=== PATIENT | female | born 1955 | race Caucasian/White ===

== ENCOUNTER 2016-11-28 16:37 | Inpatient (IN) | payer OTHER ==
--- NOTE | 2016-11-28 16:53 | ED Physician Chart ---
ED Chief Complaint/HPI - Patient Information Date Seen:: 11/28/16 Time Seen:: 16:48 Chief Complaint:: generalized weakness History of Present Illness:: 61-year-old female history of alcohol abuse, brought in by asthma with acute, constant, severe, generalized weakness since yesterday. Has associated yellowing of the eyes and distended abdomen. Says that she was seen and [facility] yesterday and had 9 L of fluid drained from her abdominal cavity. Says her last drink was 5 days ago. Historian:: Patient Review:: Nurse's Note Reviewed ED Review of Systems - Review of Systems Other: Complete system review otherwise unremarkable except as noted in history of present illness. ED Past Medical History - Past Medical History Past Medical History: Other (cirrhosis) Family History: None Social History: Non Smoker, No Alcohol (recently quit alcohol), No Drug Use Surgical History: other Psychiatricy History: None Medication: None Family Medical History - Family Member Mother History Unknown: Yes ED Physical Exam - Physical Examination Other:: INITIAL VITAL SIGNS: Reviewed by me GENERAL: Alert and interactive. No acute distress. Smells of urine. HEAD: Head is normocephalic and atraumatic EYES: EOMI. PERRL. Scleral icterus. No conjunctival injection ENT: Moist mucous membranes. NECK: Supple. No masses. Full range of motion RESPIRATORY: No tachypnea. Clear breath sounds bilaterally. No wheezing, rales, or rhonchi CV: Regular rate and rhythm. No murmurs, rubs, or gallops ABDOMEN: Soft, distended, positive fluid wave. Nontender. No guarding. No rebound. No masses. EXTREMITIES: No deformity. No cyanosis. No edema. SKIN: Warm and dry. Minor abrasions to the right upper extremity and bilateral lower extremities. NEUROLOGIC: Alert and oriented. Face is symmetric. Speech is normal. Moves all extremities equally. Motor and sensory distally intact. ED Labs/Radiology/EKG Results - Lab Results Results: Lab Results 11/28/16 11/28/16 11/28/16 Range/Units 17:06 17:06 17:06 WBC 14.5 H (4.8-10.8) Th/cmm RBC 2.69 L (3.80-5.10) Mil/cmm Hgb 10.5 L (11.7-15.5) gm/dL Hct 29.9 L (35.0-45.0) % MCV 111.2 H (81-100) fl MCH 39.0 H (27.0-31.0) pg MCHC Differential 35.0 (28.0-36.0) pg RDW 14.8 (11.5-20.0) % Plt Count 136 L (150-400) Th/cmm MPV 7.2 fl Band Neutrophils % 5 (0-10) % Neutrophils (Manual) 84 H (40-80) % Lymphocytes 8 L (20-50) % Monocytes 2 (2-10) % Nucleated RBCs 1.0 H (0-0) % Platelet Estimate ADEQUATE (NORMAL) Anisocytosis 2+ Macrocytosis 2+ Schistocytes 1+ PT 49.6 H (9.5-11.5) SECONDS INR 4.41 H* (0.5-1.4) PTT (Actin FS) 34.0 (26.0-38.0) SECONDS Sodium 131 L (136-145) mEq/L Potassium 3.5 (3.5-5.1) mEq/L Chloride 91 L (98-107) mEq/L Carbon Dioxide 25.0 (21.0-31.0) mEq/L Anion Gap 18.5 H (7.0-16.0) BUN 38 H (7-25) mg/dL Creatinine 1.9 H (0.6-1.2) mg/dL Est GFR ( Amer) 34.6 (>90) ml/min Est GFR (Non-Af Amer) 28.6 ml/min BUN/Creatinine Ratio 20.0 Glucose 112 H (70-105) mg/dL Whole Bld Lactic Acid (0.60-1.99) mmol/L Calcium 9.3 (8.6-10.3) mg/dL Total Bilirubin 8.3 H (0.3-1.0) mg/dL AST 364 H (13-39) U/L ALT 120 H (7-52) U/L Alkaline Phosphatase 162 H (34-104) U/L Creatine Kinase 697 H (30-223) U/L Total Protein 5.9 L (6.0-8.3) gm/dL Albumin 3.4 L (3.7-5.3) gm/dL Globulin 2.5 gm/dL Albumin/Globulin Ratio 1.4 (1.0-1.8) 11/28/16 Range/Units 17:06 WBC (4.8-10.8) Th/cmm RBC (3.80-5.10) Mil/cmm Hgb (11.7-15.5) gm/dL Hct (35.0-45.0) % MCV (81-100) fl MCH (27.0-31.0) pg MCHC Differential (28.0-36.0) pg RDW (11.5-20.0) % Plt Count (150-400) Th/cmm MPV fl Band Neutrophils % (0-10) % Neutrophils (Manual) (40-80) % Lymphocytes (20-50) % Monocytes (2-10) % Nucleated RBCs (0-0) % Platelet Estimate (NORMAL) Anisocytosis Macrocytosis Schistocytes PT (9.5-11.5) SECONDS INR (0.5-1.4) PTT (Actin FS) (26.0-38.0) SECONDS Sodium (136-145) mEq/L Potassium (3.5-5.1) mEq/L Chloride (98-107) mEq/L Carbon Dioxide (21.0-31.0) mEq/L Anion Gap (7.0-16.0) BUN (7-25) mg/dL Creatinine (0.6-1.2) mg/dL Est GFR ( Amer) (>90) ml/min Est GFR (Non-Af Amer) ml/min BUN/Creatinine Ratio Glucose (70-105) mg/dL Whole Bld Lactic Acid 2.75 H* (0.60-1.99) mmol/L Calcium (8.6-10.3) mg/dL Total Bilirubin (0.3-1.0) mg/dL AST (13-39) U/L ALT (7-52) U/L Alkaline Phosphatase (34-104) U/L Creatine Kinase (30-223) U/L Total Protein (6.0-8.3) gm/dL Albumin (3.7-5.3) gm/dL Globulin gm/dL Albumin/Globulin Ratio (1.0-1.8) - Radiology Results Results: Single AP VIEW Portable Chest X-ray was interpreted independently and contemporaneously by Allen Hoyos MD: No cardiomegaly Normal mediastinum No lung infiltrates No pneumothorax Pulmonary congestion No soft tissue or bony abnormalities - EKG Interpretations Comments:: 12-lead EKG Interpretation by Allen Hoyos MD: Normal Sinus Rhythm with ventricular rate of 98 beats per minute Normal axis Normal intervals No acute ST or T wave changes. No obvious STEMI ED Assessment - Assessment Critical Care Time: 35 Excludes all billable procedures: Yes This condition life threatening/high prob of deterioration: Yes Assessment/Comments:: Critical Care Time: 35 minutes Treatments/Evaluations: Close monitoring and treatment of unstable vital signs, cardiorespiratory, and neurologic status, while maintaining tight balance of fluid, respiratory, and cardiac interventions. This time includes discussing the case with the patient and the patient's family. This time does not include all procedures stated elsewhere in this record. This time also includes reviewing old records, labs and radiological studies. This time includes examining and re-examining the patient. Additionally, this time also includes arranging care with admitting and consulting physicians. ED Septic Shock - . Is Septic Shock (SBP<90, OR Lactate>4 mmol\L) present?: Yes - <6hrs of presentation: Vital Signs: Vital Signs Temp 97.9 F 11/28/16 17:02 HR 104 11/28/16 17:02 RR 18 11/28/16 17:02 BP 81/45 11/28/16 17:02 O2 Sat % 94 11/28/16 17:02 Temp 97.9 F 11/28/16 17:02 HR 101 11/28/16 18:14 RR 16 11/28/16 18:14 BP 94/58 11/28/16 18:14 O2 Sat % 94 11/28/16 18:14 Assessment of Lungs: Lung CTA bilateral, No Rales, No Wheezing Assessment of Heart: RRR, No thrill, No Gallops, No Murmur EKG Interpretation: NSR, No ST elevation, Documented in Result Capillary refill evaluation: Capillary refill < 2 secs Skin Exam: Warm, Dry, No Edema - Peripheral pulse evaluation Brachial Peripheral pulse evaluation-quality: +2 (normal) - Time of Reassessment Time of Reassessment: 17:56 ED Reassessment (Disposition) - Reassessment Reassessment:: Patient arrived extremely hypotensive and tachycardic. Blood pressure was noted to be 81 systolic. She smells of urine. She has a history of heavy alcohol use. Last drink 5 days ago. She is alert and oriented. Main complaint is weakness. She has a distended abdomen with fluid wave. Says not liters were taken off of the abdomen yesterday. As of the severe hypotension we gave IV fluids. Patient has a lactic acid level greater than 2. With the severe hypotension and elevated lactic acid and elevated white blood cell count of 14 and tachycardia patient has septic shock. Appears to have UTI. Multiple lab abnormalities including INR greater than 4 Bilirubin greater than 8 Severe macrocytic anemia This patient was critically ill on arrival. She required critical care time of 35 minutes. We did stabilize this patient in the ER. I discussed the case in detail with the admitting physician. Patient admitted for further workup and treatment. Admit MDM: Patient's infectious symptoms have not stabilized and the patient is at risk of rapid decompensation. The patient will be admitted for careful hydration, antibiotic therapy, and infectious source control. Severe Sepsis criteria: Infectious source: Urine End organ damage indicated by: Lactate > 2.0 mmol/L Hypotension (SBP < 90 or >40 mmHG drop or MAP < 65) INR > 1.5 Bili > 2 Sepsis Management: Time of recognition of severe sepsis/septic shock: Within 3 hours of recognition: Blood cultures x 2 before broad-spectrum antibiotics: Yes 30 ml/kg NS bolus Completed Initial lactate 2.75 Repeat lactate pending Septic Shock Assessment: Persistent hypotension (SBP < 90 or 40 mmHg drop, MAP < 65) despite 30 mL/kg IV fluid bolus, No Accepting Care Team Current data and ongoing care discussed. Time: 1819 Admitting Physician: Evie Young Disposal Worker(s): Outstanding Data: Repeat lactic acid Reassessment Condition:: Improved - Diagnosis Diagnosis:: Severe sepsis acute UTI Hyperbilirubinemia Elevated INR Macrocytic anemia Transaminitis History of alcohol abuse - Patient Disposition Discharge/Transfer:: Acute Care w/in this hosp Admitted to:: Telemetry Admitting Medical Physician:: Donnell Ignacio Time:: 18:03 Condition at Disposition:: Stable ED Discharge Plan - Patient Disposition Admit/Discharge/Transfer: Acute Care w/in this hosp
[2016-11-28] MEDS ORDERED: Lactated Ringer 1,000 ML IV ONE ×3 (16:58→18:05)
[2016-11-28] MEDS ORDERED: cefTRIAXone 1 GM in Sodium Chloride 0.9% 50 ML IV ONE (16:59)
[2016-11-28 17:15] LABS: HEMATOCRIT 29.9 % (35.0-45.0); HEMOGLOBIN 10.5 gm/dL (11.7-15.5); MEAN PLATELET VOLUME 7.2 fl; PLATELET COUNT 136 Th/cmm (150-400); RED BLOOD COUNT 2.69 Mil/cmm (3.80-5.10); RED CELL DISTRIBUTION WIDTH 14.8 % (11.5-20.0)
[2016-11-28 17:18] LABS: MEAN CELL VOLUME 111.2 fl (81-100); WHITE BLOOD COUNT 14.5 Th/cmm (4.8-10.8)
[2016-11-28 17:26] LABS: PROTHROMBIN TIME (TEST) 49.6 SECONDS (9.5-11.5)
[2016-11-28 17:29] LABS: ALB/GLOB RATIO 1.4 (1.0-1.8); ANION GAP 18.5 (7.0-16.0); BILIRUBIN,TOTAL 8.3 mg/dL (0.3-1.0); CALCIUM SERUM 9.3 mg/dL (8.6-10.3); CREATININE - SERUM 1.9 mg/dL (0.6-1.2); POTASSIUM SERUM 3.5 mEq/L (3.5-5.1)
[2016-11-28 17:41] LABS: ANISOCYTOSIS 2+; BAND NEUTROPHILE 5 % (0-10); NEUTROPHILS 84 % (40-80); PLATELET ESTIMATE ADEQUATE (NORMAL); TOTAL CELLS COUNTED 100
[2016-11-28 17:42] LABS: SCHISTOCYTES 1+
[2016-11-28 17:49] LABS: INR 4.41 (0.5-1.4)
[2016-11-28 18:01] LABS: URINE BILIRUBIN MODERATE (NEGATIVE); URINE BLOOD LARGE (NEGATIVE); URINE GLUCOSE (UA) NEGATIVE (NEGATIVE); URINE KETONE 15 mg/dL (NEGATIVE); URINE PH 5.5 (4.6 - 8.0); URINE PROTEIN 30 mg/dL (NEGATIVE)
[2016-11-28 18:02] LABS: URINE COLOR YELLOW
[2016-11-28 18:06] LABS: URINE BACTERIA MODERATE /hpf (NONE SEEN); URINE EPITHELIAL CELLS MODERATE /lpf (FEW); URINE WBC 50-100 /hpf (0-5)
[2016-11-28 18:13] LABS: CREATINE KINASE MB 9.7 ng/mL (0.6-6.3)
[2016-11-28] MEDS ORDERED: cefTRIAXone 1 GM in Sodium Chloride 0.9% 50 ML IV SCH (21:50)
[2016-11-28] MEDS ORDERED: Sodium Chloride 0.9% 1,000 ML IV SCH (21:50)
[2016-11-29 06:31] LABS: INR 3.55 (0.5-1.4); PROTHROMBIN TIME (TEST) 39.4 SECONDS (9.5-11.5)
[2016-11-29 06:39] LABS: ALB/GLOB RATIO 1.1 (1.0-1.8); ANION GAP 15.1 (7.0-16.0); BILIRUBIN,TOTAL 7.4 mg/dL (0.3-1.0); BUN/CREATININE RATIO 24.4; CALCIUM SERUM 8.5 mg/dL (8.6-10.3); CARBON DIOXIDE 25.2 mEq/L (21.0-31.0); CREATININE - SERUM 1.6 mg/dL (0.6-1.2); POTASSIUM SERUM 3.3 mEq/L (3.5-5.1)
[2016-11-29 07:14] LABS: HEMATOCRIT 28.7 % (35.0-45.0); MEAN CORPUSCULAR HEMOGLOBIN 38.4 pg (27.0-31.0); MEAN CORPUSCULAR HGB CONC 34.7 pg (28.0-36.0); MEAN PLATELET VOLUME 7.5 fl; RED CELL DISTRIBUTION WIDTH 14.9 % (11.5-20.0)
[2016-11-29 07:16] LABS: MEAN CELL VOLUME 110.4 fl (81-100); PLATELET COUNT 101 Th/cmm (150-400); WHITE BLOOD COUNT 10.6 Th/cmm (4.8-10.8)
--- NOTE | 2016-11-29 08:00 | History and Physical ---
History of Present Illness - HPI Chief Complaint: Generalized Weakness HPI: 61 year old female with history of alcohol abuse presents to [facility] ER via ambulance with generalized weakness and fatigue. Patient was noted to be hypotensive while in the ER and given IV hydration. Patient states that her last drink was 5 days ago. Patient presents with yellowing of her eyes and distended abdomen. States that she was seen at [facility] a few days ago and underwent paracentesis of her abdominal cavity. her initial labwork shows WBC's 14K Platelets 136K PT/INR 49.6/4.41. BUN 38 cr 1.9 AST 364 ALT 120 CK 697 Vital Signs: Last Vital Signs Temp 97.9 F 11/29/16 04:00 Pulse 72 11/29/16 04:00 Resp 18 11/29/16 04:00 BP 97/57 11/29/16 04:00 Pulse Ox 97 11/29/16 04:00 Past Medical History Cardiovascular: Report: No Pertinent Hx Pulmonary: Report: No Pertinent Hx BOLOGNA [employer]ER: Report: No Pertinent Hx GI: Report: Other (Alcoholic Liver Cirrhosis,) Psych: Report: No Pertinent Hx Musculoskeletal: Report: No Pertinent Hx Rheumatologic: Report: No pertinent Hx Infectious Disease: Report: No Pertinent Hx Renal/: Report: No Pertinent Hx Endocrine: Report: No Pertinent Hx Dermatology: Report: No Pertinent Hx - Past Surgical History Past Surgical History: No pertinent Hx Family Medical History - Family Member Mother History Unknown: Yes Social History Smoke: No Alcohol: None Drugs: None Lives: Alone - Medications Home Medications: Home Medication Medication Instructions Recorded Type NK [No Home Meds] 11/28/16 History - Allergies Allergies/Adverse Reactions: Allergies Allergy/AdvReac Type Severity Reaction Status Date / Time Penicillins [PCN] Allergy Verified 11/28/16 17:09 Review of Systems - Review of Systems Constitutional: Report: Weakness, Malaise Eyes: Report: Other (jaundice) ENT: Report: No Significant Respiratory: Report: No Significant Cardiovascular: Report: No Significant Gastrointestinal: Report: Other (abdominal distension) Genitourinary: Report: No Significant Musculoskeletal: Report: No Significant Skin: Report: No Significant Neurological: Report: Weakness Physical Exam - Physical Exam HEENT: Report: Ears Nose Throat within normal limits, Pharnyx within normal limits Neck: Report: Within normal limits Cardiovascular Systems: Report: +s1/s2 noted, Regular, Rate and Rhythm Respiratory: Report: Breath Sounds are within normal limits, Clear to Auscultation of lung gill Abdomen: Report: Hepatomegaly Noted Extremities: Report: Non-tender to palpation. Skin: Report: Color of skin is within normal limits Neuro/Psych: Report: Mood affect is within normal limits, A+Ox3 - Lab Results All Lab Results last 24 hours: Laboratory Last Values WBC 10.6 Th/cmm (4.8-10.8) D 11/29/16 05:52 RBC 2.60 Mil/cmm (3.80-5.10) L 11/29/16 05:52 Hgb 10.0 gm/dL (11.7-15.5) L 11/29/16 05:52 Hct 28.7 % (35.0-45.0) L 11/29/16 05:52 MCV 110.4 fl (81-100) H 11/29/16 05:52 MCH 38.4 pg (27.0-31.0) H 11/29/16 05:52 MCHC Differential 34.7 pg (28.0-36.0) 11/29/16 05:52 RDW 14.9 % (11.5-20.0) 11/29/16 05:52 Plt Count 101 Th/cmm (150-400) L D 11/29/16 05:52 MPV 7.5 fl 11/29/16 05:52 Band Neutrophils % 5 % (0-10) 11/28/16 17:06 Neutrophils (Manual) 84 % (40-80) H 11/28/16 17:06 Lymphocytes 8 % (20-50) L 11/28/16 17:06 Monocytes 2 % (2-10) 11/28/16 17:06 Nucleated RBCs 1.0 % (0-0) H 11/28/16 17:06 Platelet Estimate ADEQUATE (NORMAL) 11/28/16 17:06 Anisocytosis 2+ 11/28/16 17:06 Macrocytosis 2+ 11/28/16 17:06 Schistocytes 1+ 11/28/16 17:06 PT 39.4 SECONDS (9.5-11.5) H 11/29/16 05:52 INR 3.55 (0.5-1.4) H 11/29/16 05:52 PTT (Actin FS) 34.0 SECONDS (26.0-38.0) 11/28/16 17:06 Sodium 130 mEq/L (136-145) L 11/29/16 05:52 Potassium 3.3 mEq/L (3.5-5.1) L 11/29/16 05:52 Chloride 93 mEq/L (98-107) L 11/29/16 05:52 Carbon Dioxide 25.2 mEq/L (21.0-31.0) 11/29/16 05:52 Anion Gap 15.1 (7.0-16.0) 11/29/16 05:52 BUN 39 mg/dL (7-25) H 11/29/16 05:52 Creatinine 1.6 mg/dL (0.6-1.2) H 11/29/16 05:52 Est GFR ( Amer) 42.1 ml/min (>90) 11/29/16 05:52 Est GFR (Non-Af Amer) 34.8 ml/min 11/29/16 05:52 BUN/Creatinine Ratio 24.4 11/29/16 05:52 Glucose 113 mg/dL (70-105) H 11/29/16 05:52 Whole Bld Lactic Acid 2.52 mmol/L (0.60-1.99) H* 11/28/16 19:12 Calcium 8.5 mg/dL (8.6-10.3) L 11/29/16 05:52 Total Bilirubin 7.4 mg/dL (0.3-1.0) H 11/29/16 05:52 AST 353 U/L (13-39) H 11/29/16 05:52 ALT 119 U/L (7-52) H 11/29/16 05:52 Alkaline Phosphatase 153 U/L (34-104) H 11/29/16 05:52 Creatine Kinase 697 U/L (30-223) H 11/28/16 17:06 CK-MB (CK-2) 9.7 ng/mL (0.6-6.3) H 11/28/16 17:06 Total Protein 5.0 gm/dL (6.0-8.3) L 11/29/16 05:52 Albumin 2.6 gm/dL (3.7-5.3) L 11/29/16 05:52 Globulin 2.4 gm/dL 11/29/16 05:52 Albumin/Globulin Ratio 1.1 (1.0-1.8) 11/29/16 05:52 Urine Source CLEAN C 11/28/16 17:52 Urine Color YELLOW 11/28/16 17:52 Urine Clarity CLOUDY (CLEAR) H 11/28/16 17:52 Urine pH 5.5 (4.6 - 8.0) 11/28/16 17:52 Ur Specific [place] 1.025 (1.005-1.030) 11/28/16 17:52 Urine Protein 30 mg/dL (NEGATIVE) H 11/28/16 17:52 Urine Glucose (UA) NEGATIVE mg/dL (NEGATIVE) 11/28/16 17:52 Urine Ketones 15 mg/dL (NEGATIVE) H 11/28/16 17:52 Urine Blood LARGE (NEGATIVE) H 11/28/16 17:52 Urine Nitrate NEGATIVE (NEGATIVE) 11/28/16 17:52 Urine Bilirubin MODERATE (NEGATIVE) H 11/28/16 17:52 Urine Urobilinogen 1.0 E.U./dL (0.2 - 1.0) 11/28/16 17:52 Ur Leukocyte Esterase MODERATE (NEGATIVE) H 11/28/16 17:52 Urine RBC 2-5 /hpf (0-5) 11/28/16 17:52 Urine WBC 50-100 /hpf (0-5) H 11/28/16 17:52 Ur Epithelial Cells MODERATE /lpf (FEW) 11/28/16 17:52 Urine Bacteria MODERATE /hpf (NONE SEEN) 11/28/16 17:52 Laboratory Results - last 24 hr 11/29/16 11/29/16 11/29/16 05:52 05:52 05:52 WBC 10.6 D RBC 2.60 L Hgb 10.0 L Hct 28.7 L MCV 110.4 H MCH 38.4 H MCHC Differential 34.7 RDW 14.9 Plt Count 101 L D MPV 7.5 PT 39.4 H INR 3.55 H Sodium 130 L Potassium 3.3 L Chloride 93 L Carbon Dioxide 25.2 Anion Gap 15.1 BUN 39 H Creatinine 1.6 H Est GFR ( Amer) 42.1 Est GFR (Non-Af Amer) 34.8 BUN/Creatinine Ratio 24.4 Glucose 113 H Calcium 8.5 L Total Bilirubin 7.4 H AST 353 H ALT 119 H Alkaline Phosphatase 153 H Total Protein 5.0 L Albumin 2.6 L Globulin 2.4 Albumin/Globulin Ratio 1.1 - Assessment Assessment: Acute Alcoholic liver Cirrhosis ... GI consult. U/S Abd. hepatitis panel coagulopathy ... repeat PT/INR anemia ... repeat CBC sepsis ... ID consult hypokalemia ... add KCL to IVF, repeat CMP tomorrow anemia ... repeat CBC CKD ... repeat CMP. Nephrology consult with Dr. Jtainder GOTTLIEB ... IV Levofloxacin - Plan Plan: Acute Alcoholic liver Cirrhosis ... GI consult. U/S Abd. hepatitis panel coagulopathy ... repeat PT/INR anemia ... repeat CBC sepsis ... ID consult hypokalemia ... add KCL to IVF, repeat CMP tomorrow anemia ... repeat CBC CKD ... repeat CMP. Nephrology consult with Dr. Jatinder GOTTLIEB ... IV Levofloxacin
[2016-11-29] MEDS ORDERED: 0.9% NS w/40 mEq KCL 1,000 ML IV SCH (08:13)
--- NOTE | 2016-11-29 08:15 | Diagnostic Imaging Report ---
Exam: Chest portable HISTORY: Pain Findings: Portable upright examination of chest at 1732 hours reviewed no prior studies available comparison. The study demonstrates atelectatic changes in left base with superimposed left pleural effusion. The right lung parenchyma is well aerated. Bony structures intact. Mediastinal structures midline the aortic arch calcified. IMPRESSION: Left basilar atelectasis with effusion, early pneumonic infiltrate cannot be excluded, follow-up examination recommended.
[2016-11-29] MEDS ORDERED: Levofloxacin 500mg/100mL 500 MG/100 ML BAG IV SCH (09:00)
[2016-11-29 10:04] LABS: ANISOCYTOSIS 1+; BAND NEUTROPHILE 7 % (0-10); NEUTROPHILS 79 % (40-80); PLATELET ESTIMATE DECREASED PLATELETS (NORMAL); PLATELET MORPHOLOGY NORMAL (NORMAL); TOTAL CELLS COUNTED 100
[2016-11-29] MEDS ORDERED: Morphine Sulfate 2 mg/mL 1mL Syr IVP PRN (11:06)
--- NOTE | 2016-11-29 12:56 | Consultation ---
DATE OF CONSULTATION: 11/29/2016 REASON FOR CONSULT: Decompensated cirrhosis, ascites. HISTORY OF PRESENT ILLNESS: This is a 61-year-old female with past medical history significant for alcohol abuse, who presents with abdominal distention and weakness. The patient states that just prior to admission, she went to [facility] and had 9 liters of ascites, which was removed. She states that this is the first time she has had any paracentesis. She states that this is the first time she has had any hospitalizations related to liver disease. She ____ drinking earlier this week. The patient denies any episodes of hematemesis. The patient currently denies any significant abdominal pain. PAST MEDICAL HISTORY: As per HPI. SOCIAL HISTORY: Positive for alcohol abuse. FAMILY HISTORY: No family history of GI malignancies. PAST SURGICAL HISTORY: No past surgeries. MEDICATIONS: Please see medication reconciliation form. FAMILY HISTORY: No family history of GI malignancies. ALLERGIES: No known drug allergies. REVIEW OF SYSTEMS: As per HPI. PHYSICAL EXAMINATION: VITAL SIGNS: Temperature 97.9, pulse 72, respirations 18, blood pressure 97/57. GENERAL: The patient is in no acute distress. HEENT: Positive scleral icterus and jaundice. CARDIOVASCULAR: Regular rhythm. ABDOMEN: Distended with fluid wave. EXTREMITIES: No lower extremity edema. LABORATORY DATA: White count 14.5, hemoglobin 10.5, platelets are 136. INR is 3.55, total bilirubin is 7.4, AST is 353, ALT is 119. Urinalysis shows 50-100 urine white blood cells with moderate leukocyte esterase. ASSESSMENT AND PLAN: A 61-year-old female likely with newly diagnosed decompensated alcoholic cirrhosis with ascites, jaundice, is also complicated by urinary tract infection. The patient is now status post paracentesis. We will try to obtain these fluid studies from [place]. Once the kidney function has improved, may consider a standard diuretic regimen consisting on Lasix 40 mg and Aldactone 100 mg. The patient will need to be on a 2 gram sodium diet. We will continue antibiotics for urinary tract infection. The patient strongly counseled regarding cessation of alcohol use. Thank you for this consult and allowing me to participate in the care of this patient. JOB# [id number]
[2016-11-29] MEDS ORDERED: Albumin 25% 25gm/100mL 25 GM/100 ML BTL IV ONE (15:09)
[2016-11-29] MEDS ORDERED: Albumin 25% 25gm/100mL 50 GM/200 ML BTL IV SCH (15:15)
--- NOTE | 2016-11-29 17:07 | Consultation ---
Consult Note - Consult Note Service Date: 11/29/16 Referring Physician: Donnell Ignacio Consult Note: PHYSICIAN Consultation Note: Date of Admission: 11/28/16 Purpose of Consultation: UTi, Leukocytosis. Chief Complaint: Patient KWESI COX was admitted to [facility] with ACUTE LIVER CIRRHOSIS,SEPSIS,LEUKOCYTOSIS. History of Present Illness: 61-year-old female history of alcohol abuse, asthma with acute, constant, severe , generalized weakness since yesterday. She also complained of yellowing of the eyes and distended abdomen. She denies any fever, or chills. On intial evaluation, her temperature was 97.5F and WBC count was 14,500. Sepsis workup was performed and the urinalysis showed pyuria and bacteriuria. The lactic acid was 2.75. Antibiotic-luna, patient was started on Levaquin. ID consult was called for further antibiotic management. Patient's lab also showed higher INR. Patient had noted swelling of the legs and abdomen for last 2 months or so. Once she tripped and fell. She noticed ballooning of the abdomen, with yellowing of her eyes for last two weeks so, she went to [place] last week, and 9 liter of ascitic fluid was drained. She tripped and fell last again. She had also developed generalized weakness. She had been admitted to the hospital for further care. Past Medical History: End-stage liver disease, asthma, alcohol abuse. Allergies Allergy/AdvReac Type Severity Reaction Status Date / Time Penicillins [PCN] Allergy Verified 11/28/16 17:09 Vital Signs Temp 97.9 F 11/29/16 12:00 Pulse 91 11/29/16 12:00 Resp 18 11/29/16 12:00 BP 82/52 11/29/16 12:00 Pulse Ox 98 11/29/16 12:00 Intake & Output 11/28/16 11/29/16 11/29/16 18:59 06:59 18:59 Intake Total 100 Output Total 150 Balance -50 Weight (lbs) 74.893 kg Intake: Oral 100 Output: Urine 150 Other: # Bowel Movements 0 Laboratory Results - last 24 hr 11/29/16 11/29/16 11/29/16 05:52 05:52 05:52 WBC 10.6 D RBC 2.60 L Hgb 10.0 L Hct 28.7 L MCV 110.4 H MCH 38.4 H MCHC Differential 34.7 RDW 14.9 Plt Count 101 L D MPV 7.5 Band Neutrophils % 7 Neutrophils (Manual) 79 Lymphocytes 11 L Monocytes 3 Platelet Estimate DECREASED PLATELETS Platelet Morphology NORMAL Anisocytosis 1+ Macrocytosis 2+ RBC Morph Micro Appear ABNORMAL PT 39.4 H INR 3.55 H Sodium 130 L Potassium 3.3 L Chloride 93 L Carbon Dioxide 25.2 Anion Gap 15.1 BUN 39 H Creatinine 1.6 H Est GFR ( Amer) 42.1 Est GFR (Non-Af Amer) 34.8 BUN/Creatinine Ratio 24.4 Glucose 113 H Calcium 8.5 L Total Bilirubin 7.4 H AST 353 H ALT 119 H Alkaline Phosphatase 153 H Total Protein 5.0 L Albumin 2.6 L Globulin 2.4 Albumin/Globulin Ratio 1.1 Home Medication Medication Instructions Recorded Type NK [No Home Meds] 11/28/16 History Current Medications Generic Name Dose Route Start Last Admin Trade Name Freq PRN Reason Stop Dose Admin Potassium Chloride/Sodium Chloride 1,000 mls @ 50 mls/hr 11/29/16 08:13 11/29 09:09 0.9% Ns W/40 Meq Kcl IV 01/28/17 08:12 50 mls/hr .Q20H SHREYAS Administration Levofloxacin 250 mg in 50 mls @ 50 mls/hr 11/30/16 09:00 Levaquin Pb IV 01/29/17 08:59 Q24HR SHREYAS Albumin Human 50 gm in 200 mls @ 50 mls/hr 11/29/16 15:15 11/29/16 15:43 Albuminar 25% IV 11/29/16 21:00 50 mls/hr 1515 SHREYAS Administration Morphine Sulfate 1 mg 11/29/16 11:06 Morphine IVP 01/28/17 11:14 Q6H PRN Pain (Moderate) Review of Systems: A 12 point ROS was reviewed with the pertinent positive and negatives noted in the HPI. Social History Smoking Status Former smoker. Alcohol status she had a history of drinking alcohol in the past, she stopped drinking alcohol 4 years ago. However she has started drinking alcohol again for last 4 years. Family Medical History Unknown Physical Exam: General: cachectic, not indistress, non toxic. HEENT: Head atraumatic, bitemporal wasting. Oral cavity moist, pink tongue, eyes [pallor +, icterus +, PERRLA, EOMI. Neck: Supple, no JVD, no use of acc neck muscles. Cardio: S1 abd S2 WNL, no acute distress. Respiratory: Vesicular breath sound, no crackles no wheezing. Decreased at the bases. Abdominal: Soft, nontender, distended. Ascites present. No hepatosplenomegaly presented. Genital/Urinary: Deferred. Extremities: No cyanosis, no clubbing. Edema present 4+. Pulses are palpable. Neurological: Alert, awake, oriented 3. Assessment: 1. UTI. 2. End-stage liver disease. 3. Alcohol abuse. 4. Anemia, likely GI bleed. 5. Jaundice. 6. Alcohol abuse. Plan: Continue Levaquin. After discharge, Patient is to follow-up with [facility], liver transplant center. Abdominal ultrasound. HIV screen, hepatitis panel. Thank you, Dr. Ignacio, for involving me taking care of this patient.. Signed, Stevie Duran M.D. 11/29/004263
[2016-11-30 06:07] LABS: HEMOGLOBIN 10.1 gm/dL (11.7-15.5); MEAN CORPUSCULAR HEMOGLOBIN 38.9 pg (27.0-31.0); MEAN CORPUSCULAR HGB CONC 34.8 pg (28.0-36.0); MEAN PLATELET VOLUME 7.5 fl; PLATELET COUNT 84 Th/cmm (150-400); RED BLOOD COUNT 2.59 Mil/cmm (3.80-5.10); RED CELL DISTRIBUTION WIDTH 14.9 % (11.5-20.0); WHITE BLOOD COUNT 10.6 Th/cmm (4.8-10.8)
[2016-11-30 06:33] LABS: INR 2.36 (0.5-1.4); PROTHROMBIN TIME (TEST) 25.7 SECONDS (9.5-11.5)
[2016-11-30 06:39] LABS: ALB/GLOB RATIO 1.6 (1.0-1.8); ANION GAP 11.3 (7.0-16.0); BUN/CREATININE RATIO 27.3; CALCIUM SERUM 9.1 mg/dL (8.6-10.3); CREATININE - SERUM 1.5 mg/dL (0.6-1.2); MAGNESIUM 1.7 mg/dL (1.9-2.7); POTASSIUM SERUM 3.3 mEq/L (3.5-5.1); URIC ACID 12.1 mg/dL (2.3-6.6)
[2016-11-30 06:50] LABS: BAND NEUTROPHILE 4 % (0-10); NEUTROPHILS 74 % (40-80); TOTAL CELLS COUNTED 100
[2016-11-30 06:51] LABS: PLATELET ESTIMATE SLIGHT DECREASED (NORMAL); TOXIC GRANULATION 1+
[2016-11-30 06:52] LABS: MEAN CELL VOLUME 111.7 fl (81-100)
[2016-11-30 07:11] LABS: PHOSPHOROUS 0.4 mg/dL (2.5-5.0)
[2016-11-30] MEDS: Levofloxacin 250 mg/50 mL Premix Bag IV SCH (08:13)
--- NOTE | 2016-11-30 08:18 | Diagnostic Imaging Report ---
Ultrasound abdomen HISTORY: Abdominal pain, cirrhosis COMPARISON: None Technique: Sonography of the abdomen was performed in multiple planes. FINDINGS: Exam is limited due to bowel gas and body habitus. The liver demonstrates increased echogenicity and measures 19.3 cm. No focal lesions identified. Diffuse gallbladder sludge is noted. No discrete gallstones identified. The gallbladder wall measures 3 mm. The CBD measures 5 mm. Evaluation of pancreas is limited due to bowel gas. The right kidney measures 11.4 x 5.1 cm. No evidence of focal lesions or hydronephrosis. There is poor is delineation of the left renal parenchyma. The spleen measures 10.7 cm. Evaluation of focal splenic abnormality is limited on this exam. The Abdominal aorta was not well-visualized. Mild to moderate ascites is noted. IMPRESSION: Limited exam due to body habitus and bowel gas Mild to moderate ascites. Hepatomegaly with increased echogenicity which may be due to underlying fatty infiltration. Diffuse gallbladder sludge. Borderline prominent gallbladder wall is noted. No discrete gallstones identified, however, small gallstones cannot be completely excluded. Suboptimal evaluation of the left kidney and spleen.
[2016-11-30] MEDS ORDERED: Potassium Phosphate 30 MMOLE in Sodium Chloride 0.9% 250 ML IV ONE (08:30)
--- NOTE | 2016-11-30 08:50 | General Progress Note ---
Subjective - Review of Systems Service Date: 11/30/16 Subjective: 61 year old female who presents with chronic liver cirrhosis. Patient is feeling much better. less generalized weakness and fatigue. blood pressure better today. no nausea or vomiting. Objective - Results Result Diagrams: 11/30/16 05:10 11/30/16 05:10 Recent Labs: Laboratory Last Values WBC 10.6 Th/cmm (4.8-10.8) 11/30/16 05:10 RBC 2.59 Mil/cmm (3.80-5.10) L 11/30/16 05:10 Hgb 10.1 gm/dL (11.7-15.5) L 11/30/16 05:10 Hct 29.0 % (35.0-45.0) L 11/30/16 05:10 MCV 111.7 fl (81-100) H 11/30/16 05:10 MCH 38.9 pg (27.0-31.0) H 11/30/16 05:10 MCHC Differential 34.8 pg (28.0-36.0) 11/30/16 05:10 RDW 14.9 % (11.5-20.0) 11/30/16 05:10 Plt Count 84 Th/cmm (150-400) L 11/30/16 05:10 MPV 7.5 fl 11/30/16 05:10 Band Neutrophils % 4 % (0-10) 11/30/16 05:10 Neutrophils (Manual) 74 % (40-80) 11/30/16 05:10 Lymphocytes 14 % (20-50) L 11/30/16 05:10 Monocytes 8 % (2-10) 11/30/16 05:10 Nucleated RBCs 2.0 % (0-0) H 11/30/16 05:10 Toxic Granulation 1+ 11/30/16 05:10 Platelet Estimate SLIGHT DECREASED (NORMAL) 11/30/16 05:10 Platelet Morphology NORMAL (NORMAL) 11/29/16 05:52 Anisocytosis 1+ 11/29/16 05:52 Macrocytosis 1+ 11/30/16 05:10 Schistocytes 1+ 11/28/16 17:06 RBC Morph Micro Appear ABNORMAL (NORMAL) 11/30/16 05:10 Eos Smear Source URINE 11/29/16 17:10 Eos Smear Total Cells NONE SEEN (NONE SEEN) 11/29/16 17:10 PT 25.7 SECONDS (9.5-11.5) H 11/30/16 05:10 INR 2.36 (0.5-1.4) H 11/30/16 05:10 PTT (Actin FS) 34.0 SECONDS (26.0-38.0) 11/28/16 17:06 Sodium 134 mEq/L (136-145) L 11/30/16 05:10 Potassium 3.3 mEq/L (3.5-5.1) L 11/30/16 05:10 Chloride 96 mEq/L (98-107) L 11/30/16 05:10 Carbon Dioxide 30.0 mEq/L (21.0-31.0) 11/30/16 05:10 Anion Gap 11.3 (7.0-16.0) 11/30/16 05:10 BUN 41 mg/dL (7-25) H 11/30/16 05:10 Creatinine 1.5 mg/dL (0.6-1.2) H 11/30/16 05:10 Est GFR ( Amer) 45.4 ml/min (>90) 11/30/16 05:10 Est GFR (Non-Af Amer) 37.5 ml/min 11/30/16 05:10 BUN/Creatinine Ratio 27.3 11/30/16 05:10 Glucose 132 mg/dL (70-105) H 11/30/16 05:10 Whole Bld Lactic Acid 2.52 mmol/L (0.60-1.99) H* 11/28/16 19:12 Uric Acid 12.1 mg/dL (2.3-6.6) H 11/30/16 05:10 Calcium 9.1 mg/dL (8.6-10.3) 11/30/16 05:10 Phosphorus 0.4 mg/dL (2.5-5.0) L* 11/30/16 05:10 Magnesium 1.7 mg/dL (1.9-2.7) L 11/30/16 05:10 Total Bilirubin 10.0 mg/dL (0.3-1.0) H 11/30/16 05:10 AST 289 U/L (13-39) H 11/30/16 05:10 ALT 125 U/L (7-52) H 11/30/16 05:10 Alkaline Phosphatase 181 U/L (34-104) H 11/30/16 05:10 Creatine Kinase 697 U/L (30-223) H 11/28/16 17:06 CK-MB (CK-2) 9.7 ng/mL (0.6-6.3) H 11/28/16 17:06 Total Protein 5.6 gm/dL (6.0-8.3) L 11/30/16 05:10 Albumin 3.4 gm/dL (3.7-5.3) L 11/30/16 05:10 Globulin 2.2 gm/dL 11/30/16 05:10 Albumin/Globulin Ratio 1.6 (1.0-1.8) 11/30/16 05:10 Urine Source CLEAN C 11/28/16 17:52 Urine Color YELLOW 11/28/16 17:52 Urine Clarity CLOUDY (CLEAR) H 11/28/16 17:52 Urine pH 5.5 (4.6 - 8.0) 11/28/16 17:52 Ur Specific [place] 1.025 (1.005-1.030) 11/28/16 17:52 Urine Protein 30 mg/dL (NEGATIVE) H 11/28/16 17:52 Urine Glucose (UA) NEGATIVE mg/dL (NEGATIVE) 11/28/16 17:52 Urine Ketones 15 mg/dL (NEGATIVE) H 11/28/16 17:52 Urine Blood LARGE (NEGATIVE) H 11/28/16 17:52 Urine Nitrate NEGATIVE (NEGATIVE) 11/28/16 17:52 Urine Bilirubin MODERATE (NEGATIVE) H 11/28/16 17:52 Urine Urobilinogen 1.0 E.U./dL (0.2 - 1.0) 11/28/16 17:52 Ur Leukocyte Esterase MODERATE (NEGATIVE) H 11/28/16 17:52 Urine RBC 2-5 /hpf (0-5) 11/28/16 17:52 Urine WBC 50-100 /hpf (0-5) H 11/28/16 17:52 Ur Epithelial Cells MODERATE /lpf (FEW) 11/28/16 17:52 Urine Bacteria MODERATE /hpf (NONE SEEN) 11/28/16 17:52 Ur Random Sodium 8 mmol/L 11/29/16 17:10 Urine Creatinine 119.0 mg/dl (28.0-217.0) 11/29/16 17:10 - Physical Exam Vitals and I&O: Vital Signs Temp 98.0 F 11/30/16 04:00 Pulse 86 11/30/16 04:00 Resp 17 11/30/16 04:00 BP 96/63 11/30/16 04:00 Pulse Ox 97 11/30/16 04:00 Intake & Output 11/29/16 11/30/16 11/30/16 18:59 06:59 18:59 Intake Total 500 300 Output Total 100 350 Balance 400 -50 Weight (lbs) 74.843 kg 76.793 kg Intake: Oral 300 300 Albumin 200 Output: Urine 100 350 Other: # Bowel Movements 0 Active Medications: Current Medications Potassium Chloride/Sodium Chloride (0.9% Ns W/40 Meq Kcl) 1,000 mls @ 50 mls/ hr IV .Q20H SHREYAS Stop: 01/28/17 08:12 Last Admin: 11/29/16 09:09 Dose: 50 mls/hr Levofloxacin (Levaquin Pb) 250 mg in 50 mls @ 50 mls/hr IV Q24HR [facility] Stop: 01/29/17 08:59 Last Admin: 11/30/16 08:13 Dose: 50 mls/hr Potassium Phosphate 30 mmole/ (Sodium Chloride) 260 mls @ 42.5 mls/hr IV X1 ONE Stop: 11/30/16 14:37 Morphine Sulfate (Morphine) 1 mg IVP Q6H PRN PRN Reason: Pain (Moderate) Stop: 01/28/17 11:14 General: Alert, Oriented x3, No acute distress HEENT: Atraumatic, PERRLA, EOMI Neck: Supple Cardiovascular: Regular rate, Normal S1, Normal S2 Lungs: Clear to auscultation Abdomen: Bowel sounds, Soft Extremities: no Clubbing, no Cyanosis, no Edema Assessment/Plan - Assessment Assessment: Acute Alcoholic liver Cirrhosis ... GI consult. U/S Abd. hepatitis panel coagulopathy ... repeat PT/INR anemia ... repeat CBC sepsis ... ID consult hypokalemia ... add KCL to IVF, repeat CMP tomorrow anemia ... repeat CBC CKD ... repeat CMP. Nephrology consult with Dr. Tobias UTI ... IV Levofloxacin - Plan Plan: Acute Alcoholic liver Cirrhosis ... GI consult. U/S Abd. hepatitis panel coagulopathy ... repeat PT/INR anemia ... repeat CBC sepsis ... ID consult hypokalemia ... add KCL to IVF, repeat CMP tomorrow anemia ... repeat CBC CKD ... repeat CMP. Nephrology consult with Dr. Tobias UTI ... IV Levofloxacin
[2016-11-30 12:09] LABS: HEP B CORE IGM Negative (Negative); HEP C ANTIBODY <0.1 s/co ratio (0.0-0.9)
[2016-11-30] MEDS ORDERED: Mag Sulfate 2gm/50mL Premix 2 GM/50 ML BAG IV ONE (14:15)
--- NOTE | 2016-11-30 15:35 | Infectious Disease Prog Note ---
Infectious Disease Subjective - Review of Systems Service Date: 11/30/16 Events since last encounter: None. Subjective: No fever no chills. Still complains of generalized weakness. Infectious Disease Objective - Results Result Diagrams: 11/30/16 05:10 11/30/16 05:10 Recent Labs: Laboratory Last Values WBC 10.6 Th/cmm (4.8-10.8) 11/30/16 05:10 RBC 2.59 Mil/cmm (3.80-5.10) L 11/30/16 05:10 Hgb 10.1 gm/dL (11.7-15.5) L 11/30/16 05:10 Hct 29.0 % (35.0-45.0) L 11/30/16 05:10 MCV 111.7 fl (81-100) H 11/30/16 05:10 MCH 38.9 pg (27.0-31.0) H 11/30/16 05:10 MCHC Differential 34.8 pg (28.0-36.0) 11/30/16 05:10 RDW 14.9 % (11.5-20.0) 11/30/16 05:10 Plt Count 84 Th/cmm (150-400) L 11/30/16 05:10 MPV 7.5 fl 11/30/16 05:10 Band Neutrophils % 4 % (0-10) 11/30/16 05:10 Neutrophils (Manual) 74 % (40-80) 11/30/16 05:10 Lymphocytes 14 % (20-50) L 11/30/16 05:10 Monocytes 8 % (2-10) 11/30/16 05:10 Nucleated RBCs 2.0 % (0-0) H 11/30/16 05:10 Toxic Granulation 1+ 11/30/16 05:10 Platelet Estimate SLIGHT DECREASED (NORMAL) 11/30/16 05:10 Platelet Morphology NORMAL (NORMAL) 11/29/16 05:52 Anisocytosis 1+ 11/29/16 05:52 Macrocytosis 1+ 11/30/16 05:10 Schistocytes 1+ 11/28/16 17:06 RBC Morph Micro Appear ABNORMAL (NORMAL) 11/30/16 05:10 Eos Smear Source URINE 11/29/16 17:10 Eos Smear Total Cells NONE SEEN (NONE SEEN) 11/29/16 17:10 PT 25.7 SECONDS (9.5-11.5) H 11/30/16 05:10 INR 2.36 (0.5-1.4) H 11/30/16 05:10 PTT (Actin FS) 34.0 SECONDS (26.0-38.0) 11/28/16 17:06 Sodium 134 mEq/L (136-145) L 11/30/16 05:10 Potassium 3.3 mEq/L (3.5-5.1) L 11/30/16 05:10 Chloride 96 mEq/L (98-107) L 11/30/16 05:10 Carbon Dioxide 30.0 mEq/L (21.0-31.0) 11/30/16 05:10 Anion Gap 11.3 (7.0-16.0) 11/30/16 05:10 BUN 41 mg/dL (7-25) H 11/30/16 05:10 Creatinine 1.5 mg/dL (0.6-1.2) H 11/30/16 05:10 Est GFR ( Amer) 45.4 ml/min (>90) 11/30/16 05:10 Est GFR (Non-Af Amer) 37.5 ml/min 11/30/16 05:10 BUN/Creatinine Ratio 27.3 11/30/16 05:10 Glucose 132 mg/dL (70-105) H 11/30/16 05:10 Whole Bld Lactic Acid 2.52 mmol/L (0.60-1.99) H* 11/28/16 19:12 Uric Acid 12.1 mg/dL (2.3-6.6) H 11/30/16 05:10 Calcium 9.1 mg/dL (8.6-10.3) 11/30/16 05:10 Phosphorus 0.4 mg/dL (2.5-5.0) L* 11/30/16 05:10 Magnesium 1.7 mg/dL (1.9-2.7) L 11/30/16 05:10 Total Bilirubin 10.0 mg/dL (0.3-1.0) H 11/30/16 05:10 AST 289 U/L (13-39) H 11/30/16 05:10 ALT 125 U/L (7-52) H 11/30/16 05:10 Alkaline Phosphatase 181 U/L (34-104) H 11/30/16 05:10 Creatine Kinase 697 U/L (30-223) H 11/28/16 17:06 CK-MB (CK-2) 9.7 ng/mL (0.6-6.3) H 11/28/16 17:06 Total Protein 5.6 gm/dL (6.0-8.3) L 11/30/16 05:10 Albumin 3.4 gm/dL (3.7-5.3) L 11/30/16 05:10 Globulin 2.2 gm/dL 11/30/16 05:10 Albumin/Globulin Ratio 1.6 (1.0-1.8) 11/30/16 05:10 Urine Source CLEAN C 11/28/16 17:52 Urine Color YELLOW 11/28/16 17:52 Urine Clarity CLOUDY (CLEAR) H 11/28/16 17:52 Urine pH 5.5 (4.6 - 8.0) 11/28/16 17:52 Ur Specific [place] 1.025 (1.005-1.030) 11/28/16 17:52 Urine Protein 30 mg/dL (NEGATIVE) H 11/28/16 17:52 Urine Glucose (UA) NEGATIVE mg/dL (NEGATIVE) 11/28/16 17:52 Urine Ketones 15 mg/dL (NEGATIVE) H 11/28/16 17:52 Urine Blood LARGE (NEGATIVE) H 11/28/16 17:52 Urine Nitrate NEGATIVE (NEGATIVE) 11/28/16 17:52 Urine Bilirubin MODERATE (NEGATIVE) H 11/28/16 17:52 Urine Urobilinogen 1.0 E.U./dL (0.2 - 1.0) 11/28/16 17:52 Ur Leukocyte Esterase MODERATE (NEGATIVE) H 11/28/16 17:52 Urine RBC 2-5 /hpf (0-5) 11/28/16 17:52 Urine WBC 50-100 /hpf (0-5) H 11/28/16 17:52 Ur Epithelial Cells MODERATE /lpf (FEW) 11/28/16 17:52 Urine Bacteria MODERATE /hpf (NONE SEEN) 11/28/16 17:52 Ur Random Sodium 8 mmol/L 11/29/16 17:10 Urine Creatinine 119.0 mg/dl (28.0-217.0) 11/29/16 17:10 Hepatitis A IgM Ab Negative (Negative) 11/29/16 05:52 Hep Bs Antigen Negative (Negative) 11/29/16 05:52 Hep B Core IgM Ab Negative (Negative) 11/29/16 05:52 Hepatitis C Antibody <0.1 s/co ratio (0.0-0.9) 11/29/16 05:52 - Physical Exam Vitals and I&O: Vital Signs Temp 98.9 F 11/30/16 12:00 Pulse 90 11/30/16 12:00 Resp 18 11/30/16 12:00 BP 99/58 11/30/16 12:00 Pulse Ox 96 11/30/16 12:00 Intake & Output 11/29/16 11/30/16 11/30/16 18:59 06:59 18:59 Intake Total 500 300 50 Output Total 100 350 Balance 400 -50 50 Weight (lbs) 74.843 kg 76.793 kg Intake: Intake, IV Amount 50 Levofloxacin 250mg/50mL 50 250 mg In 50 ml @ 50 mls/ hr IV Q24HR [facility] Rx#: [id number] Oral 300 300 Albumin 200 Output: Urine 100 350 Other: # Bowel Movements 0 Active Medications: Current Medications Furosemide (Lasix) 40 mg PO DAILY [facility] Stop: 01/29/17 13:59 Levofloxacin (Levaquin Pb) 250 mg in 50 mls @ 50 mls/hr IV Q24HR [facility] Stop: 01/29/17 08:59 Last Infusion: 11/30/16 09:15 Dose: Infused Magnesium Sulfate (Magnesium Sulfate Premix) 2 gm in 50 mls @ 25 mls/hr IV X1 ONE Stop: 11/30/16 16:14 Morphine Sulfate (Morphine) 1 mg IVP Q6H PRN PRN Reason: Pain (Moderate) Stop: 01/28/17 11:14 Spironolactone (Aldactone) 25 mg PO BID [facility] Stop: 01/29/17 16:59 General: no acute distress, cachectic HEENT: atraumatic, normocephalic, PERRLA, EOMI Neck: supple, no thyromegaly, no rigid Cardiovascular: S1S2, regular Lungs: clear to auscultation bilaterally, clear to percussion Abdomen: soft, distended, bowel sounds, no tender Extremities: edema, no cyanosis, no clubbing Neurological: awake, alert, oriented, CN 2-12 intact Skin: intact Infectious Disease Assmt/Plan - Assessment Assessment: 1. UTI. Escherichia coli. 2. Thrombocytopenia. 3. Coagulopathy secondary to liver disease. 4. History is liver disease. 5. Jaundice. 6. Anemia, rule out GI bleed. 7. Alcohol abuse. 8. Escherichia coli infection. - Plan Plan: Continue Levaquin.
--- NOTE | 2016-11-30 17:09 | Consultation ---
DATE OF CONSULTATION: 11/30/2016 CURTAIN STRETCHER: Rocky Tobias M.D. REASON FOR CONSULTATION: Worsening kidney function, electrolyte imbalance and fluid management. HISTORY OF PRESENT ILLNESS: This is a 61-year-old female with past medical history of chronic kidney disease, who came in because of generalized weakness. A few days prior to admission, the patient noted progressive increase in her abdominal girth. This was associated with discomfort, dyspnea on exertion, jaundice as well as icteric sclerae. One day prior to admission, she developed nausea and vomiting as well as persistent abdominal pain. Her abdomen had increased in size. Paramedics were notified and she was brought to [facility]. She underwent paracentesis and approximately 9 L was obtained. She suddenly felt weak, however, she was discharged home. A few hours prior to admission, she remains quite weak and cannot even get out of bed. Her ____ her out of the house and brought to the Emergency Room. Her systolic blood pressures were in the high 80s and low 90s. White count was 14.5. Total bili was 8.3 with elevated LFTs. Abdominal ultrasound revealed mild to moderate ascites, hepatomegaly with fatty infiltration, diffuse gallbladder sludge, possible small gallbladder stone. She has a history of chronic kidney disease. She came in now with a BUN/creatinine of 38/1.9. She did have some nausea and vomiting, but she had no diarrhea. PAST MEDICAL HISTORY: 1. Chronic kidney disease. 2. Chronic liver disease secondary to alcohol cirrhosis and possible fatty liver. 3. Chronic ascites with last paracentesis 5 days ago. 4. Alcohol abuse wherein she quit 12 years ago. She resumed heavy drinking 4 years ago, which she blames on the presence of numerous cats at home. MEDICATIONS: She is currently on levofloxacin and morphine. ALLERGIES: PENICILLIN. SOCIAL HISTORY: Denied any history of smoking. As mentioned, she developed alcohol abuse 4 years ago after quitting 12 years before. She retired as an employee at the [employer]. FAMILY HISTORY: Noncontributory to present illness. REVIEW OF SYSTEMS: CONSTITUTIONAL: She did complain of weakness. Appetite had deteriorated. No fever, no chills. HEENT: She has some lightheadedness. No headaches. Vision is poor. Hearing acuity is within normal limits. CARDIORESPIRATORY: No chest pain, palpitations, diaphoresis or cough. GASTROINTESTINAL: No nausea and vomiting, abdominal pain or cramping, hematemesis, melena, hematochezia, no diarrhea. ENDOCRINE: She does not have a history of diabetes, no thyroid abnormalities. MUSCULOSKELETAL: Multiple joint arthralgias. GENITOURINARY: History of chronic kidney disease. At the present time, no dysuria nor hematuria. HEMATOLOGIC: History of chronic anemia. She also has a coagulopathy. NEUROPSYCH: No syncopal episode. No seizure activity. She has some form of neuropathy. PHYSICAL EXAMINATION: GENERAL: The patient is awake, mild distress. VITAL SIGNS: Her blood pressure is 95/55, pulse is ____, temperature 98 degrees. SKIN: Poor turgor, warm. No rash. She has jaundice. HEENT: Head: Normocephalic, atraumatic. Eyes: Extraocular muscles intact. Pupils equal, round, reactive to light and accommodates. Icteric sclerae. Pale conjunctivae. Nose: Midline nasal septum. Mouth: Dry mucosa with poor dentition. NECK: Supple, no adenopathy, no thyromegaly, no bruits. Trachea palpated in the midline. CHEST AND CARDIOVASCULAR: S1, S2, distant heart sounds. No rub, no murmur appreciated. LUNGS: Equal expansion. No use of accessory muscles. No supraclavicular retractions. Decreased breath sounds, few rhonchi, but no rales nor wheezes appreciated. BREASTS: Symmetrical, without any discharge. ABDOMEN: Presence of shifting dullness suggestive of ascites, soft on palpation, no rebound or muscle guarding. She has tympanitic sounds on percussion. No bruits either diastolic or systolic. RECTAL: The patient refused. GENITOURINARY: Normal appearing female genitalia. MUSCULOSKELETAL: No effusions present in her joints with adequate range of motion. EXTREMITIES: She does have +2 bipedal edema, she has some papular rashes distal to both knees. NEUROLOGIC: The patient is alert, verbal. Motor is 5/5. Cranial nerves 2-12 intact. Sensory intact. LABORATORY DATA: Revealed white count 14.5, hemoglobin 10.5, hematocrit 29.9, platelets 136. PT 49.6, INR 4.41, PTT 34. Sodium 131, potassium 3.5, chloride 91, bicarbonate 25, BUN 38, creatinine 1.9, glucose 112. Lactic acid 2.52, calcium 9.5. Total bili 8.3, AST 364, ALT 120, alk phos 152. Creatine kinase is 697, albumin is 3.4. IMPRESSION: 1. Chronic kidney disease secondary to chronic tubular injury, the possibility of hepatorenal syndrome is always a concern. 2. Hyponatremia secondary to fluid overload from her ascites brought about by liver cirrhosis. 3. Hypotension secondary to decrease in effective circulating volume secondary to large volume paracentesis. 4. Chronic liver disease secondary to alcohol cirrhosis, possibly also contribution from fatty liver. 5. Anemia of chronic disease. 6. 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 7. Severe malnutrition. 8. Complicated urinary tract infection. PLAN: 1. Gentle diaphoresis for now. 2. Urine spot sodium. 3. Urine microalbumin to creatinine ratio. 4. Renal ultrasound. 5. Administer albumin to support extravascular volume. 6. Consider diuretics once BP is more stable. JOB# [id number]
[2016-12-01 06:14] LABS: % EOSINOPHILS 1.5 % (0.0-5.0); % LYMPHOCYTES 14.4 % (20.0-50.0); % MONOCYTES 10.3 % (2.0-10.0); % NEUTROPHILS 73.8 % (40.0-80.0); HEMATOCRIT 28.7 % (35.0-45.0); HEMOGLOBIN 10.2 gm/dL (11.7-15.5); MEAN CORPUSCULAR HEMOGLOBIN 39.5 pg (27.0-31.0); MEAN CORPUSCULAR HGB CONC 35.6 pg (28.0-36.0); MEAN PLATELET VOLUME 7.6 fl; NEUTROPHILE ABSOLUTE 8.9 Th/cmm (1.8-8.0); PLATELET COUNT 97 Th/cmm (150-400); RED BLOOD COUNT 2.59 Mil/cmm (3.80-5.10); RED CELL DISTRIBUTION WIDTH 15.5 % (11.5-20.0)
[2016-12-01 06:22] LABS: INR 1.89 (0.5-1.4); PROTHROMBIN TIME (TEST) 20.3 SECONDS (9.5-11.5)
[2016-12-01 06:24] LABS: ALB/GLOB RATIO 1.3 (1.0-1.8); ALKALINE PHOSPHATASE 189 U/L (34-104); ANION GAP 8.9 (7.0-16.0); BILIRUBIN,TOTAL 10.6 mg/dL (0.3-1.0); BUN - UREA NITROGEN 34 mg/dL (7-25); BUN/CREATININE RATIO 30.9; CALCIUM SERUM 8.6 mg/dL (8.6-10.3); CARBON DIOXIDE 29.7 mEq/L (21.0-31.0); CHLORIDE 97 mEq/L (98-107); CREATININE - SERUM 1.1 mg/dL (0.6-1.2); GLUCOSE 134 mg/dL (70-105); PHOSPHOROUS 1.1 mg/dL (2.5-5.0); POTASSIUM SERUM 3.6 mEq/L (3.5-5.1); SGOT 194 U/L (13-39); SGPT/ALT 113 U/L (7-52); SODIUM SERUM 132 mEq/L (136-145)
[2016-12-01 06:37] LABS: WHITE BLOOD COUNT 12.3 Th/cmm (4.8-10.8)
[2016-12-01] MEDS: Levofloxacin 250 mg/50 mL Premix Bag IV SCH (08:26)
--- NOTE | 2016-12-01 08:32 | Diagnostic Imaging Report ---
Renal ultrasound HISTORY: Renal failure. COMPARISON: Ultrasound abdomen performed 11/29/2016 Technique: Sonography of the kidneys and urinary bladder was performed in multiple planes. FINDINGS: Exam is limited due to patient's medical condition. The right kidney measures 11.3 x 4.5 cm. The left kidney was not well-visualized due to bowel gas. Ascites is noted. There is suboptimal evaluation of the urinary bladder with soft tissue density seen along the urinary bladder margins. The patient's Merchant catheter appears to be just proximal to the urethra. Ascites is noted. IMPRESSION: Nonvisualization of the left kidney. No evidence of hydronephrosis of the right kidney. Suboptimal evaluation of the urinary bladder. Patient's Merchant catheter appears to be just proximal to the urethra however this is difficult to assess on this exam. Soft tissue density is also seen along the urinary bladder wall region which may represent the uterus, or bowel loops, or possibly a mass lesion. An intrinsic bladder mass lesion cannot be excluded. Clinical correlation and follow-up is recommended. Ascites If indicated short-term follow-up CT exam may also be obtained.
--- NOTE | 2016-12-01 08:49 | General Progress Note ---
Subjective - Review of Systems Service Date: 12/01/16 Subjective: 61 year old female who presents with chronic liver cirrhosis. Patient is feeling much better. less generalized weakness and fatigue. blood pressure better today. no nausea or vomiting. Objective - Results Result Diagrams: 12/01/16 05:25 12/01/16 05:25 Recent Labs: Laboratory Last Values WBC 12.3 Th/cmm (4.8-10.8) H 12/01/16 05:25 RBC 2.59 Mil/cmm (3.80-5.10) L 12/01/16 05:25 Hgb 10.2 gm/dL (11.7-15.5) L 12/01/16 05:25 Hct 28.7 % (35.0-45.0) L 12/01/16 05:25 MCV 111.0 fl (81-100) H 12/01/16 05:25 MCH 39.5 pg (27.0-31.0) H 12/01/16 05:25 MCHC Differential 35.6 pg (28.0-36.0) 12/01/16 05:25 RDW 15.5 % (11.5-20.0) 12/01/16 05:25 Plt Count 97 Th/cmm (150-400) L 12/01/16 05:25 MPV 7.6 fl 12/01/16 05:25 Neutrophils % 73.8 % (40.0-80.0) 12/01/16 05:25 Band Neutrophils % 4 % (0-10) 11/30/16 05:10 Lymphocytes % 14.4 % (20.0-50.0) L 12/01/16 05:25 Monocytes % 10.3 % (2.0-10.0) H 12/01/16 05:25 Eosinophils % 1.5 % (0.0-5.0) 12/01/16 05:25 Basophils % 0.0 % (0.0-2.0) 12/01/16 05:25 Neutrophils (Manual) 74 % (40-80) 11/30/16 05:10 Lymphocytes 14 % (20-50) L 11/30/16 05:10 Monocytes 8 % (2-10) 11/30/16 05:10 Nucleated RBCs 2.0 % (0-0) H 11/30/16 05:10 Toxic Granulation 1+ 11/30/16 05:10 Platelet Estimate SLIGHT DECREASED (NORMAL) 11/30/16 05:10 Platelet Morphology NORMAL (NORMAL) 11/29/16 05:52 Anisocytosis 1+ 11/29/16 05:52 Macrocytosis 1+ 11/30/16 05:10 Schistocytes 1+ 11/28/16 17:06 RBC Morph Micro Appear ABNORMAL (NORMAL) 11/30/16 05:10 Eos Smear Source URINE 11/29/16 17:10 Eos Smear Total Cells NONE SEEN (NONE SEEN) 11/29/16 17:10 Plt Count 97 Th/cmm (150-750) L 12/01/16 05:25 PT 20.3 SECONDS (9.5-11.5) H 12/01/16 05:25 INR 1.89 (0.5-1.4) H 12/01/16 05:25 PTT (Actin FS) 33.2 SECONDS (26.0-38.0) 12/01/16 05:25 Fibrinogen 195.0 mg/dL (200.0-400.0) L 12/01/16 05:25 D-Dimer 2230 ng/mL (100-400) H 12/01/16 05:25 Sodium 132 mEq/L (136-145) L 12/01/16 05:25 Potassium 3.6 mEq/L (3.5-5.1) 12/01/16 05:25 Chloride 97 mEq/L (98-107) L 12/01/16 05:25 Carbon Dioxide 29.7 mEq/L (21.0-31.0) 12/01/16 05:25 Anion Gap 8.9 (7.0-16.0) 12/01/16 05:25 BUN 34 mg/dL (7-25) H 12/01/16 05:25 Creatinine 1.1 mg/dL (0.6-1.2) 12/01/16 05:25 Est GFR ( Amer) > 60.0 ml/min (>90) 12/01/16 05:25 Est GFR (Non-Af Amer) 53.7 ml/min 12/01/16 05:25 BUN/Creatinine Ratio 30.9 12/01/16 05:25 Glucose 134 mg/dL (70-105) H 12/01/16 05:25 Whole Bld Lactic Acid 2.52 mmol/L (0.60-1.99) H* 11/28/16 19:12 Uric Acid 12.1 mg/dL (2.3-6.6) H 11/30/16 05:10 Calcium 8.6 mg/dL (8.6-10.3) 12/01/16 05:25 Phosphorus 1.1 mg/dL (2.5-5.0) L 12/01/16 05:25 Magnesium 2.0 mg/dL (1.9-2.7) 12/01/16 05:25 Total Bilirubin 10.6 mg/dL (0.3-1.0) H 12/01/16 05:25 AST 194 U/L (13-39) H 12/01/16 05:25 ALT 113 U/L (7-52) H 12/01/16 05:25 Alkaline Phosphatase 189 U/L (34-104) H 12/01/16 05:25 Ammonia 66 umol/L (16-53) H 11/30/16 16:03 Creatine Kinase 697 U/L (30-223) H 11/28/16 17:06 CK-MB (CK-2) 9.7 ng/mL (0.6-6.3) H 11/28/16 17:06 Total Protein 5.1 gm/dL (6.0-8.3) L 12/01/16 05:25 Albumin 2.9 gm/dL (3.7-5.3) L 12/01/16 05:25 Globulin 2.2 gm/dL 12/01/16 05:25 Albumin/Globulin Ratio 1.3 (1.0-1.8) 12/01/16 05:25 Urine Source CLEAN C 11/28/16 17:52 Urine Color YELLOW 11/28/16 17:52 Urine Clarity CLOUDY (CLEAR) H 11/28/16 17:52 Urine pH 5.5 (4.6 - 8.0) 11/28/16 17:52 Ur Specific [place] 1.025 (1.005-1.030) 11/28/16 17:52 Urine Protein 30 mg/dL (NEGATIVE) H 11/28/16 17:52 Urine Glucose (UA) NEGATIVE mg/dL (NEGATIVE) 09/09/17 17:52 Urine Ketones 15 mg/dL (NEGATIVE) H 11/28/16 17:52 Urine Blood LARGE (NEGATIVE) H 11/28/16 17:52 Urine Nitrate NEGATIVE (NEGATIVE) 11/28/16 17:52 Urine Bilirubin MODERATE (NEGATIVE) H 11/28/16 17:52 Urine Urobilinogen 1.0 E.U./dL (0.2 - 1.0) 11/28/16 17:52 Ur Leukocyte Esterase MODERATE (NEGATIVE) H 11/28/16 17:52 Urine RBC 2-5 /hpf (0-5) 11/28/16 17:52 Urine WBC 50-100 /hpf (0-5) H 11/28/16 17:52 Ur Epithelial Cells MODERATE /lpf (FEW) 11/28/16 17:52 Urine Bacteria MODERATE /hpf (NONE SEEN) 11/28/16 17:52 Ur Random Sodium 8 mmol/L 11/29/16 17:10 Urine Creatinine 119.0 mg/dl (28.0-217.0) 11/29/16 17:10 Hepatitis A IgM Ab Negative (Negative) 11/29/16 05:52 Hep Bs Antigen Negative (Negative) 11/29/16 05:52 Hep B Core IgM Ab Negative (Negative) 11/29/16 05:52 Hepatitis C Antibody <0.1 s/co ratio (0.0-0.9) 11/29/16 05:52 - Physical Exam Vitals and I&O: Vital Signs Temp 98.1 F 12/01/16 08:00 Pulse 100 12/01/16 08:31 Resp 18 12/01/16 08:00 BP 111/56 12/01/16 08:31 Pulse Ox 98 12/01/16 08:00 Intake & Output 11/30/16 12/01/16 12/01/16 18:59 06:59 18:59 Intake Total 50 120 Output Total 100 Balance 50 20 Weight (lbs) 77.247 kg Intake: Intake, IV Amount 50 Levofloxacin 250mg/50mL 50 250 mg In 50 ml @ 50 mls/ hr IV Q24HR [facility] Rx#: [id number] Oral 120 Output: Urine 100 Active Medications: Current Medications Furosemide (Lasix) 40 mg PO DAILY [facility] Stop: 01/29/17 13:59 Last Admin: 12/01/16 08:31 Dose: 40 mg Levofloxacin (Levaquin Pb) 250 mg in 50 mls @ 50 mls/hr IV Q24HR [facility] Stop: 01/29/17 08:59 Last Admin: 12/01/16 08:26 Dose: 50 mls/hr Morphine Sulfate (Morphine) 1 mg IVP Q6H PRN PRN Reason: Pain (Moderate) Stop: 01/28/17 11:14 Spironolactone (Aldactone) 25 mg PO BID [facility] Stop: 01/29/17 16:59 Last Admin: 12/01/16 08:31 Dose: 25 mg General: Alert, Oriented x3, No acute distress HEENT: Atraumatic, PERRLA, EOMI Neck: Supple Cardiovascular: Regular rate, Normal S1, Normal S2 Lungs: Clear to auscultation Abdomen: Bowel sounds, Soft Extremities: no Clubbing, no Cyanosis, no Edema Assessment/Plan - Problem List Patient Problems: All Active Problems Acute on chronic alcoholic liver disease (Acute) K70.9 Anemia (Acute) D64.9 Chronic kidney disease (Acute) N18.9 Coagulopathy (Acute) Hypokalemia (Acute) E87.6 Sepsis (Acute) UTI (urinary tract infection) (Acute) - Assessment Assessment: Acute Alcoholic liver Cirrhosis ... GI consult. U/S Abd. hepatitis panel coagulopathy ... repeat PT/INR anemia ... repeat CBC sepsis ... ID consult hypokalemia ... add KCL to IVF, repeat CMP tomorrow anemia ... repeat CBC CKD ... repeat CMP. Nephrology consult with Dr. Jatinder GOTTLIEB ... IV Levofloxacin - Plan Plan: Acute Alcoholic liver Cirrhosis ... GI consult. U/S Abd. hepatitis panel coagulopathy ... repeat PT/INR anemia ... repeat CBC sepsis ... ID consult hypokalemia ... add KCL to IVF, repeat CMP tomorrow anemia ... repeat CBC CKD ... repeat CMP. Nephrology consult with Dr. Jatinder GOTTLIEB ... IV Levofloxacin Nutritional Asmnt/Malnutr-PDOC - Dietary Evaluation Malnutrition Findings (Please click <Entered> for more info): Nutritional Asmnt/Malnutrition Start: 11/30/16 15: 59 Text: Status: Complete Freq: Document 11/30/16 15:59 GSUN (Rec: 11/30/16 16:23 ELIZBAETH [email or web address]) Nutritional Asmnt/Malnutrition Patient General Information Nutritional Screening High Risk Screening Diagnosis Acute alcoholic liver cirrhosis, anemia, sepsis, CKD , UTI Pertinent Medical Hx/Surgical Hx Alcoholic liver cirrhosis Subjective Information 61 year old female. Pt was sitting upright, pleasant. Pt noted with 2+ pitting to lower extremities and abdomen ascities large. Provided nutrition education, pt was receptive. Mild fat muscle wasting to chest and shoudlers . Spoke to RN JUN Licea stated pt apparently had fluids pulled out from ascities prior to adm, currently appear to be accumulating. Discussed low sodium diet with JUN BARAHONA expressed to keep pt on regular diet for now due to low BP. Avg PO intake 0-25% of meals yesterday, pt did not eleborate, stated usualyl fair appetite. Current Diet Order/ Nutrition Support Regular Pertinent Medications Lasix, Levaquin, Magnesium Sulfate, Morphine Pertinent Labs 11/30: potassium 3.3L, BUN 41H, creaitnine 1.5H, glucose 132H , phosphorus 0.4L, AST 289H, ALT 125H, alkaline phosphatase 181H Nutritional Hx/Data Height 1.6 m Height (Calculated Centimeters) 160.0 Current Weight (lbs) 76.793 kg Weight (Calculated Kilograms) 76.8 Weight (Calculated Grams) 74880.2 [place] Body Weight 115 GI Symptoms Cultural/Ethnic/Sabianist Belief Pt eats out a lot due to kitchen currently preoccupied by mother's passing. Pt is aware and mindful that outside foods may be high in sodium. Skin Integrity/Comment: Nura 16. Abrasions to knees, rash to legs, skin tear right elbow. Current %PO Negligible < 25% Estimated Nutritional Goals Calories/Kcals/Kg IBW 115lb/52.3kg Kcals Calculated 1569-1831kcal (30-35kcal/kg) Protein Calculated 52-73g (1-1.4g/kg) Fluid: ml per MD Nutritional Problem 3. Problem Problem Impaired nutrient utilization related to Etiology CKD aeb Signs/Symptoms: 11/30: BUN 41H, creatinine 1.5H 2. Problem Problem Inadequate PO intake related to Etiology unknown aeb Signs/Symptoms: 0-25% of meals on 11/29 1. Problem Problem Altered GI function related to Etiology liver cirrhosis aeb Signs/Symptoms: ascities, edema fluid retention Malnutrition Alert Body Fat Depletion (Non-Severe) Mild Depletion Muscle Mass (Non-Severe) Mild Depletion Intervention/Recommendation Comments 1. Recommend low sodium diet, when BP stabilizes, to aid in liver cirrhosis, fluid retention, CKD. Discussed with RN Anuja RN expressed to keep regular diet for now due to low BP. 2. Provided nutrition education on alcohol vs malnutrition, low sodium vs fluid retention. Pt understood and was receptive. 3. PO intake inadequate yesterday. Write explained importance of nutrition especially likeliness of chronic malnutrition. Pt agreed and motivated. Expected Outcomes/Goals Expected Outcomes/Goals 1. PO intake to meet at least 75% of esitmated nutritional needs.
--- NOTE | 2016-12-01 12:41 | Infectious Disease Prog Note ---
Infectious Disease Subjective - Review of Systems Service Date: 12/01/16 Subjective: No fever no chills. Still complains of generalized weakness. Infectious Disease Objective - Results Result Diagrams: 12/01/16 05:25 12/01/16 05:25 Recent Labs: Laboratory Last Values WBC 12.3 Th/cmm (4.8-10.8) H 12/01/16 05:25 RBC 2.59 Mil/cmm (3.80-5.10) L 12/01/16 05:25 Hgb 10.2 gm/dL (11.7-15.5) L 12/01/16 05:25 Hct 28.7 % (35.0-45.0) L 12/01/16 05:25 MCV 111.0 fl (81-100) H 12/01/16 05:25 MCH 39.5 pg (27.0-31.0) H 12/01/16 05:25 MCHC Differential 35.6 pg (28.0-36.0) 12/01/16 05:25 RDW 15.5 % (11.5-20.0) 12/01/16 05:25 Plt Count 97 Th/cmm (150-400) L 12/01/16 05:25 MPV 7.6 fl 12/01/16 05:25 Neutrophils % 73.8 % (40.0-80.0) 12/01/16 05:25 Band Neutrophils % 4 % (0-10) 11/30/16 05:10 Lymphocytes % 14.4 % (20.0-50.0) L 12/01/16 05:25 Monocytes % 10.3 % (2.0-10.0) H 12/01/16 05:25 Eosinophils % 1.5 % (0.0-5.0) 12/01/16 05:25 Basophils % 0.0 % (0.0-2.0) 12/01/16 05:25 Neutrophils (Manual) 74 % (40-80) 11/30/16 05:10 Lymphocytes 14 % (20-50) L 11/30/16 05:10 Monocytes 8 % (2-10) 11/30/16 05:10 Nucleated RBCs 2.0 % (0-0) H 11/30/16 05:10 Toxic Granulation 1+ 11/30/16 05:10 Platelet Estimate SLIGHT DECREASED (NORMAL) 11/30/16 05:10 Platelet Morphology NORMAL (NORMAL) 11/29/16 05:52 Anisocytosis 1+ 11/29/16 05:52 Macrocytosis 1+ 11/30/16 05:10 Schistocytes 1+ 11/28/16 17:06 RBC Morph Micro Appear ABNORMAL (NORMAL) 11/30/16 05:10 Eos Smear Source URINE 11/29/16 17:10 Eos Smear Total Cells NONE SEEN (NONE SEEN) 11/29/16 17:10 Plt Count 97 Th/cmm (150-750) L 12/01/16 05:25 PT 20.3 SECONDS (9.5-11.5) H 12/01/16 05:25 INR 1.89 (0.5-1.4) H 12/01/16 05:25 PTT (Actin FS) 33.2 SECONDS (26.0-38.0) 12/01/16 05:25 Fibrinogen 195.0 mg/dL (200.0-400.0) L 12/01/16 05:25 D-Dimer 2230 ng/mL (100-400) H 12/01/16 05:25 Sodium 132 mEq/L (136-145) L 12/01/16 05:25 Potassium 3.6 mEq/L (3.5-5.1) 12/01/16 05:25 Chloride 97 mEq/L (98-107) L 12/01/16 05:25 Carbon Dioxide 29.7 mEq/L (21.0-31.0) 12/01/16 05:25 Anion Gap 8.9 (7.0-16.0) 12/01/16 05:25 BUN 34 mg/dL (7-25) H 12/01/16 05:25 Creatinine 1.1 mg/dL (0.6-1.2) 12/01/16 05:25 Est GFR ( Amer) > 60.0 ml/min (>90) 12/01/16 05:25 Est GFR (Non-Af Amer) 53.7 ml/min 12/01/16 05:25 BUN/Creatinine Ratio 30.9 12/01/16 05:25 Glucose 134 mg/dL (70-105) H 12/01/16 05:25 Whole Bld Lactic Acid 2.52 mmol/L (0.60-1.99) H* 11/28/16 19:12 Uric Acid 12.1 mg/dL (2.3-6.6) H 11/30/16 05:10 Calcium 8.6 mg/dL (8.6-10.3) 12/01/16 05:25 Phosphorus 1.1 mg/dL (2.5-5.0) L 12/01/16 05:25 Magnesium 2.0 mg/dL (1.9-2.7) 12/01/16 05:25 Total Bilirubin 10.6 mg/dL (0.3-1.0) H 12/01/16 05:25 AST 194 U/L (13-39) H 12/01/16 05:25 ALT 113 U/L (7-52) H 12/01/16 05:25 Alkaline Phosphatase 189 U/L (34-104) H 12/01/16 05:25 Ammonia 66 umol/L (16-53) H 11/30/16 16:03 Creatine Kinase 697 U/L (30-223) H 11/28/16 17:06 CK-MB (CK-2) 9.7 ng/mL (0.6-6.3) H 11/28/16 17:06 Total Protein 5.1 gm/dL (6.0-8.3) L 12/01/16 05:25 Albumin 2.9 gm/dL (3.7-5.3) L 12/01/16 05:25 Globulin 2.2 gm/dL 12/01/16 05:25 Albumin/Globulin Ratio 1.3 (1.0-1.8) 12/01/16 05:25 Tumor Marker AFP 5.6 ng/mL (0.0-8.3) 11/30/16 16:03 Urine Source CLEAN C 11/28/16 17:52 Urine Color YELLOW 11/28/16 17:52 Urine Clarity CLOUDY (CLEAR) H 11/28/16 17:52 Urine pH 5.5 (4.6 - 8.0) 11/28/16 17:52 Ur Specific [place] 1.025 (1.005-1.030) 11/28/16 17:52 Urine Protein 30 mg/dL (NEGATIVE) H 11/28/16 17:52 Urine Glucose (UA) NEGATIVE mg/dL (NEGATIVE) 11/28/16 17:52 Urine Ketones 15 mg/dL (NEGATIVE) H 11/28/16 17:52 Urine Blood LARGE (NEGATIVE) H 11/28/16 17:52 Urine Nitrate NEGATIVE (NEGATIVE) 11/28/16 17:52 Urine Bilirubin MODERATE (NEGATIVE) H 11/28/16 17:52 Urine Urobilinogen 1.0 E.U./dL (0.2 - 1.0) 11/28/16 17:52 Ur Leukocyte Esterase MODERATE (NEGATIVE) H 11/28/16 17:52 Urine RBC 2-5 /hpf (0-5) 11/28/16 17:52 Urine WBC 50-100 /hpf (0-5) H 11/28/16 17:52 Ur Epithelial Cells MODERATE /lpf (FEW) 11/28/16 17:52 Urine Bacteria MODERATE /hpf (NONE SEEN) 11/28/16 17:52 Ur Random Sodium 8 mmol/L 11/29/16 17:10 Urine Creatinine 119.0 mg/dl (28.0-217.0) 11/29/16 17:10 Hepatitis A IgM Ab Negative (Negative) 11/29/16 05:52 Hep Bs Antigen Negative (Negative) 11/29/16 05:52 Hep B Core IgM Ab Negative (Negative) 11/29/16 05:52 Hepatitis C Antibody <0.1 s/co ratio (0.0-0.9) 11/29/16 05:52 - Physical Exam Vitals and I&O: Vital Signs Temp 98.1 F 12/01/16 08:00 Pulse 100 12/01/16 08:31 Resp 19 12/01/16 08:00 BP 111/56 12/01/16 08:31 Pulse Ox 98 12/01/16 08:00 Intake & Output 11/30/16 12/01/16 12/01/16 18:59 06:59 18:59 Intake Total 50 120 50 Output Total 100 Balance 50 20 50 Weight (lbs) 77.247 kg Intake: Intake, IV Amount 50 50 Levofloxacin 250mg/50mL 50 50 250 mg In 50 ml @ 50 mls/ hr IV Q24HR [facility] Rx#: [id number] Oral 120 Output: Urine 100 Active Medications: Current Medications Furosemide (Lasix) 40 mg PO DAILY [facility] Stop: 01/29/17 13:59 Last Admin: 12/01/16 08:31 Dose: 40 mg Levofloxacin (Levaquin Pb) 250 mg in 50 mls @ 50 mls/hr IV Q24HR [facility] Stop: 01/29/17 08:59 Last Infusion: 12/01/16 09:26 Dose: Infused Morphine Sulfate (Morphine) 1 mg IVP Q6H PRN PRN Reason: Pain (Moderate) Stop: 01/28/17 11:14 Spironolactone (Aldactone) 25 mg PO BID [facility] Stop: 01/29/17 16:59 Last Admin: 12/01/16 08:31 Dose: 25 mg General: no acute distress, cachectic HEENT: atraumatic, normocephalic, PERRLA, EOMI Neck: supple, no thyromegaly, no lymphadenopathy Cardiovascular: S1S2, regular Lungs: clear to auscultation bilaterally, clear to percussion Abdomen: soft, distended, bowel sounds, no tender Extremities: edema, no cyanosis, no clubbing Neurological: awake, alert, oriented Skin: intact Infectious Disease Assmt/Plan - Problem List Patient Problems: All Active Problems Acute on chronic alcoholic liver disease (Acute) K70.9 Anemia (Acute) D64.9 Chronic kidney disease (Acute) N18.9 Coagulopathy (Acute) Hypokalemia (Acute) E87.6 Sepsis (Acute) UTI (urinary tract infection) (Acute) - Assessment Assessment: 1. UTI. Escherichia coli. 2. Thrombocytopenia. 3. Coagulopathy secondary to liver disease. 4. History is liver disease. 5. Jaundice. 6. Anemia, rule out GI bleed. 7. Alcohol abuse. 8. Escherichia coli infection. - Plan Plan: Continue Levaquin for 10 days. Nutritional Asmnt/Malnutr-PDOC - Dietary Evaluation Malnutrition Findings (Please click <Entered> for more info): Nutritional Asmnt/Malnutrition Start: 11/30/16 15: 59 Text: Status: Complete Freq: Document 11/30/16 15:59 GSUN (Rec: 11/30/16 16:23 GSUN [email or web address]) Nutritional Asmnt/Malnutrition Patient General Information Nutritional Screening High Risk Screening Diagnosis Acute alcoholic liver cirrhosis, anemia, sepsis, CKD , UTI Pertinent Medical Hx/Surgical Hx Alcoholic liver cirrhosis Subjective Information 61 year old female. Pt was sitting upright, pleasant. Pt noted with 2+ pitting to lower extremities and abdomen ascities large. Provided nutrition education, pt was receptive. Mild fat muscle wasting to chest and shoudlers . Spoke to JUN Licea RN stated pt apparently had fluids pulled out from ascities prior to adm, currently appear to be accumulating. Discussed low sodium diet with JUN BARAHONA expressed to keep pt on regular diet for now due to low BP. Avg PO intake 0-25% of meals yesterday, pt did not eleborate, stated usualyl fair appetite. Current Diet Order/ Nutrition Support Regular Pertinent Medications Lasix, Levaquin, Magnesium Sulfate, Morphine Pertinent Labs 11/30: potassium 3.3L, BUN 41H, creaitnine 1.5H, glucose 132H , phosphorus 0.4L, AST 289H, ALT 125H, alkaline phosphatase 181H Nutritional Hx/Data Height 1.6 m Height (Calculated Centimeters) 160.0 Current Weight (lbs) 76.793 kg Weight (Calculated Kilograms) 76.8 Weight (Calculated Grams) 99992.2 [place] Body Weight 115 GI Symptoms Cultural/Ethnic/Yazidi Belief Pt eats out a lot due to kitchen currently preoccupied by mother's passing. Pt is aware and mindful that outside foods may be high in sodium. Skin Integrity/Comment: Nura 16. Abrasions to knees, rash to legs, skin tear right elbow. Current %PO Negligible < 25% Estimated Nutritional Goals Calories/Kcals/Kg IBW 115lb/52.3kg Kcals Calculated 1569-1831kcal (30-35kcal/kg) Protein Calculated 52-73g (1-1.4g/kg) Fluid: ml per MD Nutritional Problem 3. Problem Problem Impaired nutrient utilization related to Etiology CKD aeb Signs/Symptoms: 11/30: BUN 41H, creatinine 1.5H 2. Problem Problem Inadequate PO intake related to Etiology unknown aeb Signs/Symptoms: 0-25% of meals on 11/29 1. Problem Problem Altered GI function related to Etiology liver cirrhosis aeb Signs/Symptoms: ascities, edema fluid retention Malnutrition Alert Body Fat Depletion (Non-Severe) Mild Depletion Muscle Mass (Non-Severe) Mild Depletion Intervention/Recommendation Comments 1. Recommend low sodium diet, when BP stabilizes, to aid in liver cirrhosis, fluid retention, CKD. Discussed with JUN Licea RN expressed to keep regular diet for now due to low BP. 2. Provided nutrition education on alcohol vs malnutrition, low sodium vs fluid retention. Pt understood and was receptive. 3. PO intake inadequate yesterday. Write explained importance of nutrition especially likeliness of chronic malnutrition. Pt agreed and motivated. Expected Outcomes/Goals Expected Outcomes/Goals 1. PO intake to meet at least 75% of esitmated nutritional needs.
--- NOTE | 2016-12-01 14:05 | GI Progress Note ---
Subjective - Review of Systems Service Date: 12/01/16 Subjective: Pt reports feeling fatigued, no abd pain. She is urinating frequently Objective - Results Result Diagrams: 12/01/16 05:25 12/01/16 05:25 Recent Labs: Laboratory Last Values WBC 12.3 Th/cmm (4.8-10.8) H 12/01/16 05:25 RBC 2.59 Mil/cmm (3.80-5.10) L 12/01/16 05:25 Hgb 10.2 gm/dL (11.7-15.5) L 12/01/16 05:25 Hct 28.7 % (35.0-45.0) L 12/01/16 05:25 MCV 111.0 fl (81-100) H 12/01/16 05:25 MCH 39.5 pg (27.0-31.0) H 12/01/16 05:25 MCHC Differential 35.6 pg (28.0-36.0) 12/01/16 05:25 RDW 15.5 % (11.5-20.0) 12/01/16 05:25 Plt Count 97 Th/cmm (150-400) L 12/01/16 05:25 MPV 7.6 fl 12/01/16 05:25 Neutrophils % 73.8 % (40.0-80.0) 12/01/16 05:25 Band Neutrophils % 4 % (0-10) 11/30/16 05:10 Lymphocytes % 14.4 % (20.0-50.0) L 12/01/16 05:25 Monocytes % 10.3 % (2.0-10.0) H 12/01/16 05:25 Eosinophils % 1.5 % (0.0-5.0) 12/01/16 05:25 Basophils % 0.0 % (0.0-2.0) 12/01/16 05:25 Neutrophils (Manual) 74 % (40-80) 11/30/16 05:10 Lymphocytes 14 % (20-50) L 11/30/16 05:10 Monocytes 8 % (2-10) 11/30/16 05:10 Nucleated RBCs 2.0 % (0-0) H 11/30/16 05:10 Toxic Granulation 1+ 11/30/16 05:10 Platelet Estimate SLIGHT DECREASED (NORMAL) 11/30/16 05:10 Platelet Morphology NORMAL (NORMAL) 11/29/16 05:52 Anisocytosis 1+ 11/29/16 05:52 Macrocytosis 1+ 11/30/16 05:10 Schistocytes 1+ 11/28/16 17:06 RBC Morph Micro Appear ABNORMAL (NORMAL) 11/30/16 05:10 Eos Smear Source URINE 11/29/16 17:10 Eos Smear Total Cells NONE SEEN (NONE SEEN) 11/29/16 17:10 Plt Count 97 Th/cmm (150-750) L 12/01/16 05:25 PT 20.3 SECONDS (9.5-11.5) H 12/01/16 05:25 INR 1.89 (0.5-1.4) H 12/01/16 05:25 PTT (Actin FS) 33.2 SECONDS (26.0-38.0) 12/01/16 05:25 Fibrinogen 195.0 mg/dL (200.0-400.0) L 12/01/16 05:25 D-Dimer 2230 ng/mL (100-400) H 12/01/16 05:25 Sodium 132 mEq/L (136-145) L 12/01/16 05:25 Potassium 3.6 mEq/L (3.5-5.1) 12/01/16 05:25 Chloride 97 mEq/L (98-107) L 12/01/16 05:25 Carbon Dioxide 29.7 mEq/L (21.0-31.0) 12/01/16 05:25 Anion Gap 8.9 (7.0-16.0) 12/01/16 05:25 BUN 34 mg/dL (7-25) H 12/01/16 05:25 Creatinine 1.1 mg/dL (0.6-1.2) 12/01/16 05:25 Est GFR ( Amer) > 60.0 ml/min (>90) 12/01/16 05:25 Est GFR (Non-Af Amer) 53.7 ml/min 12/01/16 05:25 BUN/Creatinine Ratio 30.9 12/01/16 05:25 Glucose 134 mg/dL (70-105) H 12/01/16 05:25 Whole Bld Lactic Acid 2.52 mmol/L (0.60-1.99) H* 11/28/16 19:12 Uric Acid 12.1 mg/dL (2.3-6.6) H 11/30/16 05:10 Calcium 8.6 mg/dL (8.6-10.3) 12/01/16 05:25 Phosphorus 1.1 mg/dL (2.5-5.0) L 12/01/16 05:25 Magnesium 2.0 mg/dL (1.9-2.7) 12/01/16 05:25 Total Bilirubin 10.6 mg/dL (0.3-1.0) H 12/01/16 05:25 AST 194 U/L (13-39) H 12/01/16 05:25 ALT 113 U/L (7-52) H 12/01/16 05:25 Alkaline Phosphatase 189 U/L (34-104) H 12/01/16 05:25 Ammonia 66 umol/L (16-53) H 11/30/16 16:03 Creatine Kinase 697 U/L (30-223) H 11/28/16 17:06 CK-MB (CK-2) 9.7 ng/mL (0.6-6.3) H 11/28/16 17:06 Total Protein 5.1 gm/dL (6.0-8.3) L 12/01/16 05:25 Albumin 2.9 gm/dL (3.7-5.3) L 12/01/16 05:25 Globulin 2.2 gm/dL 12/01/16 05:25 Albumin/Globulin Ratio 1.3 (1.0-1.8) 12/01/16 05:25 Tumor Marker AFP 5.6 ng/mL (0.0-8.3) 11/30/16 16:03 Urine Source CLEAN C 11/28/16 17:52 Urine Color YELLOW 11/28/16 17:52 Urine Clarity CLOUDY (CLEAR) H 11/28/16 17:52 Urine pH 5.5 (4.6 - 8.0) 11/28/16 17:52 Ur Specific [place] 1.025 (1.005-1.030) 11/28/16 17:52 Urine Protein 30 mg/dL (NEGATIVE) H 11/28/16 17:52 Urine Glucose (UA) NEGATIVE mg/dL (NEGATIVE) 11/28/16 17:52 Urine Ketones 15 mg/dL (NEGATIVE) H 11/28/16 17:52 Urine Blood LARGE (NEGATIVE) H 11/28/16 17:52 Urine Nitrate NEGATIVE (NEGATIVE) 11/28/16 17:52 Urine Bilirubin MODERATE (NEGATIVE) H 11/28/16 17:52 Urine Urobilinogen 1.0 E.U./dL (0.2 - 1.0) 11/28/16 17:52 Ur Leukocyte Esterase MODERATE (NEGATIVE) H 11/28/16 17:52 Urine RBC 2-5 /hpf (0-5) 11/28/16 17:52 Urine WBC 50-100 /hpf (0-5) H 11/28/16 17:52 Ur Epithelial Cells MODERATE /lpf (FEW) 11/28/16 17:52 Urine Bacteria MODERATE /hpf (NONE SEEN) 11/28/16 17:52 Ur Random Sodium 8 mmol/L 11/29/16 17:10 Urine Creatinine 119.0 mg/dl (28.0-217.0) 11/29/16 17:10 Hepatitis A IgM Ab Negative (Negative) 11/29/16 05:52 Hep Bs Antigen Negative (Negative) 11/29/16 05:52 Hep B Core IgM Ab Negative (Negative) 11/29/16 05:52 Hepatitis C Antibody <0.1 s/co ratio (0.0-0.9) 11/29/16 05:52 - Physical Exam Vitals and I&O: Vital Signs Temp 98.1 F 12/01/16 08:00 Pulse 100 12/01/16 08:31 Resp 19 12/01/16 08:00 BP 111/56 12/01/16 08:31 Pulse Ox 98 12/01/16 08:00 Intake & Output 11/30/16 12/01/16 12/01/16 18:59 06:59 18:59 Intake Total 50 120 50 Output Total 100 Balance 50 20 50 Weight (lbs) 77.247 kg Intake: Intake, IV Amount 50 50 Levofloxacin 250mg/50mL 50 50 250 mg In 50 ml @ 50 mls/ hr IV Q24HR [facility] Rx#: [id number] Oral 120 Output: Urine 100 Active Medications: Current Medications Furosemide (Lasix) 40 mg PO DAILY [facility] Stop: 01/29/17 13:59 Last Admin: 12/01/16 08:31 Dose: 40 mg Levofloxacin (Levaquin Pb) 250 mg in 50 mls @ 50 mls/hr IV Q24HR [facility] Stop: 01/29/17 08:59 Last Infusion: 12/01/16 09:26 Dose: Infused Morphine Sulfate (Morphine) 1 mg IVP Q6H PRN PRN Reason: Pain (Moderate) Stop: 01/28/17 11:14 Spironolactone (Aldactone) 50 mg PO BID [facility] Stop: 01/29/17 16:59 General: Alert, Oriented x3, No acute distress HEENT: Atraumatic, PERRLA, EOMI, Other (scleral icterus) Neck: Supple Cardiovascular: Regular rate, Normal S1, Normal S2 Lungs: Clear to auscultation Abdomen: Bowel sounds, Soft, Hepatomegaly, Distended Extremities: no Clubbing, no Cyanosis, no Edema Assessment/Plan - Problem List Patient Problems: All Active Problems Acute on chronic alcoholic liver disease (Acute) K70.9 Anemia (Acute) D64.9 Chronic kidney disease (Acute) N18.9 Coagulopathy (Acute) Hypokalemia (Acute) E87.6 Sepsis (Acute) UTI (urinary tract infection) (Acute) - Assessment Assessment: # Alcoholic hepatitis # Likely underlying cirrhosis decompnesated by ascites # UTI on abx Alc hep with discriminant function at 51. However, pt has concurrent UTI on abx therapy, and her LFTs are improving. Thus, will not use prednisilone now. Instead, will start trental 400mg tid for 28 days. Pt has ascites, and had 9L removed at [facility] last week. Will order another US and paracentesis here given reaccumulation. Will also increase aldactone to 100mg and keep lasix at 40mg daily for optimal diuretic ratio. Pt will need albumin given if more than 5L removed at time of paracentesis Pt will need underlying cirrhosis evaluation and EGD, although this can be done after she abstains from EtOH for extended period of time, likely outpt Plan: - US and paracentesis. Albumin if >5L is taken off - aldactone 100mg and lasix 40mg po, increase as electrolytes and Cr allow - trental 400mg tid for 28 days - abstain from all EtOH
[2016-12-01] MEDS ORDERED: Probiotic Screen MC PRN (16:45)
--- NOTE | 2016-12-01 17:51 | General Progress Note ---
Subjective - Review of Systems Service Date: 12/01/16 Subjective: still w/ abd discomfort Objective - Results Result Diagrams: 12/01/16 05:25 12/01/16 05:25 Recent Labs: Laboratory Last Values WBC 12.3 Th/cmm (4.8-10.8) H 12/01/16 05:25 RBC 2.59 Mil/cmm (3.80-5.10) L 12/01/16 05:25 Hgb 10.2 gm/dL (11.7-15.5) L 12/01/16 05:25 Hct 28.7 % (35.0-45.0) L 12/01/16 05:25 MCV 111.0 fl (81-100) H 12/01/16 05:25 MCH 39.5 pg (27.0-31.0) H 12/01/16 05:25 MCHC Differential 35.6 pg (28.0-36.0) 12/01/16 05:25 RDW 15.5 % (11.5-20.0) 12/01/16 05:25 Plt Count 97 Th/cmm (150-400) L 12/01/16 05:25 MPV 7.6 fl 12/01/16 05:25 Neutrophils % 73.8 % (40.0-80.0) 12/01/16 05:25 Band Neutrophils % 4 % (0-10) 11/30/16 05:10 Lymphocytes % 14.4 % (20.0-50.0) L 12/01/16 05:25 Monocytes % 10.3 % (2.0-10.0) H 12/01/16 05:25 Eosinophils % 1.5 % (0.0-5.0) 12/01/16 05:25 Basophils % 0.0 % (0.0-2.0) 12/01/16 05:25 Neutrophils (Manual) 74 % (40-80) 11/30/16 05:10 Lymphocytes 14 % (20-50) L 11/30/16 05:10 Monocytes 8 % (2-10) 11/30/16 05:10 Nucleated RBCs 2.0 % (0-0) H 11/30/16 05:10 Toxic Granulation 1+ 11/30/16 05:10 Platelet Estimate SLIGHT DECREASED (NORMAL) 11/30/16 05:10 Platelet Morphology NORMAL (NORMAL) 11/29/16 05:52 Anisocytosis 1+ 11/29/16 05:52 Macrocytosis 1+ 11/30/16 05:10 Schistocytes 1+ 11/28/16 17:06 RBC Morph Micro Appear ABNORMAL (NORMAL) 11/30/16 05:10 Eos Smear Source URINE 11/29/16 17:10 Eos Smear Total Cells NONE SEEN (NONE SEEN) 11/29/16 17:10 Plt Count 97 Th/cmm (150-750) L 12/01/16 05:25 PT 20.3 SECONDS (9.5-11.5) H 12/01/16 05:25 INR 1.89 (0.5-1.4) H 12/01/16 05:25 PTT (Actin FS) 33.2 SECONDS (26.0-38.0) 12/01/16 05:25 Fibrinogen 195.0 mg/dL (200.0-400.0) L 12/01/16 05:25 D-Dimer 2230 ng/mL (100-400) H 12/01/16 05:25 Sodium 132 mEq/L (136-145) L 12/01/16 05:25 Potassium 3.6 mEq/L (3.5-5.1) 12/01/16 05:25 Chloride 97 mEq/L (98-107) L 12/01/16 05:25 Carbon Dioxide 29.7 mEq/L (21.0-31.0) 12/01/16 05:25 Anion Gap 8.9 (7.0-16.0) 12/01/16 05:25 BUN 34 mg/dL (7-25) H 12/01/16 05:25 Creatinine 1.1 mg/dL (0.6-1.2) 12/01/16 05:25 Est GFR ( Amer) > 60.0 ml/min (>90) 12/01/16 05:25 Est GFR (Non-Af Amer) 53.7 ml/min 12/01/16 05:25 BUN/Creatinine Ratio 30.9 12/01/16 05:25 Glucose 134 mg/dL (70-105) H 12/01/16 05:25 Whole Bld Lactic Acid 2.52 mmol/L (0.60-1.99) H* 11/28/16 19:12 Uric Acid 12.1 mg/dL (2.3-6.6) H 11/30/16 05:10 Calcium 8.6 mg/dL (8.6-10.3) 12/01/16 05:25 Phosphorus 1.1 mg/dL (2.5-5.0) L 12/01/16 05:25 Magnesium 2.0 mg/dL (1.9-2.7) 12/01/16 05:25 Total Bilirubin 10.6 mg/dL (0.3-1.0) H 12/01/16 05:25 AST 194 U/L (13-39) H 12/01/16 05:25 ALT 113 U/L (7-52) H 12/01/16 05:25 Alkaline Phosphatase 189 U/L (34-104) H 12/01/16 05:25 Ammonia 66 umol/L (16-53) H 11/30/16 16:03 Creatine Kinase 697 U/L (30-223) H 11/28/16 17:06 CK-MB (CK-2) 9.7 ng/mL (0.6-6.3) H 11/28/16 17:06 Total Protein 5.1 gm/dL (6.0-8.3) L 12/01/16 05:25 Albumin 2.9 gm/dL (3.7-5.3) L 12/01/16 05:25 Globulin 2.2 gm/dL 12/01/16 05:25 Albumin/Globulin Ratio 1.3 (1.0-1.8) 12/01/16 05:25 Tumor Marker AFP 5.6 ng/mL (0.0-8.3) 11/30/16 16:03 Urine Source CLEAN C 11/28/16 17:52 Urine Color YELLOW 11/28/16 17:52 Urine Clarity CLOUDY (CLEAR) H 11/28/16 17:52 Urine pH 5.5 (4.6 - 8.0) 11/28/16 17:52 Ur Specific [place] 1.025 (1.005-1.030) 11/28/16 17:52 Urine Protein 30 mg/dL (NEGATIVE) H 11/28/16 17:52 Urine Glucose (UA) NEGATIVE mg/dL (NEGATIVE) 11/28/16 17:52 Urine Ketones 15 mg/dL (NEGATIVE) H 11/28/16 17:52 Urine Blood LARGE (NEGATIVE) H 11/28/16 17:52 Urine Nitrate NEGATIVE (NEGATIVE) 11/28/16 17:52 Urine Bilirubin MODERATE (NEGATIVE) H 11/28/16 17:52 Urine Urobilinogen 1.0 E.U./dL (0.2 - 1.0) 11/28/16 17:52 Ur Leukocyte Esterase MODERATE (NEGATIVE) H 11/28/16 17:52 Urine RBC 2-5 /hpf (0-5) 11/28/16 17:52 Urine WBC 50-100 /hpf (0-5) H 11/28/16 17:52 Ur Epithelial Cells MODERATE /lpf (FEW) 11/28/16 17:52 Urine Bacteria MODERATE /hpf (NONE SEEN) 11/28/16 17:52 Ur Random Sodium 8 mmol/L 11/29/16 17:10 Urine Creatinine 119.0 mg/dl (28.0-217.0) 11/29/16 17:10 Hepatitis A IgM Ab Negative (Negative) 11/29/16 05:52 Hep Bs Antigen Negative (Negative) 11/29/16 05:52 Hep B Core IgM Ab Negative (Negative) 11/29/16 05:52 Hepatitis C Antibody <0.1 s/co ratio (0.0-0.9) 11/29/16 05:52 - Physical Exam Vitals and I&O: Vital Signs Temp 97.8 F 12/01/16 16:00 Pulse 96 12/01/16 16:42 Resp 19 12/01/16 16:00 BP 104/70 12/01/16 16:42 Pulse Ox 96 12/01/16 16:00 Intake & Output 11/30/16 12/01/16 12/01/16 18:59 06:59 18:59 Intake Total 50 120 50 Output Total 100 Balance 50 20 50 Weight (lbs) 77.247 kg Intake: Intake, IV Amount 50 50 Levofloxacin 250mg/50mL 50 50 250 mg In 50 ml @ 50 mls/ hr IV Q24HR [facility] Rx#: [id number] Oral 120 Output: Urine 100 Active Medications: Current Medications Furosemide (Lasix) 40 mg PO DAILY [facility] Stop: 01/29/17 13:59 Last Admin: 12/01/16 08:31 Dose: 40 mg Levofloxacin (Levaquin Pb) 250 mg in 50 mls @ 50 mls/hr IV Q24HR [facility] Stop: 01/29/17 08:59 Last Infusion: 12/01/16 09:26 Dose: Infused Lactobacillus Rhamnosus (Culturelle) 1 each PO DAILY [facility] Stop: 01/31/17 08:59 Miscellaneous (Probiotic Screen) 1 ea MC PRN PRN PRN Reason: PROTOCOL Stop: 01/30/17 16:44 Morphine Sulfate (Morphine) 1 mg IVP Q6H PRN PRN Reason: Pain (Moderate) Stop: 01/28/17 11:14 Pentoxifylline (Trental) 400 mg PO TIDWM [facility] Stop: 01/30/17 16:59 Last Admin: 12/01/16 16:48 Dose: 400 mg Spironolactone (Aldactone) 50 mg PO BID [facility] Stop: 01/29/17 16:59 Last Admin: 12/01/16 16:42 Dose: 50 mg General: Alert, Oriented x3, No acute distress HEENT: Atraumatic, PERRLA, EOMI, Other (scleral icterus) Neck: Supple Cardiovascular: Regular rate, Normal S1, Normal S2 Lungs: Clear to auscultation Abdomen: Bowel sounds, Soft, Hepatomegaly, Distended Extremities: no Clubbing, no Cyanosis, no Edema Neurological: Sensation intact Skin: no Rash Psych/Mental Status: Mood NL Assessment/Plan - Problem List Patient Problems: All Active Problems Acute on chronic alcoholic liver disease (Acute) K70.9 Anemia (Acute) D64.9 Chronic kidney disease (Acute) N18.9 Coagulopathy (Acute) Hypokalemia (Acute) E87.6 Sepsis (Acute) UTI (urinary tract infection) (Acute) - Assessment Assessment: KATLIN on CKD r/o HRS Hypotension 2nd to decrease ECV Coagulopathy 2nd Liver ds., DIC CLD Alcohol Cirrhosis/ Fatty Liver Cx UTI Ascites Severe Malnutrition - Plan Plan: Lab - Result Diagrams 12/01/16 05:25 12/01/16 05:25 Current Medications Furosemide (Lasix) 40 mg PO DAILY [facility] Stop: 01/29/17 13:59 Last Admin: 12/01/16 08:31 Dose: 40 mg Levofloxacin (Levaquin Pb) 250 mg in 50 mls @ 50 mls/hr IV Q24HR [facility] Stop: 01/29/17 08:59 Last Infusion: 12/01/16 09:26 Dose: Infused Lactobacillus Rhamnosus (Culturelle) 1 each PO DAILY [facility] Stop: 01/31/17 08:59 Miscellaneous (Probiotic Screen) 1 ea MC PRN PRN PRN Reason: PROTOCOL Stop: 01/30/17 16:44 Morphine Sulfate (Morphine) 1 mg IVP Q6H PRN PRN Reason: Pain (Moderate) Stop: 01/28/17 11:14 Pentoxifylline (Trental) 400 mg PO TIDWM [facility] Stop: 01/30/17 16:59 Last Admin: 12/01/16 16:48 Dose: 400 mg Spironolactone (Aldactone) 50 mg PO BID [facility] Stop: 01/29/17 16:59 Last Admin: 12/01/16 16:42 Dose: 50 mg Continue diuretics for now due to ascites f/u electrolytes Kidney fnc improving Nutritional Asmnt/Malnutr-PDOC - Dietary Evaluation Malnutrition Findings (Please click <Entered> for more info): Nutritional Asmnt/Malnutrition Start: 11/30/16 15: 59 Text: Status: Complete Freq: Document 11/30/16 15:59 GSUN (Rec: 11/30/16 16:23 [id number] [id number]) Nutritional Asmnt/Malnutrition Patient General Information Nutritional Screening High Risk Screening Diagnosis Acute alcoholic liver cirrhosis, anemia, sepsis, CKD , UTI Pertinent Medical Hx/Surgical Hx Alcoholic liver cirrhosis Subjective Information 61 year old female. Pt was sitting upright, pleasant. Pt noted with 2+ pitting to lower extremities and abdomen ascities large. Provided nutrition education, pt was receptive. Mild fat muscle wasting to chest and shoudlers . Spoke to RN JUN Licea stated pt apparently had fluids pulled out from ascities prior to adm, currently appear to be accumulating. Discussed low sodium diet with RN RN expressed to keep pt on regular diet for now due to low BP. Avg PO intake 0-25% of meals yesterday, pt did not eleborate, stated usualyl fair appetite. Current Diet Order/ Nutrition Support Regular Pertinent Medications Lasix, Levaquin, Magnesium Sulfate, Morphine Pertinent Labs 11/30: potassium 3.3L, BUN 41H, creaitnine 1.5H, glucose 132H , phosphorus 0.4L, AST 289H, ALT 125H, alkaline phosphatase 181H Nutritional Hx/Data Height 1.6 m Height (Calculated Centimeters) 160.0 Current Weight (lbs) 76.793 kg Weight (Calculated Kilograms) 76.8 Weight (Calculated Grams) 71218.2 [place] Body Weight 115 GI Symptoms Cultural/Ethnic/Cheondoism Belief Pt eats out a lot due to kitchen currently preoccupied by mother's passing. Pt is aware and mindful that outside foods may be high in sodium. Skin Integrity/Comment: Nura 16. Abrasions to knees, rash to legs, skin tear right elbow. Current %PO Negligible < 25% Estimated Nutritional Goals Calories/Kcals/Kg IBW 115lb/52.3kg Kcals Calculated 1569-1831kcal (30-35kcal/kg) Protein Calculated 52-73g (1-1.4g/kg) Fluid: ml per MD Nutritional Problem 3. Problem Problem Impaired nutrient utilization related to Etiology CKD aeb Signs/Symptoms: 11/30: BUN 41H, creatinine 1.5H 2. Problem Problem Inadequate PO intake related to Etiology unknown aeb Signs/Symptoms: 0-25% of meals on 11/29 1. Problem Problem Altered GI function related to Etiology liver cirrhosis aeb Signs/Symptoms: ascities, edema fluid retention Malnutrition Alert Body Fat Depletion (Non-Severe) Mild Depletion Muscle Mass (Non-Severe) Mild Depletion Intervention/Recommendation Comments 1. Recommend low sodium diet, when BP stabilizes, to aid in liver cirrhosis, fluid retention, CKD. Discussed with RN Anuja RN expressed to keep regular diet for now due to low BP. 2. Provided nutrition education on alcohol vs malnutrition, low sodium vs fluid retention. Pt understood and was receptive. 3. PO intake inadequate yesterday. Write explained importance of nutrition especially likeliness of chronic malnutrition. Pt agreed and motivated. Expected Outcomes/Goals Expected Outcomes/Goals 1. PO intake to meet at least 75% of esitmated nutritional needs.
[2016-12-02 06:10] LABS: % BASOPHILS 0.1 % (0.0-2.0); % EOSINOPHILS 1.1 % (0.0-5.0); % LYMPHOCYTES 17.4 % (20.0-50.0); % MONOCYTES 11.7 % (2.0-10.0); % NEUTROPHILS 69.7 % (40.0-80.0); HEMATOCRIT 31.8 % (35.0-45.0); HEMOGLOBIN 11.2 gm/dL (11.7-15.5); MEAN CORPUSCULAR HEMOGLOBIN 39.4 pg (27.0-31.0); MEAN CORPUSCULAR HGB CONC 35.2 pg (28.0-36.0); NEUTROPHILE ABSOLUTE 10.6 Th/cmm (1.8-8.0); PLATELET COUNT 147 Th/cmm (150-400); RED BLOOD COUNT 2.84 Mil/cmm (3.80-5.10); RED CELL DISTRIBUTION WIDTH 15.7 % (11.5-20.0)
[2016-12-02 06:21] LABS: INR 1.87 (0.5-1.4); PROTHROMBIN TIME (TEST) 20.1 SECONDS (9.5-11.5)
[2016-12-02 06:27] LABS: WHITE BLOOD COUNT 15.3 Th/cmm (4.8-10.8)
[2016-12-02 06:40] LABS: ALB/GLOB RATIO 1.2 (1.0-1.8); ALKALINE PHOSPHATASE 212 U/L (34-104); ANION GAP 9.8 (7.0-16.0); BILIRUBIN,TOTAL 11.4 mg/dL (0.3-1.0); BUN - UREA NITROGEN 30 mg/dL (7-25); BUN/CREATININE RATIO 27.3; CALCIUM SERUM 8.7 mg/dL (8.6-10.3); CHLORIDE 95 mEq/L (98-107); CREATININE - SERUM 1.1 mg/dL (0.6-1.2); GLUCOSE 128 mg/dL (70-105); POTASSIUM SERUM 3.8 mEq/L (3.5-5.1); SGOT 159 U/L (13-39); SGPT/ALT 109 U/L (7-52); SODIUM SERUM 132 mEq/L (136-145)
--- NOTE | 2016-12-02 08:58 | General Progress Note ---
Subjective - Review of Systems Service Date: 12/02/16 Subjective: 61 year old female who presents with chronic liver cirrhosis. Patient is feeling much better. but complains of no bowel movement for the past few days. less generalized weakness and fatigue. blood pressure improved. no nausea or vomiting. Objective - Results Result Diagrams: 12/02/16 05:30 12/02/16 05:30 Recent Labs: Laboratory Last Values WBC 15.3 Th/cmm (4.8-10.8) H D 12/02/16 05:30 RBC 2.84 Mil/cmm (3.80-5.10) L 12/02/16 05:30 Hgb 11.2 gm/dL (11.7-15.5) L 12/02/16 05:30 Hct 31.8 % (35.0-45.0) L D 12/02/16 05:30 MCV 111.0 fl (81-100) H 12/01/16 05:25 MCH 39.4 pg (27.0-31.0) H 12/02/16 05:30 MCHC Differential 35.2 pg (28.0-36.0) 12/02/16 05:30 RDW 15.7 % (11.5-20.0) 12/02/16 05:30 Plt Count 147 Th/cmm (150-400) L D 12/02/16 05:30 MPV 8.0 fl 12/02/16 05:30 Neutrophils % 69.7 % (40.0-80.0) 12/02/16 05:30 Band Neutrophils % 4 % (0-10) 11/30/16 05:10 Lymphocytes % 17.4 % (20.0-50.0) L 12/02/16 05:30 Monocytes % 11.7 % (2.0-10.0) H 12/02/16 05:30 Eosinophils % 1.1 % (0.0-5.0) 12/02/16 05:30 Basophils % 0.1 % (0.0-2.0) 12/02/16 05:30 Neutrophils (Manual) 74 % (40-80) 11/30/16 05:10 Lymphocytes 14 % (20-50) L 11/30/16 05:10 Monocytes 8 % (2-10) 11/30/16 05:10 Nucleated RBCs 2.0 % (0-0) H 11/30/16 05:10 Toxic Granulation 1+ 11/30/16 05:10 Platelet Estimate SLIGHT DECREASED (NORMAL) 11/30/16 05:10 Platelet Morphology NORMAL (NORMAL) 11/29/16 05:52 Anisocytosis 1+ 11/29/16 05:52 Macrocytosis 1+ 11/30/16 05:10 Schistocytes 1+ 11/28/16 17:06 RBC Morph Micro Appear ABNORMAL (NORMAL) 11/30/16 05:10 Eos Smear Source URINE 11/29/16 17:10 Eos Smear Total Cells NONE SEEN (NONE SEEN) 11/29/16 17:10 Plt Count 97 Th/cmm (150-750) L 12/01/16 05:25 PT 20.1 SECONDS (9.5-11.5) H 12/02/16 05:30 INR 1.87 (0.5-1.4) H 12/02/16 05:30 PTT (Actin FS) 33.2 SECONDS (26.0-38.0) 12/01/16 05:25 Fibrinogen 195.0 mg/dL (200.0-400.0) L 12/01/16 05:25 D-Dimer 2230 ng/mL (100-400) H 12/01/16 05:25 Sodium 132 mEq/L (136-145) L 12/02/16 05:30 Potassium 3.8 mEq/L (3.5-5.1) 12/02/16 05:30 Chloride 95 mEq/L (98-107) L 12/02/16 05:30 Carbon Dioxide 31.0 mEq/L (21.0-31.0) 12/02/16 05:30 Anion Gap 9.8 (7.0-16.0) 12/02/16 05:30 BUN 30 mg/dL (7-25) H 12/02/16 05:30 Creatinine 1.1 mg/dL (0.6-1.2) 12/02/16 05:30 Est GFR ( Amer) > 60.0 ml/min (>90) 12/02/16 05:30 Est GFR (Non-Af Amer) 53.7 ml/min 12/02/16 05:30 BUN/Creatinine Ratio 27.3 12/02/16 05:30 Glucose 128 mg/dL (70-105) H 12/02/16 05:30 Whole Bld Lactic Acid 2.52 mmol/L (0.60-1.99) H* 11/28/16 19:12 Uric Acid 12.1 mg/dL (2.3-6.6) H 11/30/16 05:10 Calcium 8.7 mg/dL (8.6-10.3) 12/02/16 05:30 Phosphorus 1.1 mg/dL (2.5-5.0) L 12/01/16 05:25 Magnesium 2.0 mg/dL (1.9-2.7) 12/01/16 05:25 Total Bilirubin 11.4 mg/dL (0.3-1.0) H 12/02/16 05:30 AST 159 U/L (13-39) H 12/02/16 05:30 ALT 109 U/L (7-52) H 12/02/16 05:30 Alkaline Phosphatase 212 U/L (34-104) H 12/02/16 05:30 Ammonia 66 umol/L (16-53) H 11/30/16 16:03 Creatine Kinase 697 U/L (30-223) H 11/28/16 17:06 CK-MB (CK-2) 9.7 ng/mL (0.6-6.3) H 11/28/16 17:06 Total Protein 5.3 gm/dL (6.0-8.3) L 12/02/16 05:30 Albumin 2.9 gm/dL (3.7-5.3) L 12/02/16 05:30 Globulin 2.4 gm/dL 12/02/16 05:30 Albumin/Globulin Ratio 1.2 (1.0-1.8) 12/02/16 05:30 Tumor Marker AFP 5.6 ng/mL (0.0-8.3) 11/30/16 16:03 Urine Source CLEAN C 11/28/16 17:52 Urine Color YELLOW 11/28/16 17:52 Urine Clarity CLOUDY (CLEAR) H 11/28/16 17:52 Urine pH 5.5 (4.6 - 8.0) 11/28/16 17:52 Ur Specific [place] 1.025 (1.005-1.030) 11/28/16 17:52 Urine Protein 30 mg/dL (NEGATIVE) H 11/28/16 17:52 Urine Glucose (UA) NEGATIVE mg/dL (NEGATIVE) 11/28/16 17:52 Urine Ketones 15 mg/dL (NEGATIVE) H 11/28/16 17:52 Urine Blood LARGE (NEGATIVE) H 11/28/16 17:52 Urine Nitrate NEGATIVE (NEGATIVE) 11/28/16 17:52 Urine Bilirubin MODERATE (NEGATIVE) H 11/28/16 17:52 Urine Urobilinogen 1.0 E.U./dL (0.2 - 1.0) 11/28/16 17:52 Ur Leukocyte Esterase MODERATE (NEGATIVE) H 11/28/16 17:52 Urine RBC 2-5 /hpf (0-5) 11/28/16 17:52 Urine WBC 50-100 /hpf (0-5) H 11/28/16 17:52 Ur Epithelial Cells MODERATE /lpf (FEW) 11/28/16 17:52 Urine Bacteria MODERATE /hpf (NONE SEEN) 11/28/16 17:52 Ur Random Sodium 8 mmol/L 11/29/16 17:10 Urine Creatinine 119.0 mg/dl (28.0-217.0) 11/29/16 17:10 Hepatitis A IgM Ab Negative (Negative) 11/29/16 05:52 Hep Bs Antigen Negative (Negative) 11/29/16 05:52 Hep B Core IgM Ab Negative (Negative) 11/29/16 05:52 Hepatitis C Antibody <0.1 s/co ratio (0.0-0.9) 11/29/16 05:52 - Physical Exam Vitals and I&O: Vital Signs Temp 97.3 F 12/02/16 04:00 Pulse 83 12/02/16 04:00 Resp 20 12/02/16 04:00 BP 110/68 12/02/16 04:00 Pulse Ox 97 12/02/16 04:00 Intake & Output 12/01/16 12/02/16 12/02/16 18:59 06:59 18:59 Intake Total 50 Output Total 300 Balance 50 -300 Weight (lbs) 77.7 kg Intake: Intake, IV Amount 50 Levofloxacin 250mg/50mL 50 250 mg In 50 ml @ 50 mls/ hr IV Q24HR [facility] Rx#: [id number] Output: Urine 300 Active Medications: Current Medications Furosemide (Lasix) 40 mg PO DAILY [facility] Stop: 01/29/17 13:59 Last Admin: 12/01/16 08:31 Dose: 40 mg Levofloxacin (Levaquin Pb) 250 mg in 50 mls @ 50 mls/hr IV Q24HR [facility] Stop: 01/29/17 08:59 Last Infusion: 12/01/16 09:26 Dose: Infused Lactobacillus Rhamnosus (Culturelle) 1 each PO DAILY [facility] Stop: 01/31/17 08:59 Lactulose (Cephulac) 30 gm PO TID [facility] Stop: 01/31/17 08:59 Miscellaneous (Probiotic Screen) 1 ea MC PRN PRN PRN Reason: PROTOCOL Stop: 01/30/17 16:44 Morphine Sulfate (Morphine) 1 mg IVP Q6H PRN PRN Reason: Pain (Moderate) Stop: 01/28/17 11:14 Pentoxifylline (Trental) 400 mg PO TIDWM [facility] Stop: 01/30/17 16:59 Last Admin: 12/01/16 16:48 Dose: 400 mg Spironolactone (Aldactone) 50 mg PO BID [facility] Stop: 01/29/17 16:59 Last Admin: 12/01/16 16:42 Dose: 50 mg General: Alert, Oriented x3, No acute distress HEENT: Atraumatic, PERRLA, EOMI, Other (scleral icterus) Neck: Supple Cardiovascular: Regular rate, Normal S1, Normal S2 Lungs: Clear to auscultation Abdomen: Bowel sounds, Soft, Hepatomegaly, Distended Extremities: no Clubbing, no Cyanosis, no Edema Neurological: Sensation intact Skin: no Rash Psych/Mental Status: Mood NL Assessment/Plan - Problem List Patient Problems: All Active Problems Acute on chronic alcoholic liver disease (Acute) K70.9 Anemia (Acute) D64.9 Chronic kidney disease (Acute) N18.9 Coagulopathy (Acute) Hypokalemia (Acute) E87.6 Sepsis (Acute) UTI (urinary tract infection) (Acute) - Assessment Assessment: Acute Alcoholic liver Cirrhosis ... GI consult. U/S Abd. hepatitis panel coagulopathy secondary to acute liver cirrhosis ... repeat PT/INR anemia ... stable. most likely d/t above. repeat CBC. start protonix. hypokalemia ... add KCL to IVF, repeat CMP tomorrow anemia ... repeat CBC CKD ... repeat CMP. Nephrology consult with Dr. Tobias UTI ... IV Levofloxacin - Plan Plan: Acute Alcoholic liver Cirrhosis ... GI consult. U/S Abd. hepatitis panel coagulopathy ... repeat PT/INR anemia ... repeat CBC sepsis ... ID consult thrombocytopenia ... improved now 147K hypokalemia ... improved. on spironolactone PO CKD ... repeat CMP. Nephrology consult with Dr. Tobias UTI ... IV Levofloxacin Nutritional Asmnt/Malnutr-PDOC - Dietary Evaluation Malnutrition Findings (Please click <Entered> for more info): Nutritional Asmnt/Malnutrition Start: 11/30/16 15: 59 Text: Status: Complete Freq: Document 11/30/16 15:59 GSUN (Rec: 11/30/16 16:23 [email or web address] [email or web address]) Nutritional Asmnt/Malnutrition Patient General Information Nutritional Screening High Risk Screening Diagnosis Acute alcoholic liver cirrhosis, anemia, sepsis, CKD , UTI Pertinent Medical Hx/Surgical Hx Alcoholic liver cirrhosis Subjective Information 61 year old female. Pt was sitting upright, pleasant. Pt noted with 2+ pitting to lower extremities and abdomen ascities large. Provided nutrition education, pt was receptive. Mild fat muscle wasting to chest and shoudlers . Spoke to JUN Licea RN stated pt apparently had fluids pulled out from ascities prior to adm, currently appear to be accumulating. Discussed low sodium diet with JUN RN expressed to keep pt on regular diet for now due to low BP. Avg PO intake 0-25% of meals yesterday, pt did not eleborate, stated usualyl fair appetite. Current Diet Order/ Nutrition Support Regular Pertinent Medications Lasix, Levaquin, Magnesium Sulfate, Morphine Pertinent Labs 11/30: potassium 3.3L, BUN 41H, creaitnine 1.5H, glucose 132H , phosphorus 0.4L, AST 289H, ALT 125H, alkaline phosphatase 181H Nutritional Hx/Data Height 1.6 m Height (Calculated Centimeters) 160.0 Current Weight (lbs) 76.793 kg Weight (Calculated Kilograms) 76.8 Weight (Calculated Grams) 40311.2 [place] Body Weight 115 GI Symptoms Cultural/Ethnic/Gnosticism Belief Pt eats out a lot due to kitchen currently preoccupied by mother's passing. Pt is aware and mindful that outside foods may be high in sodium. Skin Integrity/Comment: Nura 16. Abrasions to knees, rash to legs, skin tear right elbow. Current %PO Negligible < 25% Estimated Nutritional Goals Calories/Kcals/Kg IBW 115lb/52.3kg Kcals Calculated 1569-1831kcal (30-35kcal/kg) Protein Calculated 52-73g (1-1.4g/kg) Fluid: ml per MD Nutritional Problem 3. Problem Problem Impaired nutrient utilization related to Etiology CKD aeb Signs/Symptoms: 11/30: BUN 41H, creatinine 1.5H 2. Problem Problem Inadequate PO intake related to Etiology unknown aeb Signs/Symptoms: 0-25% of meals on 11/29 1. Problem Problem Altered GI function related to Etiology liver cirrhosis aeb Signs/Symptoms: ascities, edema fluid retention Malnutrition Alert Body Fat Depletion (Non-Severe) Mild Depletion Muscle Mass (Non-Severe) Mild Depletion Intervention/Recommendation Comments 1. Recommend low sodium diet, when BP stabilizes, to aid in liver cirrhosis, fluid retention, CKD. Discussed with RN JUN Licea expressed to keep regular diet for now due to low BP. 2. Provided nutrition education on alcohol vs malnutrition, low sodium vs fluid retention. Pt understood and was receptive. 3. PO intake inadequate yesterday. Write explained importance of nutrition especially likeliness of chronic malnutrition. Pt agreed and motivated. Expected Outcomes/Goals Expected Outcomes/Goals 1. PO intake to meet at least 75% of esitmated nutritional needs.
[2016-12-02 09:12] LABS: MEAN CELL VOLUME 111.8 fl (81-100)
[2016-12-02] MEDS: Lactobacillus Rhamnosus 10 Billion CFU Capsule PO SCH (09:26)
[2016-12-02] MEDS: Levofloxacin 250 mg/50 mL Premix Bag IV SCH (09:31)
--- NOTE | 2016-12-02 10:54 | GI Progress Note ---
Subjective - Review of Systems Subjective: Pt has not yet had BM, feels bloated. Objective - Results Result Diagrams: 12/02/16 05:30 12/02/16 05:30 Recent Labs: Laboratory Last Values WBC 15.3 Th/cmm (4.8-10.8) H D 12/02/16 05:30 RBC 2.84 Mil/cmm (3.80-5.10) L 12/02/16 05:30 Hgb 11.2 gm/dL (11.7-15.5) L 12/02/16 05:30 Hct 31.8 % (35.0-45.0) L D 12/02/16 05:30 MCV 111.8 fl (81-100) H 12/02/16 05:30 MCH 39.4 pg (27.0-31.0) H 12/02/16 05:30 MCHC Differential 35.2 pg (28.0-36.0) 12/02/16 05:30 RDW 15.7 % (11.5-20.0) 12/02/16 05:30 Plt Count 147 Th/cmm (150-400) L D 12/02/16 05:30 MPV 8.0 fl 12/02/16 05:30 Neutrophils % 69.7 % (40.0-80.0) 12/02/16 05:30 Band Neutrophils % 4 % (0-10) 11/30/16 05:10 Lymphocytes % 17.4 % (20.0-50.0) L 12/02/16 05:30 Monocytes % 11.7 % (2.0-10.0) H 12/02/16 05:30 Eosinophils % 1.1 % (0.0-5.0) 12/02/16 05:30 Basophils % 0.1 % (0.0-2.0) 12/02/16 05:30 Neutrophils (Manual) 74 % (40-80) 11/30/16 05:10 Lymphocytes 14 % (20-50) L 11/30/16 05:10 Monocytes 8 % (2-10) 11/30/16 05:10 Nucleated RBCs 2.0 % (0-0) H 11/30/16 05:10 Toxic Granulation 1+ 11/30/16 05:10 Platelet Estimate SLIGHT DECREASED (NORMAL) 11/30/16 05:10 Platelet Morphology NORMAL (NORMAL) 11/29/16 05:52 Anisocytosis 1+ 11/29/16 05:52 Macrocytosis 1+ 11/30/16 05:10 Schistocytes 1+ 11/28/16 17:06 RBC Morph Micro Appear ABNORMAL (NORMAL) 11/30/16 05:10 Eos Smear Source URINE 11/29/16 17:10 Eos Smear Total Cells NONE SEEN (NONE SEEN) 11/29/16 17:10 Plt Count 97 Th/cmm (150-750) L 12/01/16 05:25 PT 20.1 SECONDS (9.5-11.5) H 12/02/16 05:30 INR 1.87 (0.5-1.4) H 12/02/16 05:30 PTT (Actin FS) 33.2 SECONDS (26.0-38.0) 12/01/16 05:25 Fibrinogen 195.0 mg/dL (200.0-400.0) L 12/01/16 05:25 D-Dimer 2230 ng/mL (100-400) H 12/01/16 05:25 Sodium 132 mEq/L (136-145) L 12/02/16 05:30 Potassium 3.8 mEq/L (3.5-5.1) 12/02/16 05:30 Chloride 95 mEq/L (98-107) L 12/02/16 05:30 Carbon Dioxide 31.0 mEq/L (21.0-31.0) 12/02/16 05:30 Anion Gap 9.8 (7.0-16.0) 12/02/16 05:30 BUN 30 mg/dL (7-25) H 12/02/16 05:30 Creatinine 1.1 mg/dL (0.6-1.2) 12/02/16 05:30 Est GFR ( Amer) > 60.0 ml/min (>90) 12/02/16 05:30 Est GFR (Non-Af Amer) 53.7 ml/min 12/02/16 05:30 BUN/Creatinine Ratio 27.3 12/02/16 05:30 Glucose 128 mg/dL (70-105) H 12/02/16 05:30 Whole Bld Lactic Acid 2.52 mmol/L (0.60-1.99) H* 11/28/16 19:12 Uric Acid 12.1 mg/dL (2.3-6.6) H 11/30/16 05:10 Calcium 8.7 mg/dL (8.6-10.3) 12/02/16 05:30 Phosphorus 1.1 mg/dL (2.5-5.0) L 12/01/16 05:25 Magnesium 2.0 mg/dL (1.9-2.7) 12/01/16 05:25 Total Bilirubin 11.4 mg/dL (0.3-1.0) H 12/02/16 05:30 AST 159 U/L (13-39) H 12/02/16 05:30 ALT 109 U/L (7-52) H 12/02/16 05:30 Alkaline Phosphatase 212 U/L (34-104) H 12/02/16 05:30 Ammonia 50 umol/L (16-53) 12/02/16 09:55 Creatine Kinase 697 U/L (30-223) H 11/28/16 17:06 CK-MB (CK-2) 9.7 ng/mL (0.6-6.3) H 11/28/16 17:06 Total Protein 5.3 gm/dL (6.0-8.3) L 12/02/16 05:30 Albumin 2.9 gm/dL (3.7-5.3) L 12/02/16 05:30 Globulin 2.4 gm/dL 12/02/16 05:30 Albumin/Globulin Ratio 1.2 (1.0-1.8) 12/02/16 05:30 Tumor Marker AFP 5.6 ng/mL (0.0-8.3) 11/30/16 16:03 Urine Source CLEAN C 11/28/16 17:52 Urine Color YELLOW 11/28/16 17:52 Urine Clarity CLOUDY (CLEAR) H 11/28/16 17:52 Urine pH 5.5 (4.6 - 8.0) 11/28/16 17:52 Ur Specific [place] 1.025 (1.005-1.030) 11/28/16 17:52 Urine Protein 30 mg/dL (NEGATIVE) H 11/28/16 17:52 Urine Glucose (UA) NEGATIVE mg/dL (NEGATIVE) 11/28/16 17:52 Urine Ketones 15 mg/dL (NEGATIVE) H 11/28/16 17:52 Urine Blood LARGE (NEGATIVE) H 11/28/16 17:52 Urine Nitrate NEGATIVE (NEGATIVE) 11/28/16 17:52 Urine Bilirubin MODERATE (NEGATIVE) H 11/28/16 17:52 Urine Urobilinogen 1.0 E.U./dL (0.2 - 1.0) 11/28/16 17:52 Ur Leukocyte Esterase MODERATE (NEGATIVE) H 11/28/16 17:52 Urine RBC 2-5 /hpf (0-5) 11/28/16 17:52 Urine WBC 50-100 /hpf (0-5) H 11/28/16 17:52 Ur Epithelial Cells MODERATE /lpf (FEW) 11/28/16 17:52 Urine Bacteria MODERATE /hpf (NONE SEEN) 11/28/16 17:52 Ur Random Sodium 8 mmol/L 11/29/16 17:10 Urine Creatinine 119.0 mg/dl (28.0-217.0) 11/29/16 17:10 Hepatitis A IgM Ab Negative (Negative) 11/29/16 05:52 Hep Bs Antigen Negative (Negative) 11/29/16 05:52 Hep B Core IgM Ab Negative (Negative) 11/29/16 05:52 Hepatitis C Antibody <0.1 s/co ratio (0.0-0.9) 11/29/16 05:52 - Physical Exam Vitals and I&O: Vital Signs Temp 97.7 F 12/02/16 10:35 Pulse 97 12/02/16 10:35 Resp 18 12/02/16 10:35 BP 103/70 12/02/16 10:35 Pulse Ox 94 12/02/16 10:35 Intake & Output 12/01/16 12/02/16 12/02/16 18:59 06:59 18:59 Intake Total 50 Output Total 300 Balance 50 -300 Weight (lbs) 77.7 kg Intake: Intake, IV Amount 50 Levofloxacin 250mg/50mL 50 250 mg In 50 ml @ 50 mls/ hr IV Q24HR [facility] Rx#: [id number] Output: Urine 300 Active Medications: Current Medications Furosemide (Lasix) 40 mg PO DAILY [facility] Stop: 01/29/17 13:59 Last Admin: 12/02/16 09:26 Dose: Not Given Levofloxacin (Levaquin Pb) 250 mg in 50 mls @ 50 mls/hr IV Q24HR [facility] Stop: 01/29/17 08:59 Last Admin: 12/02/16 09:31 Dose: 50 mls/hr Lactobacillus Rhamnosus (Culturelle) 1 each PO DAILY [facility] Stop: 01/31/17 08:59 Last Admin: 12/02/16 09:26 Dose: Not Given Lactulose (Cephulac) 30 gm PO TID [facility] Stop: 01/31/17 08:59 Miscellaneous (Probiotic Screen) 1 ea MC PRN PRN PRN Reason: PROTOCOL Stop: 01/30/17 16:44 Morphine Sulfate (Morphine) 1 mg IVP Q6H PRN PRN Reason: Pain (Moderate) Stop: 01/28/17 11:14 Pantoprazole Sodium (Protonix) 40 mg IVP DAILY [facility] Stop: 01/31/17 08:59 Pentoxifylline (Trental) 400 mg PO TIDWM [facility] Stop: 01/30/17 16:59 Last Admin: 12/02/16 09:26 Dose: Not Given Spironolactone (Aldactone) 50 mg PO BID [facility] Stop: 01/29/17 16:59 Last Admin: 12/02/16 09:27 Dose: Not Given General: Alert, Oriented x3, No acute distress HEENT: Atraumatic, PERRLA, EOMI, Other (scleral icterus) Neck: Supple Cardiovascular: Regular rate, Normal S1, Normal S2 Lungs: Clear to auscultation Abdomen: Bowel sounds, Soft, Hepatomegaly, Distended Extremities: no Clubbing, no Cyanosis, no Edema Neurological: Sensation intact Skin: no Rash Psych/Mental Status: Mood NL Assessment/Plan - Problem List Patient Problems: All Active Problems Acute on chronic alcoholic liver disease (Acute) K70.9 Anemia (Acute) D64.9 Chronic kidney disease (Acute) N18.9 Coagulopathy (Acute) Hypokalemia (Acute) E87.6 Sepsis (Acute) UTI (urinary tract infection) (Acute) - Assessment Assessment: # Alcoholic hepatitis # Likely underlying cirrhosis decompensated by ascites # UTI on abx Alc hep with discriminant function at 51. However, pt has concurrent UTI on abx therapy, and her LFTs are improving. Thus, will not use prednisilone now. Instead, will start trental 400mg tid for 28 days. Pt has ascites, and had 9L removed at [facility] last week. Will order another US and paracentesis here given re-accumulation. Will also increase aldactone to 100mg and keep lasix at 40mg daily for optimal diuretic ratio. Pt will need albumin given if more than 5L removed at time of paracentesis Pt will need underlying cirrhosis evaluation and EGD, although this can be done after she abstains from EtOH for extended period of time, likely outpt Tbili continues to rise, which is observed with alcoholic liver disease. However , will need to ensure there is no concurrent obstructive biliary pathology as well, and thus will obtain MRCP Plan: - US and paracentesis. Albumin if >5L is taken off - aldactone 100mg and lasix 40mg po, increase as electrolytes and Cr allow tomorrow - trental 400mg tid for 28 days - abstain from all EtOH - MRCP as above - lactulose to relieve constipation and HE
--- NOTE | 2016-12-02 11:25 | Diagnostic Imaging Report ---
Abdominal (Limited) HISTORY: Ascites Sonographic sector images were obtained over the right and left abdominal regions for assessment of ascites. The exam demonstrates a moderate to large amount of ascites within the right and left abdominal areas. Evaluation of the intra-abdominal organs not performed at this time. IMPRESSION: 1. Moderate to large amount of ascites
[2016-12-02] MEDS: Lactulose 10 Gm/15 mL 30mL UDC PO SCH ×2 (13:19→21:58)
--- NOTE | 2016-12-02 14:26 | Diagnostic Imaging Report ---
Paracentesis (ultrasound-guided) HISTORY: Ascites Using ultrasound guidance and sterile technique, 7 L of yellow tinted ascitic fluid was aspirated from the right lower quadrant of the abdomen. The patient tolerated the procedure with no immediate apparent clinical complications. IMPRESSION: 1. Paracentesis as noted above
--- NOTE | 2016-12-02 15:01 | General Progress Note ---
Subjective - Review of Systems Service Date: 12/02/16 Subjective: sleeping, more comfortable Objective - Results Result Diagrams: 12/02/16 05:30 12/02/16 05:30 Recent Labs: Laboratory Last Values WBC 15.3 Th/cmm (4.8-10.8) H D 12/02/16 05:30 RBC 2.84 Mil/cmm (3.80-5.10) L 12/02/16 05:30 Hgb 11.2 gm/dL (11.7-15.5) L 12/02/16 05:30 Hct 31.8 % (35.0-45.0) L D 12/02/16 05:30 MCV 111.8 fl (81-100) H 12/02/16 05:30 MCH 39.4 pg (27.0-31.0) H 12/02/16 05:30 MCHC Differential 35.2 pg (28.0-36.0) 12/02/16 05:30 RDW 15.7 % (11.5-20.0) 12/02/16 05:30 Plt Count 147 Th/cmm (150-400) L D 12/02/16 05:30 MPV 8.0 fl 12/02/16 05:30 Neutrophils % 69.7 % (40.0-80.0) 12/02/16 05:30 Band Neutrophils % 4 % (0-10) 11/30/16 05:10 Lymphocytes % 17.4 % (20.0-50.0) L 12/02/16 05:30 Monocytes % 11.7 % (2.0-10.0) H 12/02/16 05:30 Eosinophils % 1.1 % (0.0-5.0) 12/02/16 05:30 Basophils % 0.1 % (0.0-2.0) 12/02/16 05:30 Neutrophils (Manual) 74 % (40-80) 11/30/16 05:10 Lymphocytes 14 % (20-50) L 11/30/16 05:10 Monocytes 8 % (2-10) 11/30/16 05:10 Nucleated RBCs 2.0 % (0-0) H 11/30/16 05:10 Toxic Granulation 1+ 11/30/16 05:10 Platelet Estimate SLIGHT DECREASED (NORMAL) 11/30/16 05:10 Platelet Morphology NORMAL (NORMAL) 11/29/16 05:52 Anisocytosis 1+ 11/29/16 05:52 Macrocytosis 1+ 11/30/16 05:10 Schistocytes 1+ 11/28/16 17:06 RBC Morph Micro Appear ABNORMAL (NORMAL) 11/30/16 05:10 Eos Smear Source URINE 11/29/16 17:10 Eos Smear Total Cells NONE SEEN (NONE SEEN) 11/29/16 17:10 Plt Count 97 Th/cmm (150-750) L 12/01/16 05:25 PT 20.1 SECONDS (9.5-11.5) H 12/02/16 05:30 INR 1.87 (0.5-1.4) H 12/02/16 05:30 PTT (Actin FS) 33.2 SECONDS (26.0-38.0) 12/01/16 05:25 Fibrinogen 195.0 mg/dL (200.0-400.0) L 12/01/16 05:25 D-Dimer 2230 ng/mL (100-400) H 12/01/16 05:25 Sodium 132 mEq/L (136-145) L 12/02/16 05:30 Potassium 3.8 mEq/L (3.5-5.1) 12/02/16 05:30 Chloride 95 mEq/L (98-107) L 12/02/16 05:30 Carbon Dioxide 31.0 mEq/L (21.0-31.0) 12/02/16 05:30 Anion Gap 9.8 (7.0-16.0) 12/02/16 05:30 BUN 30 mg/dL (7-25) H 12/02/16 05:30 Creatinine 1.1 mg/dL (0.6-1.2) 12/02/16 05:30 Est GFR ( Amer) > 60.0 ml/min (>90) 12/02/16 05:30 Est GFR (Non-Af Amer) 53.7 ml/min 12/02/16 05:30 BUN/Creatinine Ratio 27.3 12/02/16 05:30 Glucose 128 mg/dL (70-105) H 12/02/16 05:30 Whole Bld Lactic Acid 2.52 mmol/L (0.60-1.99) H* 11/28/16 19:12 Uric Acid 12.1 mg/dL (2.3-6.6) H 11/30/16 05:10 Calcium 8.7 mg/dL (8.6-10.3) 12/02/16 05:30 Phosphorus 1.1 mg/dL (2.5-5.0) L 12/01/16 05:25 Magnesium 2.0 mg/dL (1.9-2.7) 12/01/16 05:25 Total Bilirubin 11.4 mg/dL (0.3-1.0) H 12/02/16 05:30 AST 159 U/L (13-39) H 12/02/16 05:30 ALT 109 U/L (7-52) H 12/02/16 05:30 Alkaline Phosphatase 212 U/L (34-104) H 12/02/16 05:30 Ammonia 50 umol/L (16-53) 12/02/16 09:55 Creatine Kinase 697 U/L (30-223) H 11/28/16 17:06 CK-MB (CK-2) 9.7 ng/mL (0.6-6.3) H 11/28/16 17:06 Total Protein 5.3 gm/dL (6.0-8.3) L 12/02/16 05:30 Albumin 2.9 gm/dL (3.7-5.3) L 12/02/16 05:30 Globulin 2.4 gm/dL 12/02/16 05:30 Albumin/Globulin Ratio 1.2 (1.0-1.8) 12/02/16 05:30 Tumor Marker AFP 5.6 ng/mL (0.0-8.3) 11/30/16 16:03 Urine Source CLEAN C 11/28/16 17:52 Urine Color YELLOW 11/28/16 17:52 Urine Clarity CLOUDY (CLEAR) H 11/28/16 17:52 Urine pH 5.5 (4.6 - 8.0) 11/28/16 17:52 Ur Specific [place] 1.025 (1.005-1.030) 11/28/16 17:52 Urine Protein 30 mg/dL (NEGATIVE) H 11/28/16 17:52 Urine Glucose (UA) NEGATIVE mg/dL (NEGATIVE) 11/28/16 17:52 Urine Ketones 15 mg/dL (NEGATIVE) H 11/28/16 17:52 Urine Blood LARGE (NEGATIVE) H 11/28/16 17:52 Urine Nitrate NEGATIVE (NEGATIVE) 11/28/16 17:52 Urine Bilirubin MODERATE (NEGATIVE) H 11/28/16 17:52 Urine Urobilinogen 1.0 E.U./dL (0.2 - 1.0) 11/28/16 17:52 Ur Leukocyte Esterase MODERATE (NEGATIVE) H 11/28/16 17:52 Urine RBC 2-5 /hpf (0-5) 11/28/16 17:52 Urine WBC 50-100 /hpf (0-5) H 11/28/16 17:52 Ur Epithelial Cells MODERATE /lpf (FEW) 11/28/16 17:52 Urine Bacteria MODERATE /hpf (NONE SEEN) 11/28/16 17:52 Ur Random Sodium 8 mmol/L 11/29/16 17:10 Urine Creatinine 119.0 mg/dl (28.0-217.0) 11/29/16 17:10 Hepatitis A IgM Ab Negative (Negative) 11/29/16 05:52 Hep Bs Antigen Negative (Negative) 11/29/16 05:52 Hep B Core IgM Ab Negative (Negative) 11/29/16 05:52 Hepatitis C Antibody <0.1 s/co ratio (0.0-0.9) 11/29/16 05:52 HIV 1&2 Antibody Screen Non Reactive (Non Reactive) 12/01/16 05:25 - Physical Exam Vitals and I&O: Vital Signs Temp 96.1 F 12/02/16 12:00 Pulse 102 12/02/16 12:00 Resp 19 12/02/16 12:00 BP 105/70 12/02/16 12:00 Pulse Ox 96 12/02/16 12:00 Intake & Output 12/01/16 12/02/16 12/02/16 18:59 06:59 18:59 Intake Total 50 Output Total 300 Balance 50 -300 Weight (lbs) 77.7 kg Intake: Intake, IV Amount 50 Levofloxacin 250mg/50mL 50 250 mg In 50 ml @ 50 mls/ hr IV Q24HR [facility] Rx#: [id number] Output: Urine 300 Active Medications: Current Medications Furosemide (Lasix) 40 mg PO DAILY [facility] Stop: 01/29/17 13:59 Last Admin: 12/02/16 09:26 Dose: Not Given Levofloxacin (Levaquin Pb) 250 mg in 50 mls @ 50 mls/hr IV Q24HR [facility] Stop: 01/29/17 08:59 Last Admin: 12/02/16 09:31 Dose: 50 mls/hr Lactobacillus Rhamnosus (Culturelle) 1 each PO DAILY [facility] Stop: 01/31/17 08:59 Last Admin: 12/02/16 09:26 Dose: Not Given Lactulose (Cephulac) 30 gm PO TID [facility] Stop: 01/31/17 13:59 Last Admin: 12/02/16 13:19 Dose: 30 gm Miscellaneous (Probiotic Screen) 1 ea MC PRN PRN PRN Reason: PROTOCOL Stop: 01/30/17 16:44 Morphine Sulfate (Morphine) 1 mg IVP Q6H PRN PRN Reason: Pain (Moderate) Stop: 01/28/17 11:14 Pantoprazole Sodium (Protonix) 40 mg IVP QDAC [facility] Stop: 01/31/17 13:59 Last Admin: 12/02/16 13:20 Dose: 40 mg Pentoxifylline (Trental) 400 mg PO TIDWM [facility] Stop: 01/30/17 16:59 Last Admin: 12/02/16 13:20 Dose: 400 mg Spironolactone (Aldactone) 50 mg PO BID [facility] Stop: 01/29/17 16:59 Last Admin: 12/02/16 09:27 Dose: Not Given General: Alert, Oriented x3, No acute distress HEENT: Atraumatic, PERRLA, EOMI, Other (scleral icterus) Neck: Supple Cardiovascular: Regular rate, Normal S1, Normal S2 Lungs: Clear to auscultation Abdomen: Bowel sounds, Soft, Hepatomegaly, Distended Extremities: no Clubbing, no Cyanosis, no Edema Neurological: Sensation intact Skin: no Rash Psych/Mental Status: Mood NL Assessment/Plan - Problem List Patient Problems: All Active Problems Acute on chronic alcoholic liver disease (Acute) K70.9 Anemia (Acute) D64.9 Chronic kidney disease (Acute) N18.9 Coagulopathy (Acute) Hypokalemia (Acute) E87.6 Sepsis (Acute) UTI (urinary tract infection) (Acute) - Assessment Assessment: KATLIN on CKD r/o HRS Hypotension 2nd to decrease ECV Coagulopathy 2nd Liver ds., DIC CLD Alcohol Cirrhosis/ Fatty Liver Cx UTI Ascites Severe Malnutrition - Plan Plan: Current Medications Furosemide (Lasix) 40 mg PO DAILY [facility] Stop: 01/29/17 13:59 Last Admin: 12/01/16 08:31 Dose: 40 mg Levofloxacin (Levaquin Pb) 250 mg in 50 mls @ 50 mls/hr IV Q24HR [facility] Stop: 01/29/17 08:59 Last Infusion: 12/01/16 09:26 Dose: Infused Lactobacillus Rhamnosus (Culturelle) 1 each PO DAILY [facility] Stop: 01/31/17 08:59 Miscellaneous (Probiotic Screen) 1 ea MC PRN PRN PRN Reason: PROTOCOL Stop: 01/30/17 16:44 Morphine Sulfate (Morphine) 1 mg IVP Q6H PRN PRN Reason: Pain (Moderate) Stop: 01/28/17 11:14 Pentoxifylline (Trental) 400 mg PO TIDWM [facility] Stop: 01/30/17 16:59 Last Admin: 12/01/16 16:48 Dose: 400 mg Spironolactone (Aldactone) 50 mg PO BID [facility] Stop: 01/29/17 16:59 Last Admin: 12/01/16 16:42 Dose: 50 mg Continue diuretics for now due to ascites f/u electrolytes had paracentesis & linda. 7 L was obtained BUN down to 30 Lab - Result Diagrams 12/02/16 05:30 12/02/16 05:30 Nutritional Asmnt/Malnutr-PDOC - Dietary Evaluation Malnutrition Findings (Please click <Entered> for more info): Nutritional Asmnt/Malnutrition Start: 11/30/16 15: 59 Text: Status: Complete Freq: Document 11/30/16 15:59 GSUN (Rec: 11/30/16 16:23 GSUN [email or web address]) Nutritional Asmnt/Malnutrition Patient General Information Nutritional Screening High Risk Screening Diagnosis Acute alcoholic liver cirrhosis, anemia, sepsis, CKD , UTI Pertinent Medical Hx/Surgical Hx Alcoholic liver cirrhosis Subjective Information 61 year old female. Pt was sitting upright, pleasant. Pt noted with 2+ pitting to lower extremities and abdomen ascities large. Provided nutrition education, pt was receptive. Mild fat muscle wasting to chest and shoudlers . Spoke to RN Anuja, RN stated pt apparently had fluids pulled out from ascities prior to adm, currently appear to be accumulating. Discussed low sodium diet with JUN BARAHONA expressed to keep pt on regular diet for now due to low BP. Avg PO intake 0-25% of meals yesterday, pt did not eleborate, stated usualyl fair appetite. Current Diet Order/ Nutrition Support Regular Pertinent Medications Lasix, Levaquin, Magnesium Sulfate, Morphine Pertinent Labs 11/30: potassium 3.3L, BUN 41H, creaitnine 1.5H, glucose 132H , phosphorus 0.4L, AST 289H, ALT 125H, alkaline phosphatase 181H Nutritional Hx/Data Height 1.6 m Height (Calculated Centimeters) 160.0 Current Weight (lbs) 76.793 kg Weight (Calculated Kilograms) 76.8 Weight (Calculated Grams) 66889.2 [place] Body Weight 115 GI Symptoms Cultural/Ethnic/Zoroastrian Belief Pt eats out a lot due to kitchen currently preoccupied by mother's passing. Pt is aware and mindful that outside foods may be high in sodium. Skin Integrity/Comment: Nura 16. Abrasions to knees, rash to legs, skin tear right elbow. Current %PO Negligible < 25% Estimated Nutritional Goals Calories/Kcals/Kg IBW 115lb/52.3kg Kcals Calculated 1569-1831kcal (30-35kcal/kg) Protein Calculated 52-73g (1-1.4g/kg) Fluid: ml per MD Nutritional Problem 3. Problem Problem Impaired nutrient utilization related to Etiology CKD aeb Signs/Symptoms: 11/30: BUN 41H, creatinine 1.5H 2. Problem Problem Inadequate PO intake related to Etiology unknown aeb Signs/Symptoms: 0-25% of meals on 11/29 1. Problem Problem Altered GI function related to Etiology liver cirrhosis aeb Signs/Symptoms: ascities, edema fluid retention Malnutrition Alert Body Fat Depletion (Non-Severe) Mild Depletion Muscle Mass (Non-Severe) Mild Depletion Intervention/Recommendation Comments 1. Recommend low sodium diet, when BP stabilizes, to aid in liver cirrhosis, fluid retention, CKD. Discussed with RN JUN Licea expressed to keep regular diet for now due to low BP. 2. Provided nutrition education on alcohol vs malnutrition, low sodium vs fluid retention. Pt understood and was receptive. 3. PO intake inadequate yesterday. Write explained importance of nutrition especially likeliness of chronic malnutrition. Pt agreed and motivated. Expected Outcomes/Goals Expected Outcomes/Goals 1. PO intake to meet at least 75% of esitmated nutritional needs.
[2016-12-02 16:32] LABS: BF BASOPHILES 0 %; BF NEUTROPHILES 54 %
[2016-12-03 05:51] LABS: HEMOGLOBIN 11.9 gm/dL (12-16); RED BLOOD COUNT 3.04 Mil/cmm (3.80-5.10); RED CELL DISTRIBUTION WIDTH 15.7 % (11.5-20.0)
[2016-12-03 05:57] LABS: HEMATOCRIT 33.8 % (41.0-60)
[2016-12-03 06:06] LABS: BUN - UREA NITROGEN 28 mg/dL (7-25); BUN/CREATININE RATIO 31.1; CALCIUM SERUM 8.7 mg/dL (8.6-10.3); CARBON DIOXIDE 28.5 mEq/L (21.0-31.0); CHLORIDE 94 mEq/L (98-107); CREATININE - SERUM 0.9 mg/dL (0.6-1.2); GLUCOSE 119 mg/dL (70-105); POTASSIUM SERUM 3.5 mEq/L (3.5-5.1); SODIUM SERUM 129 mEq/L (136-145)
[2016-12-03 06:14] LABS: MEAN CORPUSCULAR HEMOGLOBIN 39.1 pg (27.0-31.0)
[2016-12-03 06:15] LABS: MEAN PLATELET VOLUME 7.3 fl; PLATELET COUNT 213 Th/cmm (150-400)
[2016-12-03 06:21] LABS: BAND NEUTROPHILE 3 % (0-10); EOSINOPHIL 1 % (0-5); NEUTROPHILS 77 % (40-80); TOTAL CELLS COUNTED 100
--- NOTE | 2016-12-03 08:31 | General Progress Note ---
Subjective - Review of Systems Service Date: 12/03/16 Subjective: 61 year old female who presents with chronic liver cirrhosis. Patient complaining of nausea this AM but had bowel movement yesterday. less generalized weakness and fatigue. blood pressure improved. no nausea or vomiting. UTI +E. Coli Objective - Results Result Diagrams: 12/03/16 05:37 12/03/16 05:37 Recent Labs: Laboratory Last Values WBC 19.0 Th/cmm (4.8-10.8) H D 12/03/16 05:37 RBC 3.04 Mil/cmm (3.80-5.10) L 12/03/16 05:37 Hgb 11.9 gm/dL (12-16) L 12/03/16 05:37 Hct 33.8 % (41.0-60) L 12/03/16 05:37 MCV 111.8 fl (81-100) H 12/02/16 05:30 MCH 39.1 pg (27.0-31.0) H 12/03/16 05:37 MCHC Differential 35.0 pg (28.0-36.0) 12/03/16 05:37 RDW 15.7 % (11.5-20.0) 12/03/16 05:37 Plt Count 213 Th/cmm (150-400) D 12/03/16 05:37 MPV 7.3 fl 12/03/16 05:37 Neutrophils % 69.7 % (40.0-80.0) 12/02/16 05:30 Band Neutrophils % 3 % (0-10) 12/03/16 05:37 Lymphocytes % 17.4 % (20.0-50.0) L 12/02/16 05:30 Monocytes % 11.7 % (2.0-10.0) H 12/02/16 05:30 Eosinophils % 1.1 % (0.0-5.0) 12/02/16 05:30 Basophils % 0.1 % (0.0-2.0) 12/02/16 05:30 Neutrophils (Manual) 77 % (40-80) 12/03/16 05:37 Lymphocytes 12 % (20-50) L 12/03/16 05:37 Monocytes 7 % (2-10) 12/03/16 05:37 Eosinophils 1 % (0-5) 12/03/16 05:37 Nucleated RBCs 2.0 % (0-0) H 11/30/16 05:10 Toxic Granulation 1+ 11/30/16 05:10 Platelet Estimate SLIGHT DECREASED (NORMAL) 11/30/16 05:10 Platelet Morphology NORMAL (NORMAL) 11/29/16 05:52 Anisocytosis 1+ 11/29/16 05:52 Macrocytosis 1+ 11/30/16 05:10 Schistocytes 1+ 11/28/16 17:06 RBC Morph Micro Appear ABNORMAL (NORMAL) 11/30/16 05:10 Eos Smear Source URINE 11/29/16 17:10 Eos Smear Total Cells NONE SEEN (NONE SEEN) 11/29/16 17:10 Plt Count 97 Th/cmm (150-750) L 12/01/16 05:25 PT 20.1 SECONDS (9.5-11.5) H 12/02/16 05:30 INR 1.87 (0.5-1.4) H 12/02/16 05:30 PTT (Actin FS) 33.2 SECONDS (26.0-38.0) 12/01/16 05:25 Fibrinogen 195.0 mg/dL (200.0-400.0) L 12/01/16 05:25 D-Dimer 2230 ng/mL (100-400) H 12/01/16 05:25 Sodium 129 mEq/L (136-145) L 12/03/16 05:37 Potassium 3.5 mEq/L (3.5-5.1) 12/03/16 05:37 Chloride 94 mEq/L (98-107) L 12/03/16 05:37 Carbon Dioxide 28.5 mEq/L (21.0-31.0) 12/03/16 05:37 Anion Gap 10.0 (7.0-16.0) 12/03/16 05:37 BUN 28 mg/dL (7-25) H 12/03/16 05:37 Creatinine 0.9 mg/dL (0.6-1.2) 12/03/16 05:37 Est GFR ( Amer) > 60.0 ml/min (>90) 12/03/16 05:37 Est GFR (Non-Af Amer) > 60.0 ml/min 12/03/16 05:37 BUN/Creatinine Ratio 31.1 12/03/16 05:37 Glucose 119 mg/dL (70-105) H 12/03/16 05:37 Whole Bld Lactic Acid 2.52 mmol/L (0.60-1.99) H* 11/28/16 19:12 Uric Acid 12.1 mg/dL (2.3-6.6) H 11/30/16 05:10 Calcium 8.7 mg/dL (8.6-10.3) 12/03/16 05:37 Phosphorus 1.1 mg/dL (2.5-5.0) L 12/01/16 05:25 Magnesium 2.0 mg/dL (1.9-2.7) 12/01/16 05:25 Total Bilirubin 11.4 mg/dL (0.3-1.0) H 12/02/16 05:30 AST 159 U/L (13-39) H 12/02/16 05:30 ALT 109 U/L (7-52) H 12/02/16 05:30 Alkaline Phosphatase 212 U/L (34-104) H 12/02/16 05:30 Ammonia 50 umol/L (16-53) 12/02/16 09:55 Creatine Kinase 697 U/L (30-223) H 11/28/16 17:06 CK-MB (CK-2) 9.7 ng/mL (0.6-6.3) H 11/28/16 17:06 Total Protein 5.3 gm/dL (6.0-8.3) L 12/02/16 05:30 Albumin 2.9 gm/dL (3.7-5.3) L 12/02/16 05:30 Globulin 2.4 gm/dL 12/02/16 05:30 Albumin/Globulin Ratio 1.2 (1.0-1.8) 12/02/16 05:30 Tumor Marker AFP 6.3 ng/mL (0.0-8.3) 12/01/16 05:25 Urine Source CLEAN C 11/28/16 17:52 Urine Color YELLOW 11/28/16 17:52 Urine Clarity CLOUDY (CLEAR) H 11/28/16 17:52 Urine pH 5.5 (4.6 - 8.0) 11/28/16 17:52 Ur Specific [place] 1.025 (1.005-1.030) 11/28/16 17:52 Urine Protein 30 mg/dL (NEGATIVE) H 11/28/16 17:52 Urine Glucose (UA) NEGATIVE mg/dL (NEGATIVE) 11/28/16 17:52 Urine Ketones 15 mg/dL (NEGATIVE) H 11/28/16 17:52 Urine Blood LARGE (NEGATIVE) H 11/28/16 17:52 Urine Nitrate NEGATIVE (NEGATIVE) 11/28/16 17:52 Urine Bilirubin MODERATE (NEGATIVE) H 11/28/16 17:52 Urine Urobilinogen 1.0 E.U./dL (0.2 - 1.0) 11/28/16 17:52 Ur Leukocyte Esterase MODERATE (NEGATIVE) H 11/28/16 17:52 Urine RBC 2-5 /hpf (0-5) 11/28/16 17:52 Urine WBC 50-100 /hpf (0-5) H 11/28/16 17:52 Ur Epithelial Cells MODERATE /lpf (FEW) 11/28/16 17:52 Urine Bacteria MODERATE /hpf (NONE SEEN) 11/28/16 17:52 Ur Random Sodium 8 mmol/L 11/29/16 17:10 Urine Creatinine 119.0 mg/dl (28.0-217.0) 11/29/16 17:10 Fluid Source PARACENTHESIS 12/02/16 12:30 Fluid Color YELLOW 12/02/16 12:30 Fluid Appearance CLEAR 12/02/16 12:30 Fluid WBC 36 /cumm 12/02/16 12:30 Fluid RBC 213 /cumm 12/02/16 12:30 Fluid Neutrophils 54 % 12/02/16 12:30 Fluid Lymphocytes 42 % 12/02/16 12:30 Fluid Monocytes 4 % 12/02/16 12:30 Fluid Eosinophils 0 % 12/02/16 12:30 Fluid Basophils 0 % 12/02/16 12:30 Fluid Total Protein 1.3 g/dL 12/02/16 12:30 Hepatitis A IgM Ab Negative (Negative) 11/29/16 05:52 Hep Bs Antigen Negative (Negative) 11/29/16 05:52 Hep B Core IgM Ab Negative (Negative) 11/29/16 05:52 Hepatitis C Antibody <0.1 s/co ratio (0.0-0.9) 11/29/16 05:52 HIV 1&2 Antibody Screen Non Reactive (Non Reactive) 12/01/16 05:25 - Physical Exam Vitals and I&O: Vital Signs Temp 97.7 F 12/03/16 04:51 Pulse 92 12/03/16 08:13 Resp 18 12/03/16 08:13 BP 101/66 12/03/16 04:51 Pulse Ox 96 12/03/16 08:13 Intake & Output 12/02/16 12/03/16 12/03/16 18:59 06:59 18:59 Intake Total 50 500 Output Total 500 Balance 50 0 Weight (lbs) 66.542 kg Intake: Intake, IV Amount 50 Levofloxacin 250mg/50mL 50 250 mg In 50 ml @ 50 mls/ hr IV Q24HR [facility] Rx#: [id number] Oral 500 Output: Urine 500 Active Medications: Current Medications Furosemide (Lasix) 40 mg PO DAILY [facility] Stop: 01/29/17 13:59 Last Admin: 12/02/16 09:26 Dose: Not Given Levofloxacin (Levaquin Pb) 250 mg in 50 mls @ 50 mls/hr IV Q24HR [facility] Stop: 01/29/17 08:59 Last Infusion: 12/02/16 10:31 Dose: Infused Lactobacillus Rhamnosus (Culturelle) 1 each PO DAILY [facility] Stop: 01/31/17 08:59 Last Admin: 12/02/16 09:26 Dose: Not Given Lactulose (Cephulac) 30 gm PO TID [facility] Stop: 01/31/17 13:59 Last Admin: 12/02/16 21:58 Dose: 30 gm Miscellaneous (Probiotic Screen) 1 ea MC PRN PRN PRN Reason: PROTOCOL Stop: 01/30/17 16:44 Morphine Sulfate (Morphine) 1 mg IVP Q6H PRN PRN Reason: Pain (Moderate) Stop: 01/28/17 11:14 Pantoprazole Sodium (Protonix) 40 mg IVP QDAC [facility] Stop: 01/31/17 13:59 Last Admin: 12/03/16 06:41 Dose: 40 mg Pentoxifylline (Trental) 400 mg PO TIDWM [facility] Stop: 01/30/17 16:59 Last Admin: 12/02/16 16:40 Dose: 400 mg Spironolactone (Aldactone) 50 mg PO BID [facility] Stop: 01/29/17 16:59 Last Admin: 12/02/16 16:41 Dose: 50 mg General: Alert, Oriented x3, No acute distress HEENT: Atraumatic, PERRLA, EOMI, Other (scleral icterus) Neck: Supple Cardiovascular: Regular rate, Normal S1, Normal S2 Lungs: Clear to auscultation Abdomen: Bowel sounds, Soft, Hepatomegaly, Distended Extremities: no Clubbing, no Cyanosis, no Edema Neurological: Sensation intact Skin: no Rash Psych/Mental Status: Mood NL - Procedures Procedures: Procedures Procedure Code Date ABD PARACENTESIS W/IMAGING 94643 11/28/16 DRAINAGE OF PERITONEAL CAVITY, PERCUTANEOUS APPROACH [id number] 11/28/16 Assessment/Plan - Problem List Patient Problems: All Active Problems Acute on chronic alcoholic liver disease (Acute) K70.9 Anemia (Acute) D64.9 Chronic kidney disease (Acute) N18.9 Coagulopathy (Acute) Hypokalemia (Acute) E87.6 Sepsis (Acute) UTI (urinary tract infection) (Acute) - Assessment Assessment: Acute Alcoholic liver Cirrhosis ... GI consult. U/S Abd. hepatitis panel coagulopathy secondary to acute liver cirrhosis ... repeat PT/INR anemia ... stable. most likely d/t above. repeat CBC. start protonix. hypokalemia ... add KCL to IVF, repeat CMP tomorrow anemia ... repeat CBC CKD ... repeat CMP. Nephrology consult with Dr. Tobias UTI +E. Coli ... IV Levofloxacin - Plan Plan: Acute Alcoholic liver Cirrhosis ... GI consult. U/S Abd. hepatitis panel coagulopathy ... repeat PT/INR anemia ... repeat CBC sepsis ... ID consult thrombocytopenia ... improved now 147K hypokalemia ... improved. on spironolactone PO CKD ... repeat CMP. Nephrology consult with Dr. Tobias UTI ... IV Levofloxacin Nutritional Asmnt/Malnutr-PDOC - Dietary Evaluation Malnutrition Findings (Please click <Entered> for more info): Nutritional Asmnt/Malnutrition Start: 11/30/16 15: 59 Text: Status: Complete Freq: Document 11/30/16 15:59 GSUN (Rec: 11/30/16 16:23 [facility]) Nutritional Asmnt/Malnutrition Patient General Information Nutritional Screening High Risk Screening Diagnosis Acute alcoholic liver cirrhosis, anemia, sepsis, CKD , UTI Pertinent Medical Hx/Surgical Hx Alcoholic liver cirrhosis Subjective Information 61 year old female. Pt was sitting upright, pleasant. Pt noted with 2+ pitting to lower extremities and abdomen ascities large. Provided nutrition education, pt was receptive. Mild fat muscle wasting to chest and shoudlers . Spoke to RN JUN Licea stated pt apparently had fluids pulled out from ascities prior to adm, currently appear to be accumulating. Discussed low sodium diet with JUN RN expressed to keep pt on regular diet for now due to low BP. Avg PO intake 0-25% of meals yesterday, pt did not eleborate, stated usualyl fair appetite. Current Diet Order/ Nutrition Support Regular Pertinent Medications Lasix, Levaquin, Magnesium Sulfate, Morphine Pertinent Labs 11/30: potassium 3.3L, BUN 41H, creaitnine 1.5H, glucose 132H , phosphorus 0.4L, AST 289H, ALT 125H, alkaline phosphatase 181H Nutritional Hx/Data Height 1.6 m Height (Calculated Centimeters) 160.0 Current Weight (lbs) 76.793 kg Weight (Calculated Kilograms) 76.8 Weight (Calculated Grams) 77672.2 [place] Body Weight 115 GI Symptoms Cultural/Ethnic/Orthodox Belief Pt eats out a lot due to kitchen currently preoccupied by mother's passing. Pt is aware and mindful that outside foods may be high in sodium. Skin Integrity/Comment: Nrua 16. Abrasions to knees, rash to legs, skin tear right elbow. Current %PO Negligible < 25% Estimated Nutritional Goals Calories/Kcals/Kg IBW 115lb/52.3kg Kcals Calculated 1569-1831kcal (30-35kcal/kg) Protein Calculated 52-73g (1-1.4g/kg) Fluid: ml per MD Nutritional Problem 3. Problem Problem Impaired nutrient utilization related to Etiology CKD aeb Signs/Symptoms: 11/30: BUN 41H, creatinine 1.5H 2. Problem Problem Inadequate PO intake related to Etiology unknown aeb Signs/Symptoms: 0-25% of meals on 11/29 1. Problem Problem Altered GI function related to Etiology liver cirrhosis aeb Signs/Symptoms: ascities, edema fluid retention Malnutrition Alert Body Fat Depletion (Non-Severe) Mild Depletion Muscle Mass (Non-Severe) Mild Depletion Intervention/Recommendation Comments 1. Recommend low sodium diet, when BP stabilizes, to aid in liver cirrhosis, fluid retention, CKD. Discussed with RN JUN Licea expressed to keep regular diet for now due to low BP. 2. Provided nutrition education on alcohol vs malnutrition, low sodium vs fluid retention. Pt understood and was receptive. 3. PO intake inadequate yesterday. Write explained importance of nutrition especially likeliness of chronic malnutrition. Pt agreed and motivated. Expected Outcomes/Goals Expected Outcomes/Goals 1. PO intake to meet at least 75% of esitmated nutritional needs.
[2016-12-03] MEDS: Lactulose 10 Gm/15 mL 30mL UDC PO SCH ×3 (08:56→14:47)
[2016-12-03] MEDS: Lactobacillus Rhamnosus 10 Billion CFU Capsule PO SCH (08:56)
[2016-12-03] MEDS: Levofloxacin 250 mg/50 mL Premix Bag IV SCH (08:57)
--- NOTE | 2016-12-03 10:29 | GI Progress Note ---
Subjective - Review of Systems Subjective: BM yesterday. Had 7L ascites fluid removed at paracentesis and feels less distended. Objective - Results Result Diagrams: 12/03/16 05:37 12/03/16 05:37 Recent Labs: Laboratory Last Values WBC 19.0 Th/cmm (4.8-10.8) H D 12/03/16 05:37 RBC 3.04 Mil/cmm (3.80-5.10) L 12/03/16 05:37 Hgb 11.9 gm/dL (12-16) L 12/03/16 05:37 Hct 33.8 % (41.0-60) L 12/03/16 05:37 MCV 111.8 fl (81-100) H 12/02/16 05:30 MCH 39.1 pg (27.0-31.0) H 12/03/16 05:37 MCHC Differential 35.0 pg (28.0-36.0) 12/03/16 05:37 RDW 15.7 % (11.5-20.0) 12/03/16 05:37 Plt Count 213 Th/cmm (150-400) D 12/03/16 05:37 MPV 7.3 fl 12/03/16 05:37 Neutrophils % 69.7 % (40.0-80.0) 12/02/16 05:30 Band Neutrophils % 3 % (0-10) 12/03/16 05:37 Lymphocytes % 17.4 % (20.0-50.0) L 12/02/16 05:30 Monocytes % 11.7 % (2.0-10.0) H 12/02/16 05:30 Eosinophils % 1.1 % (0.0-5.0) 12/02/16 05:30 Basophils % 0.1 % (0.0-2.0) 12/02/16 05:30 Neutrophils (Manual) 77 % (40-80) 12/03/16 05:37 Lymphocytes 12 % (20-50) L 12/03/16 05:37 Monocytes 7 % (2-10) 12/03/16 05:37 Eosinophils 1 % (0-5) 12/03/16 05:37 Nucleated RBCs 2.0 % (0-0) H 11/30/16 05:10 Toxic Granulation 1+ 11/30/16 05:10 Platelet Estimate SLIGHT DECREASED (NORMAL) 11/30/16 05:10 Platelet Morphology NORMAL (NORMAL) 11/29/16 05:52 Anisocytosis 1+ 11/29/16 05:52 Macrocytosis 1+ 11/30/16 05:10 Schistocytes 1+ 11/28/16 17:06 RBC Morph Micro Appear ABNORMAL (NORMAL) 11/30/16 05:10 Eos Smear Source URINE 11/29/16 17:10 Eos Smear Total Cells NONE SEEN (NONE SEEN) 11/29/16 17:10 Plt Count 97 Th/cmm (150-750) L 12/01/16 05:25 PT 20.1 SECONDS (9.5-11.5) H 12/02/16 05:30 INR 1.87 (0.5-1.4) H 12/02/16 05:30 PTT (Actin FS) 33.2 SECONDS (26.0-38.0) 12/01/16 05:25 Fibrinogen 195.0 mg/dL (200.0-400.0) L 12/01/16 05:25 D-Dimer 2230 ng/mL (100-400) H 12/01/16 05:25 Sodium 129 mEq/L (136-145) L 12/03/16 05:37 Potassium 3.5 mEq/L (3.5-5.1) 12/03/16 05:37 Chloride 94 mEq/L (98-107) L 12/03/16 05:37 Carbon Dioxide 28.5 mEq/L (21.0-31.0) 12/03/16 05:37 Anion Gap 10.0 (7.0-16.0) 12/03/16 05:37 BUN 28 mg/dL (7-25) H 12/03/16 05:37 Creatinine 0.9 mg/dL (0.6-1.2) 12/03/16 05:37 Est GFR ( Amer) > 60.0 ml/min (>90) 12/03/16 05:37 Est GFR (Non-Af Amer) > 60.0 ml/min 12/03/16 05:37 BUN/Creatinine Ratio 31.1 12/03/16 05:37 Glucose 119 mg/dL (70-105) H 12/03/16 05:37 Whole Bld Lactic Acid 2.52 mmol/L (0.60-1.99) H* 11/28/16 19:12 Uric Acid 12.1 mg/dL (2.3-6.6) H 11/30/16 05:10 Calcium 8.7 mg/dL (8.6-10.3) 12/03/16 05:37 Phosphorus 1.1 mg/dL (2.5-5.0) L 12/01/16 05:25 Magnesium 2.0 mg/dL (1.9-2.7) 12/01/16 05:25 Total Bilirubin 11.4 mg/dL (0.3-1.0) H 12/02/16 05:30 AST 159 U/L (13-39) H 12/02/16 05:30 ALT 109 U/L (7-52) H 12/02/16 05:30 Alkaline Phosphatase 212 U/L (34-104) H 12/02/16 05:30 Ammonia 50 umol/L (16-53) 12/02/16 09:55 Creatine Kinase 697 U/L (30-223) H 11/28/16 17:06 CK-MB (CK-2) 9.7 ng/mL (0.6-6.3) H 11/28/16 17:06 Total Protein 5.3 gm/dL (6.0-8.3) L 12/02/16 05:30 Albumin 2.9 gm/dL (3.7-5.3) L 12/02/16 05:30 Globulin 2.4 gm/dL 12/02/16 05:30 Albumin/Globulin Ratio 1.2 (1.0-1.8) 12/02/16 05:30 Tumor Marker AFP 6.3 ng/mL (0.0-8.3) 12/01/16 05:25 Urine Source CLEAN C 11/28/16 17:52 Urine Color YELLOW 11/28/16 17:52 Urine Clarity CLOUDY (CLEAR) H 11/28/16 17:52 Urine pH 5.5 (4.6 - 8.0) 11/28/16 17:52 Ur Specific [place] 1.025 (1.005-1.030) 11/28/16 17:52 Urine Protein 30 mg/dL (NEGATIVE) H 11/28/16 17:52 Urine Glucose (UA) NEGATIVE mg/dL (NEGATIVE) 11/28/16 17:52 Urine Ketones 15 mg/dL (NEGATIVE) H 11/28/16 17:52 Urine Blood LARGE (NEGATIVE) H 11/28/16 17:52 Urine Nitrate NEGATIVE (NEGATIVE) 11/28/16 17:52 Urine Bilirubin MODERATE (NEGATIVE) H 11/28/16 17:52 Urine Urobilinogen 1.0 E.U./dL (0.2 - 1.0) 11/28/16 17:52 Ur Leukocyte Esterase MODERATE (NEGATIVE) H 11/28/16 17:52 Urine RBC 2-5 /hpf (0-5) 11/28/16 17:52 Urine WBC 50-100 /hpf (0-5) H 11/28/16 17:52 Ur Epithelial Cells MODERATE /lpf (FEW) 11/28/16 17:52 Urine Bacteria MODERATE /hpf (NONE SEEN) 11/28/16 17:52 Ur Random Sodium 8 mmol/L 11/29/16 17:10 Urine Creatinine 119.0 mg/dl (28.0-217.0) 11/29/16 17:10 Fluid Source PARACENTHESIS 12/02/16 12:30 Fluid Color YELLOW 12/02/16 12:30 Fluid Appearance CLEAR 12/02/16 12:30 Fluid WBC 36 /cumm 12/02/16 12:30 Fluid RBC 213 /cumm 12/02/16 12:30 Fluid Neutrophils 54 % 12/02/16 12:30 Fluid Lymphocytes 42 % 12/02/16 12:30 Fluid Monocytes 4 % 12/02/16 12:30 Fluid Eosinophils 0 % 12/02/16 12:30 Fluid Basophils 0 % 12/02/16 12:30 Fluid Total Protein 1.3 g/dL 12/02/16 12:30 Hepatitis A IgM Ab Negative (Negative) 11/29/16 05:52 Hep Bs Antigen Negative (Negative) 11/29/16 05:52 Hep B Core IgM Ab Negative (Negative) 11/29/16 05:52 Hepatitis C Antibody <0.1 s/co ratio (0.0-0.9) 11/29/16 05:52 HIV 1&2 Antibody Screen Non Reactive (Non Reactive) 12/01/16 05:25 - Physical Exam Vitals and I&O: Vital Signs Temp 98.2 F 12/03/16 08:00 Pulse 92 12/03/16 08:56 Resp 18 12/03/16 08:13 BP 103/59 12/03/16 08:56 Pulse Ox 96 12/03/16 08:13 Intake & Output 12/02/16 12/03/16 12/03/16 18:59 06:59 18:59 Intake Total 50 500 Output Total 500 Balance 50 0 Weight (lbs) 66.542 kg Intake: Intake, IV Amount 50 Levofloxacin 250mg/50mL 50 250 mg In 50 ml @ 50 mls/ hr IV Q24HR [facility] Rx#: [id number] Oral 500 Output: Urine 500 Active Medications: Current Medications Furosemide (Lasix) 40 mg PO DAILY [facility] Stop: 01/29/17 13:59 Last Admin: 12/03/16 08:56 Dose: 40 mg Levofloxacin (Levaquin Pb) 250 mg in 50 mls @ 50 mls/hr IV Q24HR [facility] Stop: 01/29/17 08:59 Last Admin: 12/03/16 08:57 Dose: 50 mls/hr Lactobacillus Rhamnosus (Culturelle) 1 each PO DAILY [facility] Stop: 01/31/17 08:59 Last Admin: 12/03/16 08:56 Dose: 1 each Lactulose (Cephulac) 30 gm PO TID [facility] Stop: 01/31/17 13:59 Last Admin: 12/03/16 09:11 Dose: Not Given Miscellaneous (Probiotic Screen) 1 ea MC PRN PRN PRN Reason: PROTOCOL Stop: 01/30/17 16:44 Morphine Sulfate (Morphine) 1 mg IVP Q6H PRN PRN Reason: Pain (Moderate) Stop: 01/28/17 11:14 Pantoprazole Sodium (Protonix) 40 mg IVP QDAC [facility] Stop: 01/31/17 13:59 Last Admin: 12/03/16 06:41 Dose: 40 mg Pentoxifylline (Trental) 400 mg PO TIDWM [facility] Stop: 01/30/17 16:59 Last Admin: 12/03/16 08:56 Dose: 400 mg Spironolactone (Aldactone) 50 mg PO BID [facility] Stop: 01/29/17 16:59 Last Admin: 12/03/16 08:56 Dose: 50 mg General: Alert, Oriented x3, No acute distress HEENT: Atraumatic, PERRLA, EOMI, Other (scleral icterus) Neck: Supple Cardiovascular: Regular rate, Normal S1, Normal S2 Lungs: Clear to auscultation Abdomen: Bowel sounds, Soft, Hepatomegaly, Distended Extremities: no Clubbing, no Cyanosis, no Edema Neurological: Sensation intact Skin: no Rash Psych/Mental Status: Mood NL - Procedures Procedures: Procedures Procedure Code Date ABD PARACENTESIS W/IMAGING 58775 11/28/16 DRAINAGE OF PERITONEAL CAVITY, PERCUTANEOUS APPROACH [id number] 11/28/16 Assessment/Plan - Problem List Patient Problems: All Active Problems Acute on chronic alcoholic liver disease (Acute) K70.9 Anemia (Acute) D64.9 Chronic kidney disease (Acute) N18.9 Coagulopathy (Acute) Hypokalemia (Acute) E87.6 Sepsis (Acute) UTI (urinary tract infection) (Acute) - Assessment Assessment: # Alcoholic hepatitis # Likely underlying cirrhosis decompensated by ascites # UTI on abx Alc hep with discriminant function at > 32. However, pt has concurrent UTI on abx therapy, and her LFTs are improving. Thus, will not use prednisilone now. Instead, will start trental 400mg tid for 28 days. Pt has ascites, and had 9L removed [place]. Now s/p 7L removal ascites fluid on 12/02, no SBP. She is on lasix 40 and aldactone 100, and can consider increasing this as electrolytes allow. Pt will need underlying cirrhosis evaluation and EGD, although this can be done after she abstains from EtOH for extended period of time, likely outpt Tbili continues to rise, which is observed with alcoholic liver disease. However , will need to ensure there is no concurrent obstructive biliary pathology as well, and thus will obtain MRCP Plan: - aldactone 100mg and lasix 40mg po, increase as electrolytes and Cr allow tomorrow. Na down to 129 today. Will increase to aldactone 150 and lasix 60. If we cannot increase diuretics, she may ultimately need outpt paracentesis once d/ c-ed - trental 400mg tid for 28 days - abstain from all EtOH - MRCP as above, pending today - lactulose to relieve constipation and HE - strict 2g sodium diet after she returns from MRCP
--- NOTE | 2016-12-03 11:40 | Infectious Disease Prog Note ---
Infectious Disease Subjective - Review of Systems Service Date: 12/03/16 Subjective: No fever no chills. Still complains of generalized weakness. Infectious Disease Objective - Results Result Diagrams: 12/03/16 05:37 12/03/16 05:37 Recent Labs: Laboratory Last Values WBC 19.0 Th/cmm (4.8-10.8) H D 12/03/16 05:37 RBC 3.04 Mil/cmm (3.80-5.10) L 12/03/16 05:37 Hgb 11.9 gm/dL (12-16) L 12/03/16 05:37 Hct 33.8 % (41.0-60) L 12/03/16 05:37 MCV 111.8 fl (81-100) H 12/02/16 05:30 MCH 39.1 pg (27.0-31.0) H 12/03/16 05:37 MCHC Differential 35.0 pg (28.0-36.0) 12/03/16 05:37 RDW 15.7 % (11.5-20.0) 12/03/16 05:37 Plt Count 213 Th/cmm (150-400) D 12/03/16 05:37 MPV 7.3 fl 12/03/16 05:37 Neutrophils % 69.7 % (40.0-80.0) 12/02/16 05:30 Band Neutrophils % 3 % (0-10) 12/03/16 05:37 Lymphocytes % 17.4 % (20.0-50.0) L 12/02/16 05:30 Monocytes % 11.7 % (2.0-10.0) H 12/02/16 05:30 Eosinophils % 1.1 % (0.0-5.0) 12/02/16 05:30 Basophils % 0.1 % (0.0-2.0) 12/02/16 05:30 Neutrophils (Manual) 77 % (40-80) 12/03/16 05:37 Lymphocytes 12 % (20-50) L 12/03/16 05:37 Monocytes 7 % (2-10) 12/03/16 05:37 Eosinophils 1 % (0-5) 12/03/16 05:37 Nucleated RBCs 2.0 % (0-0) H 11/30/16 05:10 Toxic Granulation 1+ 11/30/16 05:10 Platelet Estimate SLIGHT DECREASED (NORMAL) 11/30/16 05:10 Platelet Morphology NORMAL (NORMAL) 11/29/16 05:52 Anisocytosis 1+ 11/29/16 05:52 Macrocytosis 1+ 11/30/16 05:10 Schistocytes 1+ 11/28/16 17:06 RBC Morph Micro Appear ABNORMAL (NORMAL) 11/30/16 05:10 Eos Smear Source URINE 11/29/16 17:10 Eos Smear Total Cells NONE SEEN (NONE SEEN) 11/29/16 17:10 Plt Count 97 Th/cmm (150-750) L 12/01/16 05:25 PT 20.1 SECONDS (9.5-11.5) H 12/02/16 05:30 INR 1.87 (0.5-1.4) H 12/02/16 05:30 PTT (Actin FS) 33.2 SECONDS (26.0-38.0) 12/01/16 05:25 Fibrinogen 195.0 mg/dL (200.0-400.0) L 12/01/16 05:25 D-Dimer 2230 ng/mL (100-400) H 12/01/16 05:25 Sodium 129 mEq/L (136-145) L 12/03/16 05:37 Potassium 3.5 mEq/L (3.5-5.1) 12/03/16 05:37 Chloride 94 mEq/L (98-107) L 12/03/16 05:37 Carbon Dioxide 28.5 mEq/L (21.0-31.0) 12/03/16 05:37 Anion Gap 10.0 (7.0-16.0) 12/03/16 05:37 BUN 28 mg/dL (7-25) H 12/03/16 05:37 Creatinine 0.9 mg/dL (0.6-1.2) 12/03/16 05:37 Est GFR ( Amer) > 60.0 ml/min (>90) 12/03/16 05:37 Est GFR (Non-Af Amer) > 60.0 ml/min 12/03/16 05:37 BUN/Creatinine Ratio 31.1 12/03/16 05:37 Glucose 119 mg/dL (70-105) H 12/03/16 05:37 Whole Bld Lactic Acid 2.52 mmol/L (0.60-1.99) H* 11/28/16 19:12 Uric Acid 12.1 mg/dL (2.3-6.6) H 11/30/16 05:10 Calcium 8.7 mg/dL (8.6-10.3) 12/03/16 05:37 Phosphorus 1.1 mg/dL (2.5-5.0) L 12/01/16 05:25 Magnesium 2.0 mg/dL (1.9-2.7) 12/01/16 05:25 Total Bilirubin 11.4 mg/dL (0.3-1.0) H 12/02/16 05:30 AST 159 U/L (13-39) H 12/02/16 05:30 ALT 109 U/L (7-52) H 12/02/16 05:30 Alkaline Phosphatase 212 U/L (34-104) H 12/02/16 05:30 Ammonia 50 umol/L (16-53) 12/02/16 09:55 Creatine Kinase 697 U/L (30-223) H 11/28/16 17:06 CK-MB (CK-2) 9.7 ng/mL (0.6-6.3) H 11/28/16 17:06 Total Protein 5.3 gm/dL (6.0-8.3) L 12/02/16 05:30 Albumin 2.9 gm/dL (3.7-5.3) L 12/02/16 05:30 Globulin 2.4 gm/dL 12/02/16 05:30 Albumin/Globulin Ratio 1.2 (1.0-1.8) 12/02/16 05:30 Tumor Marker AFP 6.3 ng/mL (0.0-8.3) 12/01/16 05:25 Urine Source CLEAN C 11/28/16 17:52 Urine Color YELLOW 11/28/16 17:52 Urine Clarity CLOUDY (CLEAR) H 11/28/16 17:52 Urine pH 5.5 (4.6 - 8.0) 11/28/16 17:52 Ur Specific [place] 1.025 (1.005-1.030) 11/28/16 17:52 Urine Protein 30 mg/dL (NEGATIVE) H 11/28/16 17:52 Urine Glucose (UA) NEGATIVE mg/dL (NEGATIVE) 11/28/16 17:52 Urine Ketones 15 mg/dL (NEGATIVE) H 11/28/16 17:52 Urine Blood LARGE (NEGATIVE) H 11/28/16 17:52 Urine Nitrate NEGATIVE (NEGATIVE) 11/28/16 17:52 Urine Bilirubin MODERATE (NEGATIVE) H 11/28/16 17:52 Urine Urobilinogen 1.0 E.U./dL (0.2 - 1.0) 11/28/16 17:52 Ur Leukocyte Esterase MODERATE (NEGATIVE) H 11/28/16 17:52 Urine RBC 2-5 /hpf (0-5) 11/28/16 17:52 Urine WBC 50-100 /hpf (0-5) H 11/28/16 17:52 Ur Epithelial Cells MODERATE /lpf (FEW) 11/28/16 17:52 Urine Bacteria MODERATE /hpf (NONE SEEN) 11/28/16 17:52 Ur Random Sodium 8 mmol/L 11/29/16 17:10 Urine Creatinine 119.0 mg/dl (28.0-217.0) 11/29/16 17:10 Fluid Source PARACENTHESIS 12/02/16 12:30 Fluid Color YELLOW 12/02/16 12:30 Fluid Appearance CLEAR 12/02/16 12:30 Fluid WBC 36 /cumm 12/02/16 12:30 Fluid RBC 213 /cumm 12/02/16 12:30 Fluid Neutrophils 54 % 12/02/16 12:30 Fluid Lymphocytes 42 % 12/02/16 12:30 Fluid Monocytes 4 % 12/02/16 12:30 Fluid Eosinophils 0 % 12/02/16 12:30 Fluid Basophils 0 % 12/02/16 12:30 Fluid Total Protein 1.3 g/dL 12/02/16 12:30 Hepatitis A IgM Ab Negative (Negative) 11/29/16 05:52 Hep Bs Antigen Negative (Negative) 11/29/16 05:52 Hep B Core IgM Ab Negative (Negative) 11/29/16 05:52 Hepatitis C Antibody <0.1 s/co ratio (0.0-0.9) 11/29/16 05:52 HIV 1&2 Antibody Screen Non Reactive (Non Reactive) 12/01/16 05:25 - Physical Exam Vitals and I&O: Vital Signs Temp 98.2 F 12/03/16 08:00 Pulse 92 12/03/16 08:56 Resp 18 12/03/16 08:13 BP 103/59 12/03/16 08:56 Pulse Ox 96 12/03/16 08:13 Intake & Output 12/02/16 12/03/16 12/03/16 18:59 06:59 18:59 Intake Total 50 500 50 Output Total 500 Balance 50 0 50 Weight (lbs) 66.542 kg Intake: Intake, IV Amount 50 50 Levofloxacin 250mg/50mL 50 50 250 mg In 50 ml @ 50 mls/ hr IV Q24HR [facility] Rx#: [id number] Oral 500 Output: Urine 500 Active Medications: Current Medications Furosemide (Lasix) 60 mg PO DAILY [facility] Stop: 01/29/17 13:59 Levofloxacin (Levaquin Pb) 250 mg in 50 mls @ 50 mls/hr IV Q24HR [facility] Stop: 01/29/17 08:59 Last Infusion: 12/03/16 10:36 Dose: Infused Lactobacillus Rhamnosus (Culturelle) 1 each PO DAILY [facility] Stop: 01/31/17 08:59 Last Admin: 12/03/16 08:56 Dose: 1 each Lactulose (Cephulac) 30 gm PO TID [facility] Stop: 01/31/17 13:59 Last Admin: 12/03/16 09:11 Dose: Not Given Miscellaneous (Probiotic Screen) 1 ea MC PRN PRN PRN Reason: PROTOCOL Stop: 01/30/17 16:44 Morphine Sulfate (Morphine) 1 mg IVP Q6H PRN PRN Reason: Pain (Moderate) Stop: 01/28/17 11:14 Pantoprazole Sodium (Protonix) 40 mg IVP QDAC [facility] Stop: 01/31/17 13:59 Last Admin: 12/03/16 06:41 Dose: 40 mg Pentoxifylline (Trental) 400 mg PO TIDWM [facility] Stop: 01/30/17 16:59 Last Admin: 12/03/16 08:56 Dose: 400 mg Spironolactone (Aldactone) 150 mg PO DAILY [facility] Stop: 02/02/17 08:59 General: no acute distress, cachectic HEENT: atraumatic, normocephalic Neck: supple, no thyromegaly Cardiovascular: S1S2, regular, systolic murmur Lungs: clear to auscultation bilaterally, clear to percussion Abdomen: soft, ascites, no tender, no hepatomegaly Extremities: no cyanosis, no clubbing, no edema Neurological: awake, alert - Procedures Procedures: Procedures Procedure Code Date ABD PARACENTESIS W/IMAGING 78493 11/28/16 DRAINAGE OF PERITONEAL CAVITY, PERCUTANEOUS APPROACH [id number] 11/28/16 Infectious Disease Assmt/Plan - Problem List Patient Problems: All Active Problems Acute on chronic alcoholic liver disease (Acute) K70.9 Anemia (Acute) D64.9 Chronic kidney disease (Acute) N18.9 Coagulopathy (Acute) Hypokalemia (Acute) E87.6 Sepsis (Acute) UTI (urinary tract infection) (Acute) - Assessment Assessment: 1. UTI. Escherichia coli. 2. Thrombocytopenia. 3. Coagulopathy secondary to liver disease. 4. History is liver disease. 5. Jaundice. 6. Anemia, rule out GI bleed. 7. Alcohol abuse. 8. Escherichia coli infection. - Plan Plan: Continue Levaquin for 10 days. Nutritional Asmnt/Malnutr-PDOC - Dietary Evaluation Malnutrition Findings (Please click <Entered> for more info): Nutritional Asmnt/Malnutrition Start: 11/30/16 15: 59 Text: Status: Complete Freq: Document 11/30/16 15:59 GSUN (Rec: 11/30/16 16:23 GSUN [email or web address]) Nutritional Asmnt/Malnutrition Patient General Information Nutritional Screening High Risk Screening Diagnosis Acute alcoholic liver cirrhosis, anemia, sepsis, CKD , UTI Pertinent Medical Hx/Surgical Hx Alcoholic liver cirrhosis Subjective Information 61 year old female. Pt was sitting upright, pleasant. Pt noted with 2+ pitting to lower extremities and abdomen ascities large. Provided nutrition education, pt was receptive. Mild fat muscle wasting to chest and shoudlers . Spoke to JUN Licea RN stated pt apparently had fluids pulled out from ascities prior to adm, currently appear to be accumulating. Discussed low sodium diet with RN RN expressed to keep pt on regular diet for now due to low BP. Avg PO intake 0-25% of meals yesterday, pt did not eleborate, stated usualyl fair appetite. Current Diet Order/ Nutrition Support Regular Pertinent Medications Lasix, Levaquin, Magnesium Sulfate, Morphine Pertinent Labs 11/30: potassium 3.3L, BUN 41H, creaitnine 1.5H, glucose 132H , phosphorus 0.4L, AST 289H, ALT 125H, alkaline phosphatase 181H Nutritional Hx/Data Height 1.6 m Height (Calculated Centimeters) 160.0 Current Weight (lbs) 76.793 kg Weight (Calculated Kilograms) 76.8 Weight (Calculated Grams) 81081.2 [place] Body Weight 115 GI Symptoms Cultural/Ethnic/Caodaism Belief Pt eats out a lot due to kitchen currently preoccupied by mother's passing. Pt is aware and mindful that outside foods may be high in sodium. Skin Integrity/Comment: Nura 16. Abrasions to knees, rash to legs, skin tear right elbow. Current %PO Negligible < 25% Estimated Nutritional Goals Calories/Kcals/Kg IBW 115lb/52.3kg Kcals Calculated 1569-1831kcal (30-35kcal/kg) Protein Calculated 52-73g (1-1.4g/kg) Fluid: ml per MD Nutritional Problem 3. Problem Problem Impaired nutrient utilization related to Etiology CKD aeb Signs/Symptoms: 11/30: BUN 41H, creatinine 1.5H 2. Problem Problem Inadequate PO intake related to Etiology unknown aeb Signs/Symptoms: 0-25% of meals on 11/29 1. Problem Problem Altered GI function related to Etiology liver cirrhosis aeb Signs/Symptoms: ascities, edema fluid retention Malnutrition Alert Body Fat Depletion (Non-Severe) Mild Depletion Muscle Mass (Non-Severe) Mild Depletion Intervention/Recommendation Comments 1. Recommend low sodium diet, when BP stabilizes, to aid in liver cirrhosis, fluid retention, CKD. Discussed with RN JUN Licea expressed to keep regular diet for now due to low BP. 2. Provided nutrition education on alcohol vs malnutrition, low sodium vs fluid retention. Pt understood and was receptive. 3. PO intake inadequate yesterday. Write explained importance of nutrition especially likeliness of chronic malnutrition. Pt agreed and motivated. Expected Outcomes/Goals Expected Outcomes/Goals 1. PO intake to meet at least 75% of esitmated nutritional needs.
[2016-12-03 12:55] LABS: MEAN CELL VOLUME 111.1 fl (81-100)
--- NOTE | 2016-12-03 18:10 | General Progress Note ---
Subjective - Review of Systems Service Date: 12/03/16 Subjective: alert, more comfortable Objective - Results Result Diagrams: 12/03/16 05:37 12/03/16 05:37 Recent Labs: Laboratory Last Values WBC 19.0 Th/cmm (4.8-10.8) H D 12/03/16 05:37 RBC 3.04 Mil/cmm (3.80-5.10) L 12/03/16 05:37 Hgb 11.9 gm/dL (12-16) L 12/03/16 05:37 Hct 33.8 % (41.0-60) L 12/03/16 05:37 MCV 111.1 fl (81-100) H 12/03/16 05:37 MCH 39.1 pg (27.0-31.0) H 12/03/16 05:37 MCHC Differential 35.0 pg (28.0-36.0) 12/03/16 05:37 RDW 15.7 % (11.5-20.0) 12/03/16 05:37 Plt Count 213 Th/cmm (150-400) D 12/03/16 05:37 MPV 7.3 fl 12/03/16 05:37 Neutrophils % 69.7 % (40.0-80.0) 12/02/16 05:30 Band Neutrophils % 3 % (0-10) 12/03/16 05:37 Lymphocytes % 17.4 % (20.0-50.0) L 12/02/16 05:30 Monocytes % 11.7 % (2.0-10.0) H 12/02/16 05:30 Eosinophils % 1.1 % (0.0-5.0) 12/02/16 05:30 Basophils % 0.1 % (0.0-2.0) 12/02/16 05:30 Neutrophils (Manual) 77 % (40-80) 12/03/16 05:37 Lymphocytes 12 % (20-50) L 12/03/16 05:37 Monocytes 7 % (2-10) 12/03/16 05:37 Eosinophils 1 % (0-5) 12/03/16 05:37 Nucleated RBCs 2.0 % (0-0) H 11/30/16 05:10 Toxic Granulation 1+ 11/30/16 05:10 Platelet Estimate SLIGHT DECREASED (NORMAL) 11/30/16 05:10 Platelet Morphology NORMAL (NORMAL) 11/29/16 05:52 Anisocytosis 1+ 11/29/16 05:52 Macrocytosis 1+ 11/30/16 05:10 Schistocytes 1+ 11/28/16 17:06 RBC Morph Micro Appear ABNORMAL (NORMAL) 11/30/16 05:10 Eos Smear Source URINE 11/29/16 17:10 Eos Smear Total Cells NONE SEEN (NONE SEEN) 11/29/16 17:10 Plt Count 97 Th/cmm (150-750) L 12/01/16 05:25 PT 20.1 SECONDS (9.5-11.5) H 12/02/16 05:30 INR 1.87 (0.5-1.4) H 12/02/16 05:30 PTT (Actin FS) 33.2 SECONDS (26.0-38.0) 12/01/16 05:25 Fibrinogen 195.0 mg/dL (200.0-400.0) L 12/01/16 05:25 D-Dimer 2230 ng/mL (100-400) H 12/01/16 05:25 Sodium 129 mEq/L (136-145) L 12/03/16 05:37 Potassium 3.5 mEq/L (3.5-5.1) 12/03/16 05:37 Chloride 94 mEq/L (98-107) L 12/03/16 05:37 Carbon Dioxide 28.5 mEq/L (21.0-31.0) 12/03/16 05:37 Anion Gap 10.0 (7.0-16.0) 12/03/16 05:37 BUN 28 mg/dL (7-25) H 12/03/16 05:37 Creatinine 0.9 mg/dL (0.6-1.2) 12/03/16 05:37 Est GFR ( Amer) > 60.0 ml/min (>90) 12/03/16 05:37 Est GFR (Non-Af Amer) > 60.0 ml/min 12/03/16 05:37 BUN/Creatinine Ratio 31.1 12/03/16 05:37 Glucose 119 mg/dL (70-105) H 12/03/16 05:37 Whole Bld Lactic Acid 2.52 mmol/L (0.60-1.99) H* 11/28/16 19:12 Uric Acid 12.1 mg/dL (2.3-6.6) H 11/30/16 05:10 Calcium 8.7 mg/dL (8.6-10.3) 12/03/16 05:37 Phosphorus 1.1 mg/dL (2.5-5.0) L 12/01/16 05:25 Magnesium 2.0 mg/dL (1.9-2.7) 12/01/16 05:25 Total Bilirubin 11.4 mg/dL (0.3-1.0) H 12/02/16 05:30 AST 159 U/L (13-39) H 12/02/16 05:30 ALT 109 U/L (7-52) H 12/02/16 05:30 Alkaline Phosphatase 212 U/L (34-104) H 12/02/16 05:30 Ammonia 50 umol/L (16-53) 12/02/16 09:55 Creatine Kinase 697 U/L (30-223) H 11/28/16 17:06 CK-MB (CK-2) 9.7 ng/mL (0.6-6.3) H 11/28/16 17:06 Total Protein 5.3 gm/dL (6.0-8.3) L 12/02/16 05:30 Albumin 2.9 gm/dL (3.7-5.3) L 12/02/16 05:30 Globulin 2.4 gm/dL 12/02/16 05:30 Albumin/Globulin Ratio 1.2 (1.0-1.8) 12/02/16 05:30 Tumor Marker AFP 6.3 ng/mL (0.0-8.3) 12/01/16 05:25 Urine Source CLEAN C 11/28/16 17:52 Urine Color YELLOW 11/28/16 17:52 Urine Clarity CLOUDY (CLEAR) H 11/28/16 17:52 Urine pH 5.5 (4.6 - 8.0) 11/28/16 17:52 Ur Specific [place] 1.025 (1.005-1.030) 11/28/16 17:52 Urine Protein 30 mg/dL (NEGATIVE) H 11/28/16 17:52 Urine Glucose (UA) NEGATIVE mg/dL (NEGATIVE) 11/28/16 17:52 Urine Ketones 15 mg/dL (NEGATIVE) H 11/28/16 17:52 Urine Blood LARGE (NEGATIVE) H 11/28/16 17:52 Urine Nitrate NEGATIVE (NEGATIVE) 11/28/16 17:52 Urine Bilirubin MODERATE (NEGATIVE) H 11/28/16 17:52 Urine Urobilinogen 1.0 E.U./dL (0.2 - 1.0) 11/28/16 17:52 Ur Leukocyte Esterase MODERATE (NEGATIVE) H 11/28/16 17:52 Urine RBC 2-5 /hpf (0-5) 11/28/16 17:52 Urine WBC 50-100 /hpf (0-5) H 11/28/16 17:52 Ur Epithelial Cells MODERATE /lpf (FEW) 11/28/16 17:52 Urine Bacteria MODERATE /hpf (NONE SEEN) 11/28/16 17:52 Ur Random Sodium 8 mmol/L 11/29/16 17:10 Urine Creatinine 119.0 mg/dl (28.0-217.0) 11/29/16 17:10 Fluid Source PARACENTHESIS 12/02/16 12:30 Fluid Color YELLOW 12/02/16 12:30 Fluid Appearance CLEAR 12/02/16 12:30 Fluid WBC 36 /cumm 12/02/16 12:30 Fluid RBC 213 /cumm 12/02/16 12:30 Fluid Neutrophils 54 % 12/02/16 12:30 Fluid Lymphocytes 42 % 12/02/16 12:30 Fluid Monocytes 4 % 12/02/16 12:30 Fluid Eosinophils 0 % 12/02/16 12:30 Fluid Basophils 0 % 12/02/16 12:30 Fluid Total Protein 1.3 g/dL 12/02/16 12:30 Hepatitis A IgM Ab Negative (Negative) 11/29/16 05:52 Hep Bs Antigen Negative (Negative) 11/29/16 05:52 Hep B Core IgM Ab Negative (Negative) 11/29/16 05:52 Hepatitis C Antibody <0.1 s/co ratio (0.0-0.9) 11/29/16 05:52 HIV 1&2 Antibody Screen Non Reactive (Non Reactive) 12/01/16 05:25 - Physical Exam Vitals and I&O: Vital Signs Temp 97.8 F 12/03/16 15:39 Pulse 98 12/03/16 15:39 Resp 17 12/03/16 15:39 BP 108/70 12/03/16 15:39 Pulse Ox 99 12/03/16 15:39 Intake & Output 12/02/16 12/03/16 12/03/16 18:59 06:59 18:59 Intake Total 50 500 50 Output Total 500 Balance 50 0 50 Weight (lbs) 66.542 kg Intake: Intake, IV Amount 50 50 Levofloxacin 250mg/50mL 50 50 250 mg In 50 ml @ 50 mls/ hr IV Q24HR [facility] Rx#: [id number] Oral 500 Output: Urine 500 Active Medications: Current Medications Furosemide (Lasix) 60 mg PO DAILY [facility] Stop: 01/29/17 13:59 Levofloxacin (Levaquin Pb) 250 mg in 50 mls @ 50 mls/hr IV Q24HR [facility] Stop: 01/29/17 08:59 Last Infusion: 12/03/16 10:36 Dose: Infused Lactobacillus Rhamnosus (Culturelle) 1 each PO DAILY [facility] Stop: 01/31/17 08:59 Last Admin: 12/03/16 08:56 Dose: 1 each Lactulose (Cephulac) 30 gm PO TID [facility] Stop: 01/31/17 13:59 Last Admin: 12/03/16 14:47 Dose: 30 gm Miscellaneous (Probiotic Screen) 1 ea MC PRN PRN PRN Reason: PROTOCOL Stop: 01/30/17 16:44 Morphine Sulfate (Morphine) 1 mg IVP Q6H PRN PRN Reason: Pain (Moderate) Stop: 01/28/17 11:14 Pantoprazole Sodium (Protonix) 40 mg IVP QDAC [facility] Stop: 01/31/17 13:59 Last Admin: 12/03/16 06:41 Dose: 40 mg Pentoxifylline (Trental) 400 mg PO TIDWM [facility] Stop: 01/30/17 16:59 Last Admin: 12/03/16 17:56 Dose: 400 mg Spironolactone (Aldactone) 150 mg PO DAILY [facility] Stop: 02/02/17 08:59 General: Alert, Oriented x3, No acute distress HEENT: Atraumatic, PERRLA, EOMI, Other (scleral icterus) Neck: Supple Cardiovascular: Regular rate, Normal S1, Normal S2 Lungs: Clear to auscultation Abdomen: Bowel sounds, Soft, Hepatomegaly, Distended Extremities: no Clubbing, no Cyanosis, no Edema Neurological: Sensation intact Skin: no Rash Psych/Mental Status: Mood NL - Procedures Procedures: Procedures Procedure Code Date ABD PARACENTESIS W/IMAGING 13950 11/28/16 DRAINAGE OF PERITONEAL CAVITY, PERCUTANEOUS APPROACH [id number] 11/28/16 Assessment/Plan - Problem List Patient Problems: All Active Problems Acute on chronic alcoholic liver disease (Acute) K70.9 Anemia (Acute) D64.9 Chronic kidney disease (Acute) N18.9 Coagulopathy (Acute) Hypokalemia (Acute) E87.6 Sepsis (Acute) UTI (urinary tract infection) (Acute) - Assessment Assessment: KATLIN on CKD r/o HRS Hypotension 2nd to decrease ECV Coagulopathy 2nd Liver ds., DIC CLD Alcohol Cirrhosis/ Fatty Liver Cx UTI Ascites Severe Malnutrition - Plan Plan: Current Medications Furosemide (Lasix) 40 mg PO DAILY [facility] Stop: 01/29/17 13:59 Last Admin: 12/01/16 08:31 Dose: 40 mg Levofloxacin (Levaquin Pb) 250 mg in 50 mls @ 50 mls/hr IV Q24HR [facility] Stop: 01/29/17 08:59 Last Infusion: 12/01/16 09:26 Dose: Infused Lactobacillus Rhamnosus (Culturelle) 1 each PO DAILY [facility] Stop: 01/31/17 08:59 Miscellaneous (Probiotic Screen) 1 ea MC PRN PRN PRN Reason: PROTOCOL Stop: 01/30/17 16:44 Morphine Sulfate (Morphine) 1 mg IVP Q6H PRN PRN Reason: Pain (Moderate) Stop: 01/28/17 11:14 Pentoxifylline (Trental) 400 mg PO TIDWM [facility] Stop: 01/30/17 16:59 Last Admin: 12/01/16 16:48 Dose: 400 mg Spironolactone (Aldactone) 50 mg PO BID [facility] Stop: 01/29/17 16:59 Last Admin: 12/01/16 16:42 Dose: 50 mg Lasix & aldactone increased f/u electrolytes had paracentesis & linda. 7 L was obtained BUN down to 28 Lab - Result Diagrams 12/03/16 05:37 12/03/16 05:37 Nutritional Asmnt/Malnutr-PDOC - Dietary Evaluation Malnutrition Findings (Please click <Entered> for more info): Nutritional Asmnt/Malnutrition Start: 11/30/16 15: 59 Text: Status: Complete Freq: Document 11/30/16 15:59 GSUN (Rec: 11/30/16 16:23 [email or web address] [email or web address]) Nutritional Asmnt/Malnutrition Patient General Information Nutritional Screening High Risk Screening Diagnosis Acute alcoholic liver cirrhosis, anemia, sepsis, CKD , UTI Pertinent Medical Hx/Surgical Hx Alcoholic liver cirrhosis Subjective Information 61 year old female. Pt was sitting upright, pleasant. Pt noted with 2+ pitting to lower extremities and abdomen ascities large. Provided nutrition education, pt was receptive. Mild fat muscle wasting to chest and shoudlers . Spoke to RN JUN Licea stated pt apparently had fluids pulled out from ascities prior to adm, currently appear to be accumulating. Discussed low sodium diet with JUN BARAHONA expressed to keep pt on regular diet for now due to low BP. Avg PO intake 0-25% of meals yesterday, pt did not eleborate, stated usualyl fair appetite. Current Diet Order/ Nutrition Support Regular Pertinent Medications Lasix, Levaquin, Magnesium Sulfate, Morphine Pertinent Labs 11/30: potassium 3.3L, BUN 41H, creaitnine 1.5H, glucose 132H , phosphorus 0.4L, AST 289H, ALT 125H, alkaline phosphatase 181H Nutritional Hx/Data Height 1.6 m Height (Calculated Centimeters) 160.0 Current Weight (lbs) 76.793 kg Weight (Calculated Kilograms) 76.8 Weight (Calculated Grams) 94709.2 [place] Body Weight 115 GI Symptoms Cultural/Ethnic/Zoroastrian Belief Pt eats out a lot due to kitchen currently preoccupied by mother's passing. Pt is aware and mindful that outside foods may be high in sodium. Skin Integrity/Comment: Nura 16. Abrasions to knees, rash to legs, skin tear right elbow. Current %PO Negligible < 25% Estimated Nutritional Goals Calories/Kcals/Kg IBW 115lb/52.3kg Kcals Calculated 1569-1831kcal (30-35kcal/kg) Protein Calculated 52-73g (1-1.4g/kg) Fluid: ml per MD Nutritional Problem 3. Problem Problem Impaired nutrient utilization related to Etiology CKD aeb Signs/Symptoms: 11/30: BUN 41H, creatinine 1.5H 2. Problem Problem Inadequate PO intake related to Etiology unknown aeb Signs/Symptoms: 0-25% of meals on 11/29 1. Problem Problem Altered GI function related to Etiology liver cirrhosis aeb Signs/Symptoms: ascities, edema fluid retention Malnutrition Alert Body Fat Depletion (Non-Severe) Mild Depletion Muscle Mass (Non-Severe) Mild Depletion Intervention/Recommendation Comments 1. Recommend low sodium diet, when BP stabilizes, to aid in liver cirrhosis, fluid retention, CKD. Discussed with RN JUN Licea expressed to keep regular diet for now due to low BP. 2. Provided nutrition education on alcohol vs malnutrition, low sodium vs fluid retention. Pt understood and was receptive. 3. PO intake inadequate yesterday. Write explained importance of nutrition especially likeliness of chronic malnutrition. Pt agreed and motivated. Expected Outcomes/Goals Expected Outcomes/Goals 1. PO intake to meet at least 75% of esitmated nutritional needs.
--- NOTE | 2016-12-04 17:44 | Discharge Summary ---
DATE OF DISCHARGE: 12/03/2016 PRELIMINARY DIAGNOSES: 1. Acute alcoholic liver cirrhosis. 2. Coagulopathy. 3. Anemia. 4. Sepsis. 5. Hypokalemia. 6. Chronic kidney disorder. 7. Escherichia coli noted in the urine. DISCHARGE DIAGNOSES: 1. Acute alcoholic liver cirrhosis. 2. Coagulopathy. 3. Anemia. 4. Sepsis. 5. Hypokalemia. 6. Chronic kidney disorder. 7. Escherichia coli noted in the urine. BRIEF HISTORY OF PRESENT ILLNESS: This is a 61-year-old female with history of alcohol abuse, presents to [facility] ER via ambulance with generalized weakness and fatigue. The patient was noted to be hypertensive while in the ER and was given drops of IV dehydration. States that her last drink was five days prior to admission. The patient presents to the ER with signs of jaundice with yellowing of her eyes and distended abdomen. The patient was seen at [place] ER a few days prior to admission and underwent paracentesis of her abdominal cavity. Her initial lab work in the ER revealed a white count of 12,000, hemoglobin of 10.2, hematocrit of 28.7 and platelets 97. Her liver enzymes were noted to be elevated. Initial liver enzymes showed AST of 194, ALT of 113, alkaline phosphatase 189. Her albumin was noted to be 2.9. The patient also underwent hepatitis panel, which came back negative for A, B or C. HIV also was nonreactive. The patient was subsequently admitted for further evaluation and treatment. HOSPITAL COURSE: The patient was seen and evaluated by GI. Please see dictated report. During her hospital stay, ultrasound of her abdomen did show some hepatomegaly with diffuse gallbladder sludge noted. The patient also was seen and evaluated by Nephrology. Please see dictated report. Renal ultrasound was ordered to assess her kidney function and please see dictated report of ultrasound of the kidneys. The patient had initial blood cultures negative. Urine was noted to be positive for E. coli. The patient was placed on IV Levaquin and an ID consult was ordered. Please see dictated report. The patient improved during her hospital stay, generalized weakness and fatigue, stayed the same; however, her abdomen swelling had gone down. During her hospital stay, the patient underwent another paracentesis of her abdomen. Appetite was still somewhat poor. The patient complained of some decreased appetite during her stay and was subsequently transferred to a senior care facility for further evaluation and treatment. [facility]# [id number]
== END 2016-12-03 19:30 | disposition short-term general hospital (02) | DRG 871 ==
LOC: ER 16:37 → TELE 20:38
PROVIDERS: ADMIT Family Medicine; ATTEND Family Medicine
PROC: 0W9G3ZZ Drainage of Peritoneal Cavity, Percutaneous Approach (ICD-10-PCS; principal; 2016-12-02)
DX: A41.9 Sepsis, unspecified organism (principal); E43 Unspecified severe protein-calorie malnutrition; D65 Disseminated intravascular coagulation [defibrination syndrome]; N17.9 Acute kidney failure, unspecified; K70.31 Alcoholic cirrhosis of liver with ascites; K70.10 Alcoholic hepatitis without ascites; E87.1 Hypo-osmolality and hyponatremia; N39.0 Urinary tract infection, site not specified; E87.70 Fluid overload, unspecified; K72.90 Hepatic failure, unspecified without coma; E87.6 Hypokalemia; N18.9 Chronic kidney disease, unspecified; F10.10 Alcohol abuse, uncomplicated; J45.909 Unspecified asthma, uncomplicated; R65.20 Severe sepsis without septic shock; D53.9 Nutritional anemia, unspecified; R74.0 Nonspecific elevation of levels of transaminase and lactic acid dehydrogenase [LDH]; D63.8 Anemia in other chronic diseases classified elsewhere; B96.20 Unspecified Escherichia coli [E. coli] as the cause of diseases classified elsewhere; Z88.0 Allergy status to penicillin; Z68.26 Body mass index [BMI] 26.0-26.9, adult
CPT/HCPCS: 36415-UA; 71010-TC; 76700-TC; 76705-TC; 76770-TC; 76942-TC; 80048-TC; 80053-TC; 80074-90; 81001-TC; 81015-TC; 82105-90; 82140-TC; 82550-TC; 82553; 82570-TC; 83605; 83735-TC; 83930-90; 84100-TC; 84157-TC; 84300-TC; 84550-TC; 85007-TC; 85025-TC; 85027-TC; 85049-TC; 85379-TC; 85384-TC; 85610-TC; 85730-TC; 87086-90; 87389-90; 89051-TC; 90799; 93005; 94760; C9113; J0696; J1956; J3475; J3480; J7030; J7040; P9046; Z7502

== ENCOUNTER 2017-01-01 17:26 | Emergency (ER) | payer OTHER ==
--- NOTE | 2017-01-01 17:55 | ED Physician Chart ---
ED Chief Complaint/HPI - Patient Information Date Seen:: 01/01/17 Time Seen:: 17:49 Chief Complaint:: Ascites History of Present Illness:: 61 yo female has severe ascites due to end stage acholic liver disease. The patient has been on hospice care a day ago. She has received 5 times of paracentesis over past one month due to rapid worsening of ascites. Abdominal bloating. Denies SOB. Allergies:: Allergies Allergy/AdvReac Type Severity Reaction Status Date / Time Penicillins [PCN] Allergy Verified 11/28/16 17:09 Vitals:: Vital Signs - 8 hr 01/01/17 17:31 Temp 97.8 F HR 108 RR 16 BP 126/83 O2 Sat % 98 ED Past Medical History - Past Medical History Past Medical History: Other (liver cirhosis) Social History: Smoker, Alcohol, No Drug Use Surgical History: None Family Medical History - Family Member Mother History Unknown: Yes Hx Family Cancer: No Hx Family Coronary Artery Disease: No Hx Family Congestive Heart Failure: No Hx Family Hypertension: No Hx Family AIDS: No Hx Family HIV: No Hx Family Hepatitis: No ED Physical Exam - Physical Examination General/Constitutional: Awake, Alert Head: Atraumatic Eyes: PERRL, EOMI Other Eyes comments:: Jaundice Other Skin comments:: ecchymosis ENMT: External ears, nose nl Neck: Full ROM w/o pain Cardio Vascular: RRR, No murmur, gallop, rubs, NL S1 S2 Other GI comments:: Significant abdominal distension Extremities: Full ROM Neuro/Psych: No focal deficits ED Assessment - Assessment General Assessment: End stage liver disease Liver cirrhosis Ascites Critical Care Time: 50 Excludes all billable procedures: Yes This condition life threatening/high prob of deterioration: Yes - Procedures Procedures:: Paracentesis at RLQ with 6.3 litters of fluid aspirated. Patient tolerated the procedure well. Informed Consent: Procedure/risk/benefits explained by MD: Yes ED Septic Shock - . Is Septic Shock (SBP<90, OR Lactate>4 mmol\L) present?: No - <6hrs of presentation: Vital Signs: Vital Signs - 8 hr 01/01/17 17:31 Temp 97.8 F HR 108 RR 16 BP 126/83 O2 Sat % 98 ED Reassessment (Disposition) - Reassessment Reassessment Condition:: Improved - Aftercare/Follow up Instructions Aftercare/Follow-Up Instructions:: Counseled pt regarding lab results/diagnosis & need follow up, Refer to Discharge Instructions - Patient Disposition Discharge/Transfer:: Hospice ED Discharge Plan - Patient Disposition Instructions: Ascites
--- NOTE | 2017-01-02 09:34 | Diagnostic Imaging Report ---
Ultrasound-guided paracentesis History: Ascites Comparison: Ultrasound-guided paracentesis study on 12/02/2016 Technique/procedure: Ultrasound-guided paracentesis was performed by the primary physician. 6.3 L of yellow-colored fluid was drained from the right lower quadrant. Please refer to the procedural report for complete details. IMPRESSION: Ultrasound-guided paracentesis as above.
== END 2017-01-01 21:30 | disposition home or self-care (01) ==
LOC: ER 17:26
DX: K70.31 Alcoholic cirrhosis of liver with ascites (principal); F17.200 Nicotine dependence, unspecified, uncomplicated
CPT/HCPCS: 76942-TC; Z7502

== ENCOUNTER 2017-01-15 11:49 | Emergency (ER) | payer OTHER ==
--- NOTE | 2017-01-15 13:53 | Diagnostic Imaging Report ---
Ultrasound-guided paracentesis HISTORY: Ascites COMPARISON: Previous paracentesis procedure on 01/01/2017 Technique/procedure: Informed consent was obtained and sterile techniques were utilized. Paracentesis procedure was performed by the referring physician. A total of 7 L of yellow-colored fluid was drained from the left lower quadrant. Please refer to the referring physician's report for complete details. IMPRESSION: Successful ultrasound-guided paracentesis as above.
--- NOTE | 2017-01-16 09:18 | ED Physician Chart ---
ED Chief Complaint/HPI - Patient Information Date Seen:: 01/15/17 Time Seen:: 12:30 Chief Complaint:: Severe ascites History of Present Illness:: 61 yo female has end stage liver disease and is a hospice patient. She presented to ER due to repeated severe ascites despite paracentesis 2 weeks ago. Allergies:: Allergies Allergy/AdvReac Type Severity Reaction Status Date / Time Penicillins [PCN] Allergy Verified 11/28/16 17:09 ED Review of Systems - Review of Systems General/Constitutional: Weakness Skin: Other (jaundice) Head: No headache Eyes: No loss of vision ENT: No nasal drainage Neck: No neck pain Cardio Vascular: No chest pain Pulmonary: SOB GI: Nausea, No vomiting, Other (ascites) Musculoskeletal: No bone or joint pain ED Past Medical History - Past Medical History Past Medical History: Other (ES liver disease) Social History: Non Smoker, No Alcohol (former alcohol abuser) Family Medical History - Family Member Mother History Unknown: Yes Hx Family Cancer: No Hx Family Coronary Artery Disease: No Hx Family Congestive Heart Failure: No Hx Family Hypertension: No Hx Family AIDS: No Hx Family HIV: No Hx Family Hepatitis: No ED Physical Exam - Physical Examination General/Constitutional: Awake, Alert Head: Atraumatic Eyes: PERRL, EOMI Skin: No ecchymosis ENMT: Nasal exam nl Neck: Nontender Cardio Vascular: RRR, No murmur, gallop, rubs, NL S1 S2 Other GI comments:: severe ascites with distended abdomen Extremities: Full ROM Neuro/Psych: No focal deficits ED Assessment - Assessment General Assessment: Severe ascites Critical Care Time: 30 min Excludes all billable procedures: Yes This condition life threatening/high prob of deterioration: No - Procedures Procedures:: Ultrasound-guided paracentesis with around 7L fluid out. The patient tolerated without complication. Informed Consent: Procedure/risk/benefits explained by MD: Yes ED Septic Shock - . Is Septic Shock (SBP<90, OR Lactate>4 mmol\L) present?: No ED Reassessment (Disposition) - Reassessment Reassessment Condition:: Improved - Aftercare/Follow up Instructions Aftercare/Follow-Up Instructions:: Counseled pt regarding lab results/diagnosis & need follow up, Refer to Discharge Instructions - Patient Disposition Discharge/Transfer:: Home ED Discharge Plan - Patient Disposition Admit/Discharge/Transfer: PT DISCHARGED HOME Condition at Disposition: Stable Instructions: Ascites, Paracentesis
== END 2017-01-15 16:35 | disposition home or self-care (01) ==
LOC: ER 11:49
DX: R18.8 Other ascites (principal)
CPT/HCPCS: 76942-TC; Z7502

== ENCOUNTER 2017-01-29 11:21 | Inpatient (IN) | payer OTHER ==
[2017-01-29] MEDS ORDERED: cefTRIAXone 1 GM in Sodium Chloride 0.9% 50 ML IV ONE (12:21)
[2017-01-29] MEDS ORDERED: metroNIDAZOLE 500mg/NS 100mL 500 MG/100 ML BAG IV ONE (12:23)
[2017-01-29 13:09] LABS: INR 1.34 (0.5-1.4); PROTHROMBIN TIME (TEST) 14.1 SECONDS (9.5-11.5)
[2017-01-29 13:11] LABS: HEMOGLOBIN 16.3 gm/dL (12-16); MEAN CELL VOLUME 103.4 fl (81-100); MEAN CORPUSCULAR HEMOGLOBIN 34.3 pg (27.0-31.0); MEAN CORPUSCULAR HGB CONC 33.2 pg (28.0-36.0); MEAN PLATELET VOLUME 7.9 fl; NEUTROPHILE ABSOLUTE 23.8 Th/cmm (1.8-8.0); PLATELET COUNT 171 Th/cmm (150-400); RED BLOOD COUNT 4.76 Mil/cmm (3.80-5.10); RED CELL DISTRIBUTION WIDTH 14.1 % (11.5-20.0)
[2017-01-29 13:12] LABS: HEMATOCRIT 49.2 % (41.0-60); WHITE BLOOD COUNT 26.7 Th/cmm (4.8-10.8)
[2017-01-29 13:27] LABS: ALKALINE PHOSPHATASE 295 U/L (34-104); BILIRUBIN,TOTAL 2.9 mg/dL (0.3-1.0); BUN - UREA NITROGEN 35 mg/dL (7-25); CARBON DIOXIDE 31.2 mEq/L (21.0-31.0); CHLORIDE 89 mEq/L (98-107); GLUCOSE 178 mg/dL (70-105); POTASSIUM SERUM 3.2 mEq/L (3.5-5.1); SGOT 35 U/L (13-39); SGPT/ALT 75 U/L (7-52); SODIUM SERUM 125 mEq/L (136-145)
[2017-01-29] MEDS ORDERED: Albumin 25% 12.5gm/50mL 12.5 GM/50 ML BTL IV ONE ×2 (14:58→16:00)
[2017-01-29 15:06] LABS: BAND NEUTROPHILE 2 % (0-10); NEUTROPHILS 86 % (40-80)
[2017-01-29 15:07] LABS: PLATELET ESTIMATE ADEQUATE (NORMAL)
--- NOTE | 2017-01-29 15:27 | Diagnostic Imaging Report ---
Ultrasound-guided paracentesis History: Ascites Comparison: Prior paracentesis procedure on 01/15/2017 Technique/procedure: Ultrasound-guided paracentesis was performed by the primary physician. 9 L of yellow-colored fluid was aspirated from the left lower quadrant. Please refer to the primary physician's report for complete details. IMPRESSION: Status post ultrasound-guided paracentesis as above.
[2017-01-29] MEDS ORDERED: Levofloxacin 500mg/100mL 500 MG/100 ML BAG IV ONE ×2 (15:46→16:06)
[2017-01-29] MEDS ORDERED: Potassium Chloride 20 mEq ER Tab PO ONE ×2 (15:50→16:01)
[2017-01-29] MEDS ORDERED: Sodium Chloride 0.9% 500 ML IV ONE (15:51)
[2017-01-29] MEDS ORDERED: Pantoprazole 40 mg EC Tab PO STA (15:52)
[2017-01-29] MEDS ORDERED: Pantoprazole 40 mg EC Tab PO ONE (16:00)
[2017-01-29 19:07] VITALS: BP 96/68
[2017-01-29] MEDS ORDERED: Pneumococcal Vaccine 0.5 mL Vial IM ONE (19:25)
[2017-01-29] MEDS: Albumin 25% 25gm/100mL 25 GM/100 ML BTL IV SCH (20:57)
[2017-01-29] MEDS: metroNIDAZOLE 500mg/NS 100mL 500 MG/100 ML BAG IV SCH (20:57)
--- NOTE | 2017-01-30 02:02 | ER Physician Documentation ---
DATE OF SERVICE: PARACENTESIS REPORT UNDER ULTRASONIC GUIDANCE SUMMARY: The patient was found to have a large tense ascites and she needed a tapping to be done. Ultrasound guidance was used. A pocket was found with large-volume ascites seen and the area was cleaned up with Betadine followed by Exidine followed by local lidocaine injection was infiltrated. We infiltrated more deeper in and then went more deeper in and then we removed that. We got some ascites fluid coming out and then we removed that and inserted a needle connected to the tubing and the needle was also connected. Needle with the sheath was punctured in the ascitic fluid area. Good fluid was returned. The needle was removed and we connected the other end of the needle to the bottle and a paracentesis was begun. A total of I believe 9 bottles had been removed. I believe, if needed, we might remove the 10th bottle and I think that should be enough for today. The patient's white count being high, the patient was given Rocephin 1 g and 500 mg p.o. as initially no veins were available. The patient will be going home on antibiotics. If possible, we might try to get some couple of blood cultures but no use. We can give some gram-negative antibiotics, Cipro 500 mg b.i.d. for 2 weeks and Flagyl 500 mg p.o. 3 times a day for 2 weeks. Procedure when successful, then the sheath that was inside the belly was removed and sterile dressing was applied. At the present moment, they are doing the 8th one and they will be doing the 9th one and if needed they might go to the 10th one. They can get 1 if the pressure is good. FINAL CONCLUSION: Successful paracentesis of at least 9 L of fluid and if the pressure is good 10th liter also will be removed from the belly and the patient will go home on antibiotics and some simple painkiller. Other lab results are not available and so cannot give more lab results. If any other lab results are there, I will redictate it again. JOB# [id number]
[2017-01-30] MEDS: metroNIDAZOLE 500mg/NS 100mL 500 MG/100 ML BAG IV SCH ×3 (05:52→20:18)
[2017-01-30 05:53] LABS: MEAN CELL VOLUME 102.4 fl (81-100); MEAN CORPUSCULAR HEMOGLOBIN 34.7 pg (27.0-31.0); MEAN CORPUSCULAR HGB CONC 33.9 pg (28.0-36.0); MEAN PLATELET VOLUME 7.6 fl; PLATELET COUNT 109 Th/cmm (150-400); RED BLOOD COUNT 3.69 Mil/cmm (3.80-5.10); RED CELL DISTRIBUTION WIDTH 13.9 % (11.5-20.0)
[2017-01-30 06:03] LABS: ALKALINE PHOSPHATASE 213 U/L (34-104); ANION GAP 8.3 (7.0-16.0); BILIRUBIN,TOTAL 2.5 mg/dL (0.3-1.0); BUN - UREA NITROGEN 34 mg/dL (7-25); BUN/CREATININE RATIO 37.8; CALCIUM SERUM 9.8 mg/dL (8.6-10.3); CARBON DIOXIDE 31.3 mEq/L (21.0-31.0); CHLORIDE 93 mEq/L (98-107); CREATININE - SERUM 0.9 mg/dL (0.6-1.2); GLUCOSE 173 mg/dL (70-105); POTASSIUM SERUM 3.6 mEq/L (3.5-5.1); SGOT 28 U/L (13-39); SGPT/ALT 50 U/L (7-52); SODIUM SERUM 129 mEq/L (136-145)
[2017-01-30 06:17] LABS: HEMATOCRIT 37.8 % (41.0-60); HEMOGLOBIN 12.8 gm/dL (12-16); WHITE BLOOD COUNT 18.9 Th/cmm (4.8-10.8)
[2017-01-30] MEDS ORDERED: Lactulose 10 Gm/15 mL 30mL UDC PO PRN (06:41)
[2017-01-30] MEDS ORDERED: Magnesium Hydroxide (MOM) 30 mL UDC PO PRN (06:41)
--- NOTE | 2017-01-30 06:52 | History and Physical ---
History of Present Illness - HPI Chief Complaint: abdoinal distension HPI: 61 year old female who presents to [facility] ER for abdominal swelling and tenderness. Patient has a history of alcohol liver cirrhosis and was seen one month ago for similar complaints. While in the ER the patient underwent US guided paracentesis and had 9L of fluid removed. Patient had initial labwork done in the ER which revealed WBC 26K Na 125 K 3.2 Bun/Cr 35/ 1.0 AST 35 ALT 75 Alk 295. Vital Signs: Last Vital Signs Temp 97 F 01/30/17 04:00 Pulse 93 01/30/17 04:00 Resp 19 01/30/17 04:00 BP 109/69 01/30/17 04:00 Pulse Ox 97 01/30/17 04:00 Past Medical History Cardiovascular: Report: No Pertinent Hx Pulmonary: Report: No Pertinent Hx DIRECTOR CARD: Report: No Pertinent Hx GI: Report: Other (Alcoholic Liver Cirrhosis) Psych: Report: No Pertinent Hx Musculoskeletal: Report: No Pertinent Hx Rheumatologic: Report: No pertinent Hx Infectious Disease: Report: No Pertinent Hx Renal/: Report: No Pertinent Hx Endocrine: Report: No Pertinent Hx Dermatology: Report: No Pertinent Hx - Past Surgical History Past Surgical History: No pertinent Hx Family Medical History - Family Member Mother History Unknown: Yes Ethnicity: Non- Living Status: Hx Family Cancer: No Hx Family Coronary Artery Disease: No Hx Family Congestive Heart Failure: No Hx Family Hypertension: No Hx Family Stroke: No Hx Family Diabetes: No Hx Family Seizures: No Hx Family Dementia: No Hx Family AIDS: No Hx Family HIV: No Hx Family COPD: No Hx Family Hepatitis: No Hx Family Psychiatric Problems: No Hx Family Tuberculosis: No Social History Smoke: No Alcohol: None Drugs: None Lives: Alone - Medications Home Medications: Home Medication Medication Instructions Recorded Type Acetaminophen [Tylenol] 500 mg PO Q4H PRN 01/29/17 History Acetaminophen [Tylenol] 500 mg PO Q4HR PRN 01/29/17 History Acetaminophen [Tylenol] 650 mg PO Q4H PRN 01/29/17 History Famotidine [Pepcid] 20 mg PO BID 01/29/17 History Folic Acid 1 mg PO DAILY 01/29/17 History Furosemide [Lasix] 20 mg PO DAILY 01/29/17 History Lactulose 20 gm PO DAILY PRN 01/29/17 History Magnesium Hydroxide [Milk of 1,200 mg PO DAILY PRN 01/29/17 History Magnesia] Magnesium Oxide [Magnesium] 400 mg PO BID 01/29/17 History Multivitamin [Multivitamins] 1 g PO DAILY 01/29/17 History Sennosides [Rachel-Duy] 8.6 mg PO HS 01/29/17 History Sodium Chloride Tab [NaCL Tab] 500 mg PO DAILY 01/29/17 History Spironolactone [Aldactone] 25 mg PO DAILY 01/29/17 History - Allergies Allergies/Adverse Reactions: Allergies Allergy/AdvReac Type Severity Reaction Status Date / Time Penicillins [PCN] Allergy Verified 11/28/16 17:09 Review of Systems - Review of Systems Constitutional: Report: Weakness, Malaise Eyes: Report: Other (jaundice) ENT: Report: No Significant Respiratory: Report: No Significant Cardiovascular: Report: No Significant Gastrointestinal: Report: Abdominal Pain Genitourinary: Report: No Significant Musculoskeletal: Report: No Significant Skin: Report: No Significant Neurological: Report: Weakness Physical Exam - Physical Exam HEENT: Report: Ears Nose Throat within normal limits, Pharnyx within normal limits, Other (scleral icterus) Neck: Report: Within normal limits Cardiovascular Systems: Report: +s1/s2 noted, Regular, Rate and Rhythm Respiratory: Report: Breath Sounds are within normal limits, Clear to Auscultation of lung gill Abdomen: Report: Non-tender to palpation Back: Report: Inspection of back is within normal limits. Extremities: Report: Non-tender to palpation. Skin: Report: Other (jaundice) - Lab Results All Lab Results last 24 hours: Laboratory Results - last 24 hr 01/29/17 01/30/17 01/30/17 14:53 04:43 04:43 WBC 18.9 H D RBC 3.69 L Hgb 12.8 D Hct 37.8 L D MCV 102.4 H MCH 34.7 H MCHC Differential 33.9 RDW 13.9 Plt Count 109 L D MPV 7.6 Sodium 129 L Potassium 3.6 Chloride 93 L Carbon Dioxide 31.3 H Anion Gap 8.3 BUN 34 H Creatinine 0.9 Est GFR ( Amer) > 60.0 Est GFR (Non-Af Amer) > 60.0 BUN/Creatinine Ratio 37.8 Glucose 173 H Whole Bld Lactic Acid 2.53 H* Calcium 9.8 Total Bilirubin 2.5 H AST 28 ALT 50 Alkaline Phosphatase 213 H Total Protein 4.8 L Albumin 3.2 L Globulin 1.6 Albumin/Globulin Ratio 2.0 H - Assessment Assessment: Acute Alcoholic Liver Cirrhosis S/P US guided paracentesis anemia Sepsis hypokalemia CKD UTI - Plan Plan: Acute Alcoholic Liver Cirrhosis ... GI consults. hepatitis panel S/P US guided paracentesis hyponatremia anemia Sepsis WBC's 26.7K --> 18.9K ... ID consult. continue IV rocephin and flagyl. hypokalemia ... add PO KCL, CMP tomorrow CKD UTI
[2017-01-30 07:41] LABS: BAND NEUTROPHILE 9 % (0-10); NEUTROPHILS 82 % (40-80); TOTAL CELLS COUNTED 100
[2017-01-30 07:42] LABS: PLATELET ESTIMATE SLIGHT DECREASED (NORMAL)
--- NOTE | 2017-01-30 08:54 | ER Physician Documentation ---
DATE OF SERVICE: 01/29/2017 History and physical examination, ER evaluation and treatment and paracentesis. ER female patient, 61-year-old. I saw the patient on 01/29/2017 in the Emergency Room. The patient has come here few times for paracentesis and the patient, I believe came from ____ [facility], . She is allergic to penicillin. HISTORY OF PRESENT ILLNESS: The patient has chronic liver disease. She has cirrhotic disease on account of heavy alcohol drinking. She used to drink heavy alcohol, but she stopped drinking alcohol. For the past 4-5 times, she has come over here and had paracentesis in the volume of 7-[address] Last time [address] Schmid removed a couple of times fluids and today was my turn, I believe she came today in my shift with swollen abdomen, painful, tender and the veins over the abdomen were prominent. REVIEW OF SYSTEMS: EYES: No history of double vision, blurring or blindness. CENTRAL NERVOUS SYSTEM: Denied any TIA. There is no history of encephalopathy. There is no history of any brain tumor. No history of any jaundice. No history of any cancers. She needs frequent now a days tapping. Every time a huge quantity at least 8-9 liters have been removed. At this time also, I believe she is on the 8th bottle being removed, might need a 9th bottle, also might be removed and depends, if the pressure is good, one more bottle might be removed, so at least 10; this is heavy, a large volume paracentesis will be done on her. She has no heart disease. She has no myocardial infarction, rheumatic fever, valvular heart disease, pericardial disease. No history of pneumonia, TB or pulmonary embolism, blood clots. No history of any other medical problems. PHYSICAL EXAMINATION: VITAL SIGNS: Show temperature to be 97.7, pulse of 194, respiration 18, blood pressure 121/86, and oxygen saturation was 98%. The patient was in home ____. GENERAL: On examination, she is adequately built, poorly nourished, not in any acute cardiorespiratory distress. HEENT: Conjunctivae pink. Sclerae white. HEENT is normal. She appears to show pallor. SKIN: She has generalized ecchymotic patches seen all over the abdomen. No evidence of any deep vein thrombophlebitis. Muscle mass is decreased. The patient has no edema. No deep vein thrombophlebitis. CHEST: Clear. Trachea being central. Fairly good air entry in both lungs without any rales, rhonchi, or bronchial breathing. ABDOMEN: Soft, benign, and negative. The etiology for cirrhotic is alcohol as I mentioned earlier. She denies jaundice, but I am not aware of any past medical history about jaundice, etc. DIAGNOSES: 1. Cirrhotic liver secondary to heavy alcohol ingestion. 2. The patient most likely has subacute bacterial endocarditis. The white count has come down to 26,200. LABORATORY DATA: The patient's white count is 26,700, hemoglobin is 16.3, hematocrit is 49.2, mean corpuscular volume is 103.4, mean corpuscular hemoglobin is 34.3, and platelet count is 171,000. INR is 1.34. Protime is 14.1. No other labs are available at the present moment. PLAN: Plan is to have a paracentesis done, high volume. This is a separate procedure report on this patient, same patient. This would be a second dictation, but let me finish the first one. JOB# [id number]
[2017-01-30] MEDS ORDERED: MULTIVITAMIN PO SCH (09:00)
[2017-01-30] MEDS: Albumin 25% 25gm/100mL 25 GM/100 ML BTL IV SCH ×2 (09:11→21:26)
[2017-01-30] MEDS: cefTRIAXone 1 GM in Sodium Chloride 0.9% 50 ML IV SCH (09:22)
--- NOTE | 2017-01-30 11:10 | Consultation ---
DATE OF CONSULTATION: 01/30/2017 REQUESTING PHYSICIAN: Donnell Ignacio D.O. REASON FOR CONSULTATION: Cirrhosis and ascites. HISTORY OF PRESENT ILLNESS: A 61-year-old female with alcoholism, presenting with decompensated alcoholic cirrhosis. She has a history of recurrent ascites, requiring multiple paracenteses. She had abdominal distention, requiring emergent paracentesis yesterday of 9 liters. Last drainage was about 2 weeks ago per her . The patient requires once weekly drainage. The insurance only approved every 2 week drainage. The patient was enrolled in home hospice, but the just enrolled her and brought to the ER for emergent care that he states the patient was not getting at home. She also was noted to have lactic acidosis and leukocytosis, rule out sepsis. She has been initiated on antibiotics. PAST MEDICAL HISTORY: As above. The patient's last drink of alcohol was reportedly 2 weeks ago. MEDICATIONS: Here are Tylenol, IV albumin, Rocephin, Flagyl, Pepcid, Protonix, Lasix, Aldactone, lactulose p.r.n., milk of magnesia p.r.n., folic acid, multivitamin, magnesium oxide, senna p.r.n. ALLERGIES: Penicillin. SOCIAL HISTORY: Past heavy alcohol. No recent tobacco or drug use. FAMILY HISTORY: Noncontributory. REVIEW OF SYSTEMS: Negative. PHYSICAL EXAMINATION: VITAL SIGNS: Temperature of 97.3, blood pressure 106/68, pulse of 96, respirations 18, O2 sat is 99%. GENERAL: The patient is well-developed, elderly, chronically ill-appearing female, in no acute distress, appearing awake and alert. CARDIOVASCULAR: Regular rate and rhythm. LUNGS: With occasional rhonchi at the base. ABDOMEN: Soft. Mild ascites. Normoactive bowel sounds. No tenderness to palpation. EXTREMITIES: Trace pitting, pedal edema. RECTAL: Deferred. LABORATORY DATA AND IMAGING: WBC initially of 26.7 down to 18.9, now hemoglobin of 12.8, platelet count is 109. INR is 1.3. Sodium is 129, yesterday was 125, creatinine is 0.9, BUN is 34, calcium is 9.8, bilirubin 2.5, AST 28, ALT 50, alkaline phosphatase 213, albumin 3.2. TSH is normal. IMPRESSION: 1. Alcoholic cirrhosis, decompensated. 2. Ascites, requiring paracentesis to rule out SBP. 3. Leukocytosis and likely sepsis, rule out SBP versus other source of sepsis. 4. Thrombocytopenia and coagulopathy. 5. Hyponatremia, now better. 6. Debility. RECOMMENDATIONS: 1. Check fluid analysis of ascitic fluid if feasible. 2. Gentle diuresis as tolerated by sodium and creatinine. 3. A 2 g sodium diet. 4. Paracentesis in the future as needed. 5. Continue thiamine, multivitamin, and folic acid. 6. Pepcid. 7. Continue antibiotics for now and monitor WBC. Thank you, Dr. Donnell Ignacio for involving us in the care of your patient. If you have any further questions, please call us. [facility]# [id number]
--- NOTE | 2017-01-30 15:52 | ER Physician Documentation ---
DATE OF SERVICE: 01/29/2017 PROCEDURE REPORT INDICATIONS: She does not have any peripheral access. She has hepatic encephalopathy. She is septic. She has SIRS and most likely she has acute on subacute bacterial peritonitis and she needs antibiotics. She needs lactulose. She needs fluids and other medication. Hence, she needs a triple lumen catheter. Informed consent was taken from the patient. All the risks, complications, alternatives about the procedure were explained to the patient, understood by the patient, and accepted by the patient. Because of the elevated protime, right side of the neck was not selected, IVC was not selected even though knowing that putting a line in the femoral vein is not as good as putting a line in the internal jugular vein. So considering that temporarily, I put a line in the right femoral vein. DESCRIPTION OF PROCEDURE: The patient gave the consent, right side of the groin was prepped and draped in a sterile fashion following which local anesthesia was then administered. Using Seldinger technique with one stick, the right femoral vein was punctured. Good blood flow was obtained and then a wire was introduced through a needle. Needle was taken out. The ed was made over the wire and then over the wire, a dilator was introduced and dilated that area. After that, the triple lumen catheter was inserted. The origin of the triple lumen catheter, all the closing device, the buttons were all taken out. They were all flushed up and then we inserted this triple lumen catheter over the wire all the way down inside in the inferior vena cava and covered with nice circular dressing and then we applied the flush without needle flush tips which fortunately we have it. This is a nice hospital, so we have it all and the nurse also was excellent in giving me those in time, all the time and then we got that and then we flushed all the ports with diluted heparinized solution and the patient's line was then sutured in place. A sterile dressing was applied by Nieves who helped me a whole lot along with the colleague, Selina, and we were able to finish the job in less than 10-12 minutes, the whole procedure was done. IV albumin 100 mL was ordered to be given daily for at least 3 days. More orders will be given by her own physician. I would suggest that the ceftriaxone and Flagyl should be given at least for 2 weeks and after you get the cultures, vancomycin could be discontinued or decreased to only a few days depending upon the needs. If any MRSA or gram-positive infections are there that are resistant to ceftriaxone, then vancomycin should be continued. I believe that pseudomonas is not covered with neither of this organism, so I would add Levaquin to the regimen 500 mg once a day to cover for gram-negative organism, especially Cipro to cover for pseudomonas. Any further organisms are detected which are sensitive to ceftriaxone, then ceftriaxone will be better, it is less renal toxic, and quinolone group of drugs are toxic to the tendons and also toxic to autoimmune system. Hence it is better to avoid as much as possible because of the gravity of the situation and the seriousness of the situation. One dose of Levaquin has been given to the patient 500 mg, 1 g of vancomycin has been given, 500 mg of Flagyl has been given, 1 g of ceftriaxone has been given. Blood cultures MRSA, etc., and I will put on some other orders for tomorrow for this patient, for the physician. LABORATORY DATA: The patient's sodium level is only 125; potassium is 3.2; so the patient will need some sodium, some chloride; chloride is 89; anion gap is 31.2; glucose is 178; BUN is 35, creatinine is 1, so prerenal azotemia is present. BUN and creatinine ratio is ____, total protein is 5.2, albumin is 2.6, albumin-globulin ratio is 2.6; bilirubin is 1, AST is 35, ALT is elevated 75, alkaline phosphatase is 295. Protime is 1.34. We will give the patient some vitamin K1, thiamine, etc., and give the patient some lactic acidosis is elevated to 2.69. The patient has sepsis, white count is elevated to 26.7, and ____ 4.76, hemoglobin 16.3, hematocrit is 49.2, platelet count is 171,000. Manual differential is required. Thanks again to our very great nurses for helping me. JOB# [id number]
[2017-01-31] MEDS: metroNIDAZOLE 500mg/NS 100mL 500 MG/100 ML BAG IV SCH ×3 (04:52→20:48)
[2017-01-31 05:13] LABS: HEMATOCRIT 35.2 % (41.0-60); MEAN CELL VOLUME 101.3 fl (81-100); MEAN CORPUSCULAR HEMOGLOBIN 34.5 pg (27.0-31.0); MEAN CORPUSCULAR HGB CONC 34.1 pg (28.0-36.0); MEAN PLATELET VOLUME 7.4 fl; PLATELET COUNT 97 Th/cmm (150-400); RED BLOOD COUNT 3.47 Mil/cmm (3.80-5.10); RED CELL DISTRIBUTION WIDTH 14.3 % (11.5-20.0); WHITE BLOOD COUNT 17.4 Th/cmm (4.8-10.8)
[2017-01-31 05:30] LABS: ANION GAP 9.6 (7.0-16.0); BUN - UREA NITROGEN 28 mg/dL (7-25); BUN/CREATININE RATIO 31.1; CALCIUM SERUM 9.7 mg/dL (8.6-10.3); CARBON DIOXIDE 26.8 mEq/L (21.0-31.0); CHLORIDE 95 mEq/L (98-107); CREATININE - SERUM 0.9 mg/dL (0.6-1.2); GLUCOSE 161 mg/dL (70-105); POTASSIUM SERUM 3.4 mEq/L (3.5-5.1); SODIUM SERUM 128 mEq/L (136-145)
[2017-01-31] MEDS ORDERED: Lidocaine 2% Gel 5 mL TP ONE (07:00)
--- NOTE | 2017-01-31 07:04 | General Progress Note ---
Subjective - Review of Systems Service Date: 01/31/17 Subjective: Patient is awake, alert, no acute distress. States that her abdomen is feeling better. eating well. complains of constipation. States last BM was 2 days ago. Patient complains of joint pain. Patient requests topical gel for pain. Objective - Results Result Diagrams: 01/31/17 04:35 01/31/17 04:35 Recent Labs: Laboratory Last Values WBC 17.4 Th/cmm (4.8-10.8) H 01/31/17 04:35 RBC 3.47 Mil/cmm (3.80-5.10) L 01/31/17 04:35 Hgb 12.0 gm/dL (12-16) 01/31/17 04:35 Hct 35.2 % (41.0-60) L 01/31/17 04:35 MCV 101.3 fl (81-100) H 01/31/17 04:35 MCH 34.5 pg (27.0-31.0) H 01/31/17 04:35 MCHC Differential 34.1 pg (28.0-36.0) 01/31/17 04:35 RDW 14.3 % (11.5-20.0) 01/31/17 04:35 Plt Count 97 Th/cmm (150-400) L 01/31/17 04:35 MPV 7.4 fl 01/31/17 04:35 Band Neutrophils % 9 % (0-10) 01/30/17 04:43 Neutrophils (Manual) 82 % (40-80) H 01/30/17 04:43 Lymphocytes 6 % (20-50) L 01/30/17 04:43 Monocytes 3 % (2-10) 01/30/17 04:43 Platelet Estimate SLIGHT DECREASED (NORMAL) 01/30/17 04:43 PT 14.1 SECONDS (9.5-11.5) H 01/29/17 12:50 INR 1.34 (0.5-1.4) 01/29/17 12:50 Sodium 128 mEq/L (136-145) L 01/31/17 04:35 Potassium 3.4 mEq/L (3.5-5.1) L 01/31/17 04:35 Chloride 95 mEq/L (98-107) L 01/31/17 04:35 Carbon Dioxide 26.8 mEq/L (21.0-31.0) 01/31/17 04:35 Anion Gap 9.6 (7.0-16.0) 01/31/17 04:35 BUN 28 mg/dL (7-25) H 01/31/17 04:35 Creatinine 0.9 mg/dL (0.6-1.2) 01/31/17 04:35 Est GFR ( Amer) > 60.0 ml/min (>90) 01/31/17 04:35 Est GFR (Non-Af Amer) > 60.0 ml/min 01/31/17 04:35 BUN/Creatinine Ratio 31.1 01/31/17 04:35 Glucose 161 mg/dL (70-105) H 01/31/17 04:35 Whole Bld Lactic Acid 2.53 mmol/L (0.60-1.99) H* 01/29/17 14:53 Calcium 9.7 mg/dL (8.6-10.3) 01/31/17 04:35 Magnesium 2.2 mg/dL (1.9-2.7) 01/29/17 12:50 Total Bilirubin 2.5 mg/dL (0.3-1.0) H 01/30/17 04:43 AST 28 U/L (13-39) 01/30/17 04:43 ALT 50 U/L (7-52) 01/30/17 04:43 Alkaline Phosphatase 213 U/L (34-104) H 01/30/17 04:43 Total Protein 4.8 gm/dL (6.0-8.3) L 01/30/17 04:43 Albumin 3.2 gm/dL (3.7-5.3) L 01/30/17 04:43 Globulin 1.6 gm/dL 01/30/17 04:43 Albumin/Globulin Ratio 2.0 (1.0-1.8) H 01/30/17 04:43 Free T4 0.89 ng/dL (0.82-1.77) 01/29/17 12:50 TSH 1.63 uIU/ml (0.34-5.60) 01/29/17 12:50 - Physical Exam Vitals and I&O: Vital Signs Temp 97.6 F 01/31/17 04:00 Pulse 98 01/31/17 04:00 Resp 18 01/31/17 04:00 BP 99/63 01/31/17 04:00 Pulse Ox 97 01/31/17 04:00 Intake & Output 01/30/17 01/30/17 01/31/17 06:59 18:59 06:59 Intake Total 350 680 100 Balance 350 680 100 Weight (lbs) 58.014 kg 58.014 kg 57.606 kg Intake: Intake, IV Amount 300 200 100 Albumin 25% 25gm/100mL 25 100 100 gm In 100 ml @ 100 mls/ hr IV Q12HR [facility] Rx#: [id number] metroNIDAZOLE 500mg/NS 200 100 100 100mL 500 mg In 100 ml @ 100 mls/hr IV Q8HR [facility] Rx #:[id number] Oral 50 480 Other: # Voids 1 1 # Bowel Movements 0 Stool Characteristics Soft Formed Active Medications: Current Medications Acetaminophen (Tylenol) 325 mg PO Q4H PRN PRN Reason: MOD PAIN, FEVER 101 Stop: 03/31/17 06:40 Famotidine (Pepcid) 20 mg PO BID [facility] Stop: 03/31/17 08:59 Last Admin: 01/30/17 16:44 Dose: 20 mg Folic Acid (Folate) 1 mg PO DAILY [facility] Stop: 04/01/17 08:59 Furosemide (Lasix) 20 mg PO DAILY [facility] Stop: 03/31/17 08:59 Last Admin: 01/30/17 09:21 Dose: 20 mg Albumin Human (Albuminar 25%) 25 gm in 100 mls @ 100 mls/hr IV Q12HR [facility] Stop: 02/03/17 20:59 Last Admin: 01/30/17 21:26 Dose: 100 mls/hr Ceftriaxone Sodium 1 gm/ (Sodium Chloride) 50 mls @ 100 mls/hr IV Q24HR [facility] Stop: 03/31/17 08:59 Last Admin: 01/30/17 09:22 Dose: 100 mls/hr Metronidazole (Flagyl) 500 mg in 100 mls @ 100 mls/hr IV Q8HR [facility] Stop: 03/30/17 20:59 Last Admin: 01/31/17 04:52 Dose: 100 mls/hr Potassium Chloride (Potassium Chloride) 20 meq in 100 mls @ 50 mls/hr IV Q2H [facility] Stop: 01/31/17 10:59 Lactulose (Cephulac) 20 gm PO DAILY PRN PRN Reason: bowel management Stop: 03/31/17 06:40 Magnesium Hydroxide (Milk Of Magnesia) 30 ml PO DAILY PRN PRN Reason: IF NO BM FOR 3 DAYS Stop: 03/31/17 06:40 Magnesium Oxide (Mag-Oxide) 400 mg PO BID [facility] Stop: 03/31/17 16:59 Last Admin: 01/30/17 16:45 Dose: 400 mg Multivitamins/Vitamin C (Theragran) 1 tab PO DAILY [facility] Stop: 04/01/17 08:59 Pantoprazole Sodium (Protonix) 40 mg IVP DAILY [facility] Stop: 03/31/17 08:59 Last Admin: 01/30/17 09:22 Dose: 40 mg Senna (Senna) 8.6 mg PO HS [facility] Stop: 03/31/17 20:59 Last Admin: 01/30/17 20:18 Dose: Not Given Sodium Chloride (Nacl Tab) 0.5 gm PO DAILY [facility] Stop: 03/31/17 08:59 Last Admin: 01/30/17 09:18 Dose: 0.5 gm Spironolactone (Aldactone) 25 mg PO DAILY [facility] Stop: 03/31/17 08:59 Last Admin: 01/30/17 09:20 Dose: 25 mg General: Alert, Oriented x3, No acute distress HEENT: Atraumatic, PERRLA, EOMI Neck: Supple Cardiovascular: Regular rate, Normal S1, Normal S2 Lungs: Clear to auscultation Abdomen: Bowel sounds, Hepatomegaly, Distended Extremities: no Clubbing, no Cyanosis, no Edema - Procedures Procedures: Procedures Procedure Code Date ABD PARACENTESIS W/IMAGING 20514 11/28/16 DRAINAGE OF PERITONEAL CAVITY, PERCUTANEOUS APPROACH [id number] 11/28/16 Assessment/Plan - Problem List Patient Problems: All Active Problems ABDOMINAL DISTENTION (Acute) Acute on chronic alcoholic liver disease (Acute) K70.9 Anemia (Acute) D64.9 Chronic kidney disease (Acute) N18.9 Coagulopathy (Acute) Hypokalemia (Acute) E87.6 Sepsis (Acute) UTI (urinary tract infection) (Acute) - Assessment Assessment: Acute Alcoholic Liver Cirrhosis S/P US guided paracentesis anemia Sepsis hypokalemia CKD UTI constipation arthritis - Plan Plan: Acute Alcoholic Liver Cirrhosis ... GI consults. hepatitis panel S/P US guided paracentesis hyponatremia anemia Sepsis WBC's 26.7K --> 18.9K ... ID consult. continue IV rocephin and flagyl. hypokalemia ... add PO KCL, CMP tomorrow CKD UTI constipation arthritis. Nutritional Asmnt/Malnutr-PDOC - Dietary Evaluation Malnutrition Findings (Please click <Entered> for more info): Nutritional Asmnt/Malnutrition Start: 01/30/17 11: 00 Text: Status: Complete Freq: Document 01/30/17 11:00 MMULN (Rec: 01/30/17 11:17 [email or web address] [email or web address]) Nutritional Asmnt/Malnutrition Patient General Information Nutritional Screening High Risk Diagnosis Acute liver failure S/p paracentesis Pertinent Medical Hx/Surgical Hx Alcoholic liver cirrhosis Subjective Information Patient in bed at time of visit. Per nursing notes, patient is on hospice care. Paracentesis performed on admission with 8L removed. Bilateral buttocks wound ulceration noted. Current Diet Order/ Nutrition Support Regular Patient / S.O Not Indicated Pertinent Medications pepcid, folate, lasix, lactulose, MOM, mag-oxide, flagyl, theragran, protonix, senna Pertinent Labs (01/30) Na 129, alkaline phosphatase 213, albumin 3.2 Nutritional Hx/Data Height 1.6 m Height (Calculated Centimeters) 160.0 Current Weight (lbs) 57.606 kg Weight (Calculated Kilograms) 57.6 Weight (Calculated Grams) 13900.2 [place] Body Weight 115 % [place] Body Weight 110 Body Mass Index (BMI) 22.4 Weight Status Approriate GI Symptoms GI Symptoms None Last BM Prior to admission Difficult in: None Food Allergies No Cultural/Ethnic/[employer] Belief None indicated Usual diet at home Regular Skin Integrity/Comment: Nura 16, right upper arm skin teear, bruises on Bilateral lower and upper extremitites, ulceration of bilateral buttocks wound Estimated Nutritional Goals BEE in Kcals: Using Current wt Calories/Kcals/Kg 57.7kg BW (25-30 kcal/kg) Kcals Calculated 5001-2204 kcal/day Protein: Using Current wt Protein g/k.1-1.3 mg/kg Protein Calculated 65-75gm/day Fluid: ml ~6780-7116 ml/day (30-35 ml/kg ) Nutritional Problem 2. Problem Problem increased nutrient needs related to Etiology impaired skin integrity aeb Signs/Symptoms: buttocks wound 1. Problem Problem Altered nutrition related lab values related to Etiology electrolyte/fluid imbalance aeb Signs/Symptoms: Na 129 Intervention/Recommendation Comments 1. Consider modifying diet to 2gm sodium due to paracentesis /hyponatremia. 2. MD to consider fluid restriction as needed. 3. Encourage oral intake of meals/protein rich foods for wound healing. If oral intake is inadequate, consider protein supplementations. Expected Outcomes/Goals Expected Outcomes/Goals nutrition related lab values normalize, weight stable, oral intake to meet >75% of nutrient needs.
[2017-01-31 07:41] LABS: TOTAL CELLS COUNTED 100
[2017-01-31 07:42] LABS: BAND NEUTROPHILE 8 % (0-10); NEUTROPHILS 79 % (40-80); PLATELET ESTIMATE DECREASED PLATELETS (NORMAL)
[2017-01-31] MEDS: Multivitamin Tab PO SCH (09:19)
[2017-01-31] MEDS: Albumin 25% 25gm/100mL 25 GM/100 ML BTL IV SCH ×2 (09:25→20:48)
[2017-01-31] MEDS: cefTRIAXone 1 GM in Sodium Chloride 0.9% 50 ML IV SCH (09:28)
[2017-01-31] MEDS: KCL 20mEq/100mL Premix 20 MEQ/100 ML PIGGYBACK IV SCH ×2 (09:29→10:00)
[2017-02-01 05:09] LABS: HEMATOCRIT 36.1 % (41.0-60); HEMOGLOBIN 12.2 gm/dL (12-16); MEAN CELL VOLUME 102.4 fl (81-100); MEAN CORPUSCULAR HEMOGLOBIN 34.6 pg (27.0-31.0); MEAN CORPUSCULAR HGB CONC 33.8 pg (28.0-36.0); MEAN PLATELET VOLUME 7.8 fl; NEUTROPHILE ABSOLUTE 14.6 Th/cmm (1.8-8.0); PLATELET COUNT 92 Th/cmm (150-400); RED BLOOD COUNT 3.53 Mil/cmm (3.80-5.10); RED CELL DISTRIBUTION WIDTH 14.2 % (11.5-20.0)
[2017-02-01 05:23] LABS: ALB/GLOB RATIO 2.5 (1.0-1.8); ALKALINE PHOSPHATASE 156 U/L (34-104); ANION GAP 7.9 (7.0-16.0); BILIRUBIN,TOTAL 2.6 mg/dL (0.3-1.0); BUN - UREA NITROGEN 23 mg/dL (7-25); BUN/CREATININE RATIO 25.6; CALCIUM SERUM 9.5 mg/dL (8.6-10.3); CARBON DIOXIDE 28.1 mEq/L (21.0-31.0); CHLORIDE 98 mEq/L (98-107); CREATININE - SERUM 0.9 mg/dL (0.6-1.2); GLUCOSE 141 mg/dL (70-105); SGOT 24 U/L (13-39); SGPT/ALT 31 U/L (7-52); SODIUM SERUM 130 mEq/L (136-145)
[2017-02-01 05:34] LABS: WHITE BLOOD COUNT 16.1 Th/cmm (4.8-10.8)
[2017-02-01 06:05] LABS: URINE BILIRUBIN NEGATIVE (NEGATIVE); URINE BLOOD LARGE (NEGATIVE); URINE GLUCOSE (UA) NEGATIVE (NEGATIVE); URINE KETONE TRACE mg/dL (NEGATIVE); URINE PROTEIN NEGATIVE (NEGATIVE); URINE UROBILINOGEN 0.2 E.U./dL (0.2 - 1.0)
[2017-02-01 06:05] LABS: BAND NEUTROPHILE 5 % (0-10); EOSINOPHIL 1 % (0-5); NEUTROPHILS 80 % (40-80); TOTAL CELLS COUNTED 100
[2017-02-01 06:30] LABS: URINE COLOR YELLOW
[2017-02-01 06:32] LABS: URINE EPITHELIAL CELLS OCCASIONAL /lpf (FEW); URINE WBC 0-2 /hpf (0-5)
[2017-02-01 06:33] LABS: URINE BACTERIA FEW /hpf (NONE SEEN)
--- NOTE | 2017-02-01 08:24 | General Progress Note ---
Subjective - Review of Systems Service Date: 02/01/17 Subjective: Patient is awake, alert, no acute distress. States that her abdomen is feeling better. eating well. BM last night. States last BM was 2 days ago. Patient complains of joint pain. Patient requests topical gel for pain. Objective - Results Result Diagrams: 02/01/17 04:55 02/01/17 04:55 Recent Labs: Laboratory Last Values WBC 16.1 Th/cmm (4.8-10.8) H 02/01/17 04:55 RBC 3.53 Mil/cmm (3.80-5.10) L 02/01/17 04:55 Hgb 12.2 gm/dL (12-16) 02/01/17 04:55 Hct 36.1 % (41.0-60) L 02/01/17 04:55 MCV 102.4 fl (81-100) H 02/01/17 04:55 MCH 34.6 pg (27.0-31.0) H 02/01/17 04:55 MCHC Differential 33.8 pg (28.0-36.0) 02/01/17 04:55 RDW 14.2 % (11.5-20.0) 02/01/17 04:55 Plt Count 92 Th/cmm (150-400) L 02/01/17 04:55 MPV 7.8 fl 02/01/17 04:55 Band Neutrophils % 5 % (0-10) 02/01/17 04:55 Neutrophils (Manual) 80 % (40-80) 02/01/17 04:55 Lymphocytes 10 % (20-50) L 02/01/17 04:55 Monocytes 4 % (2-10) 02/01/17 04:55 Eosinophils 1 % (0-5) 02/01/17 04:55 Platelet Estimate DECREASED PLATELETS (NORMAL) 01/31/17 04:35 PT 14.1 SECONDS (9.5-11.5) H 01/29/17 12:50 INR 1.34 (0.5-1.4) 01/29/17 12:50 Sodium 130 mEq/L (136-145) L 02/01/17 04:55 Potassium 4.0 mEq/L (3.5-5.1) 02/01/17 04:55 Chloride 98 mEq/L (98-107) 02/01/17 04:55 Carbon Dioxide 28.1 mEq/L (21.0-31.0) 02/01/17 04:55 Anion Gap 7.9 (7.0-16.0) 02/01/17 04:55 BUN 23 mg/dL (7-25) 02/01/17 04:55 Creatinine 0.9 mg/dL (0.6-1.2) 02/01/17 04:55 Est GFR ( Amer) > 60.0 ml/min (>90) 02/01/17 04:55 Est GFR (Non-Af Amer) > 60.0 ml/min 02/01/17 04:55 BUN/Creatinine Ratio 25.6 02/01/17 04:55 Glucose 141 mg/dL (70-105) H 02/01/17 04:55 Whole Bld Lactic Acid 1.80 mmol/L (0.60-1.99) 02/01/17 04:55 Calcium 9.5 mg/dL (8.6-10.3) 02/01/17 04:55 Magnesium 2.2 mg/dL (1.9-2.7) 01/29/17 12:50 Total Bilirubin 2.6 mg/dL (0.3-1.0) H 02/01/17 04:55 AST 24 U/L (13-39) 02/01/17 04:55 ALT 31 U/L (7-52) 02/01/17 04:55 Alkaline Phosphatase 156 U/L (34-104) H 02/01/17 04:55 Ammonia 46 umol/L (16-53) 01/31/17 07:21 Total Protein 4.9 gm/dL (6.0-8.3) L 02/01/17 04:55 Albumin 3.5 gm/dL (3.7-5.3) L 02/01/17 04:55 Globulin 1.4 gm/dL 02/01/17 04:55 Albumin/Globulin Ratio 2.5 (1.0-1.8) H 02/01/17 04:55 Free T4 0.89 ng/dL (0.82-1.77) 01/29/17 12:50 TSH 1.63 uIU/ml (0.34-5.60) 01/29/17 12:50 Urine Source [place] 02/01/17 05:30 Urine Color YELLOW 02/01/17 05:30 Urine Clarity HAZY (CLEAR) 02/01/17 05:30 Urine pH 6.0 (4.6 - 8.0) 02/01/17 05:30 Ur Specific [place] 1.010 (1.005-1.030) 02/01/17 05:30 Urine Protein NEGATIVE mg/dL (NEGATIVE) 02/01/17 05:30 Urine Glucose (UA) NEGATIVE mg/dL (NEGATIVE) 02/01/17 05:30 Urine Ketones TRACE mg/dL (NEGATIVE) 02/01/17 05:30 Urine Blood LARGE (NEGATIVE) H 02/01/17 05:30 Urine Nitrate NEGATIVE (NEGATIVE) 02/01/17 05:30 Urine Bilirubin NEGATIVE (NEGATIVE) 02/01/17 05:30 Urine Urobilinogen 0.2 E.U./dL (0.2 - 1.0) 02/01/17 05:30 Ur Leukocyte Esterase TRACE (NEGATIVE) H 02/01/17 05:30 Urine RBC 5-10 /hpf (0-5) H 02/01/17 05:30 Urine WBC 0-2 /hpf (0-5) 02/01/17 05:30 Ur Epithelial Cells OCCASIONAL /lpf (FEW) 02/01/17 05:30 Urine Bacteria FEW /hpf (NONE SEEN) 02/01/17 05:30 Urine Yeast MANY /hpf (NONE SEEN) H 02/01/17 05:30 - Physical Exam Vitals and I&O: Vital Signs Temp 96.9 F 02/01/17 08:00 Pulse 105 02/01/17 08:00 Resp 16 02/01/17 08:00 BP 99/68 02/01/17 08:00 Pulse Ox 97 02/01/17 08:00 Intake & Output 01/31/17 02/01/17 02/01/17 18:59 06:59 18:59 Intake Total 25.833 450 Balance 25.833 450 Intake: Intake, IV Amount 25.833 450 Albumin 25% 25gm/100mL 25 200 gm In 100 ml @ 100 mls/ hr IV Q12HR [facility] Rx#: [id number] KCL 20mEq/100mL Premix 20 25.833 meq In 100 ml @ 50 mls/ hr IV Q2H [facility] Rx#: [id number] cefTRIAXone 1 gm In 50 Sodium Chloride 0.9% 50 ml @ 100 mls/hr IV Q24HR [facility] Rx#:[id number] metroNIDAZOLE 500mg/NS 200 100mL 500 mg In 100 ml @ 100 mls/hr IV Q8HR [facility] Rx #:[id number] Active Medications: Current Medications Acetaminophen (Tylenol) 325 mg PO Q4H PRN PRN Reason: MOD PAIN, FEVER 101 Stop: 03/31/17 06:40 Famotidine (Pepcid) 20 mg PO BID [facility] Stop: 03/31/17 08:59 Last Admin: 01/31/17 17:27 Dose: Not Given Fluconazole (Diflucan) 100 mg PO DAILY [facility] Stop: 04/02/17 08:59 Folic Acid (Folate) 1 mg PO DAILY [facility] Stop: 04/01/17 08:59 Last Admin: 01/31/17 09:19 Dose: 1 mg Furosemide (Lasix) 20 mg PO DAILY [facility] Stop: 03/31/17 08:59 Last Admin: 01/31/17 09:20 Dose: Not Given Albumin Human (Albuminar 25%) 25 gm in 100 mls @ 100 mls/hr IV Q12HR [facility] Stop: 02/03/17 20:59 Last Infusion: 01/31/17 22:31 Dose: Infused Ceftriaxone Sodium 1 gm/ (Sodium Chloride) 50 mls @ 100 mls/hr IV Q24HR [facility] Stop: 03/31/17 08:59 Last Infusion: 01/31/17 19:41 Dose: Infused Metronidazole (Flagyl) 500 mg in 100 mls @ 100 mls/hr IV Q8HR [facility] Stop: 03/30/17 20:59 Last Infusion: 01/31/17 22:31 Dose: Infused Lactulose (Cephulac) 20 gm PO DAILY PRN PRN Reason: bowel management Stop: 03/31/17 06:40 Magnesium Hydroxide (Milk Of Magnesia) 30 ml PO DAILY PRN PRN Reason: IF NO BM FOR 3 DAYS Stop: 03/31/17 06:40 Magnesium Oxide (Mag-Oxide) 400 mg PO BID [facility] Stop: 03/31/17 16:59 Last Admin: 01/31/17 17:27 Dose: 400 mg Multivitamins/Vitamin C (Theragran) 1 tab PO DAILY [facility] Stop: 04/01/17 08:59 Last Admin: 01/31/17 09:19 Dose: 1 tab Pantoprazole Sodium (Protonix) 40 mg IVP DAILY [facility] Stop: 03/31/17 08:59 Last Admin: 01/31/17 09:24 Dose: 40 mg Senna (Senna) 8.6 mg PO HS [facility] Stop: 03/31/17 20:59 Last Admin: 01/31/17 20:51 Dose: Not Given Sodium Chloride (Nacl Tab) 0.5 gm PO DAILY [facility] Stop: 03/31/17 08:59 Last Admin: 01/31/17 09:16 Dose: 0.5 gm Spironolactone (Aldactone) 25 mg PO DAILY [facility] Stop: 03/31/17 08:59 Last Admin: 01/31/17 09:21 Dose: Not Given General: Alert, Oriented x3, No acute distress HEENT: Atraumatic, PERRLA, EOMI Neck: Supple Cardiovascular: Regular rate, Normal S1, Normal S2 Lungs: Clear to auscultation Abdomen: Bowel sounds, Hepatomegaly, Distended Extremities: no Clubbing, no Cyanosis, no Edema - Procedures Procedures: Procedures Procedure Code Date ABD PARACENTESIS W/IMAGING 42888 01/29/17 DRAINAGE OF PERITONEAL CAVITY, PERCUTANEOUS APPROACH [id number] 01/29/17 Assessment/Plan - Problem List Patient Problems: All Active Problems ABDOMINAL DISTENTION (Acute) Acute on chronic alcoholic liver disease (Acute) K70.9 Anemia (Acute) D64.9 Chronic kidney disease (Acute) N18.9 Coagulopathy (Acute) Hypokalemia (Acute) E87.6 Sepsis (Acute) UTI (urinary tract infection) (Acute) - Assessment Assessment: Acute Alcoholic Liver Cirrhosis S/P US guided paracentesis anemia Sepsis hypokalemia CKD UTI constipation arthritis - Plan Plan: Acute Alcoholic Liver Cirrhosis ... GI consults. hepatitis panel S/P US guided paracentesis hyponatremia anemia Sepsis WBC's 26.7K --> 18.9K ... ID consult. continue IV rocephin and flagyl. hypokalemia ... add PO KCL, CMP tomorrow CKD UTI constipation arthritis. Nutritional Asmnt/Malnutr-PDOC - Dietary Evaluation Malnutrition Findings (Please click <Entered> for more info): Nutritional Asmnt/Malnutrition Start: 01/30/17 11: 00 Text: Status: Complete Freq: Document 01/30/17 11:00 SIMONSascha (Rec: 01/30/17 11:17 LON DELORES- [email or web address]) Nutritional Asmnt/Malnutrition Patient General Information Nutritional Screening High Risk Diagnosis Acute liver failure S/p paracentesis Pertinent Medical Hx/Surgical Hx Alcoholic liver cirrhosis Subjective Information Patient in bed at time of visit. Per nursing notes, patient is on hospice care. Paracentesis performed on admission with 8L removed. Bilateral buttocks wound ulceration noted. Current Diet Order/ Nutrition Support Regular Patient / S.O Not Indicated Pertinent Medications pepcid, folate, lasix, lactulose, MOM, mag-oxide, flagyl, theragran, protonix, senna Pertinent Labs (01/30) Na 129, alkaline phosphatase 213, albumin 3.2 Nutritional Hx/Data Height 1.6 m Height (Calculated Centimeters) 160.0 Current Weight (lbs) 57.606 kg Weight (Calculated Kilograms) 57.6 Weight (Calculated Grams) 65755.2 [place] Body Weight 115 % [place] Body Weight 110 Body Mass Index (BMI) 22.4 Weight Status Approriate GI Symptoms GI Symptoms None Last BM Prior to admission Difficult in: None Food Allergies No Cultural/Ethnic/Yazidism Belief None indicated Usual diet at home Regular Skin Integrity/Comment: Nura 16, right upper arm skin teear, bruises on Bilateral lower and upper extremitites, ulceration of bilateral buttocks wound Estimated Nutritional Goals BEE in Kcals: Using Current wt Calories/Kcals/Kg 57.7kg BW (25-30 kcal/kg) Kcals Calculated 7068-0702 kcal/day Protein: Using Current wt Protein g/k.1-1.3 mg/kg Protein Calculated 65-75gm/day Fluid: ml ~3013-8948 ml/day (30-35 ml/kg ) Nutritional Problem 2. Problem Problem increased nutrient needs related to Etiology impaired skin integrity aeb Signs/Symptoms: buttocks wound 1. Problem Problem Altered nutrition related lab values related to Etiology electrolyte/fluid imbalance aeb Signs/Symptoms: Na 129 Intervention/Recommendation Comments 1. Consider modifying diet to 2gm sodium due to paracentesis /hyponatremia. 2. MD to consider fluid restriction as needed. 3. Encourage oral intake of meals/protein rich foods for wound healing. If oral intake is inadequate, consider protein supplementations. Expected Outcomes/Goals Expected Outcomes/Goals nutrition related lab values normalize, weight stable, oral intake to meet >75% of nutrient needs.
[2017-02-01] MEDS: Albumin 25% 25gm/100mL 25 GM/100 ML BTL IV SCH ×2 (09:04→23:15)
[2017-02-01] MEDS: Multivitamin Tab PO SCH (09:05)
[2017-02-01] MEDS: cefTRIAXone 1 GM in Sodium Chloride 0.9% 50 ML IV SCH (09:12)
[2017-02-01] MEDS: metroNIDAZOLE 500mg/NS 100mL 500 MG/100 ML BAG IV SCH (12:32)
--- NOTE | 2017-02-02 05:11 | Consultation ---
DATE OF CONSULTATION: 01/31/2017 REFERRING PHYSICIAN: Dr. Ignacio. REASON FOR CONSULTATION: Leukocytosis. HISTORY OF PRESENT ILLNESS: The patient is a 61-year-old female with a past medical history of alcoholic liver disease, end-stage liver disease, end-stage liver disease, had abdominal paracentesis performed 8 times by now in last 3-4 months. Again, she came in for distended abdomen with dense ascites. On initial evaluation, the patient's temperature was 97.7 degrees Fahrenheit and WBC count was 26,700, so ID consult was called for further antibiotic management. Meanwhile, the patient was started on Rocephin and Flagyl, aspartame, however patient denies any abdominal pain. PAST MEDICAL HISTORY: Includes end-stage liver disease, asthma, alcohol abuse and alcoholic cirrhosis. REVIEW OF SYSTEMS: GENERAL: The patient denies any fever or chills. HEENT: No diplopia, photophobia, sore throat. RESPIRATORY: No cough, no shortness of breath. CARDIOVASCULAR: No chest pain or palpitation. GASTROINTESTINAL: No nausea, no vomiting. The patient has distended abdomen. No abdominal pain. No diarrhea, no constipation. GENITOURINARY: No dysuria, no hematuria. FAMILY HISTORY: Noncontributory. SOCIAL HISTORY: The patient lives in a nursing facility. No history of smoking, alcohol or drug use. PHYSICAL EXAMINATION: VITAL SIGNS: Shows temperature is 98.4, pulse 108, respirations 19, blood pressure 99/66. GENERAL: The patient is comfortable lying in the bed, not in acute distress. HEENT: Head is normocephalic, atraumatic. Oral cavity moist, pink tongue. Eyes: Pallor is present. Icterus is present. PERRLA, EOMI. NECK: Supple. No JVD. No carotid bruit. Trachea in midline. CHEST: Bilateral breath sounds. No crackles or wheezing. HEART: S1, S2 within normal limit. Regular rhythm, no murmur, no gallop. ABDOMEN: Soft, distended. Bowel sounds present. Nontender. EXTREMITIES: No cyanosis, no clubbing, no edema. NEUROLOGICAL: Alert, awake, oriented x 3. LABORATORY DATA: Current lab shows WBC count is 17,400, hemoglobin 12, hematocrit 34.2, platelets are 97,000. Neutrophils 79%. Sodium is 128, potassium 3.4, chloride 95, bicarbonate is 27, BUN is 28, creatinine 2.9, glucose 161.8. Lactic acid was 2.52. IMPRESSION: 1. Lactic acidosis. 2. Leukocytosis, most likely reactive versus sepsis. 3. Decompensated liver disease, end-stage liver disease, secondary alcohol abuse. 4. Alcohol abuse. 5. Protein calorie malnutrition. RECOMMENDATIONS: We will continue Norma. [facility]# [id number]
--- NOTE | 2017-02-02 07:47 | General Progress Note ---
Subjective - Review of Systems Service Date: 02/02/17 Subjective: Patient is awake, alert, no acute distress. States that her abdomen is feeling better. eating well. BM last night. States last BM was 2 days ago. Patient complains of joint pain. Patient requests topical gel for pain. Patient feeling much better today. Objective - Results Result Diagrams: 02/01/17 04:55 02/01/17 04:55 Recent Labs: Laboratory Last Values WBC 16.1 Th/cmm (4.8-10.8) H 02/01/17 04:55 RBC 3.53 Mil/cmm (3.80-5.10) L 02/01/17 04:55 Hgb 12.2 gm/dL (12-16) 02/01/17 04:55 Hct 36.1 % (41.0-60) L 02/01/17 04:55 MCV 102.4 fl (81-100) H 02/01/17 04:55 MCH 34.6 pg (27.0-31.0) H 02/01/17 04:55 MCHC Differential 33.8 pg (28.0-36.0) 02/01/17 04:55 RDW 14.2 % (11.5-20.0) 02/01/17 04:55 Plt Count 92 Th/cmm (150-400) L 02/01/17 04:55 MPV 7.8 fl 02/01/17 04:55 Band Neutrophils % 5 % (0-10) 02/01/17 04:55 Neutrophils (Manual) 80 % (40-80) 02/01/17 04:55 Lymphocytes 10 % (20-50) L 02/01/17 04:55 Monocytes 4 % (2-10) 02/01/17 04:55 Eosinophils 1 % (0-5) 02/01/17 04:55 Platelet Estimate DECREASED PLATELETS (NORMAL) 01/31/17 04:35 PT 14.1 SECONDS (9.5-11.5) H 01/29/17 12:50 INR 1.34 (0.5-1.4) 01/29/17 12:50 Sodium 130 mEq/L (136-145) L 02/01/17 04:55 Potassium 4.0 mEq/L (3.5-5.1) 02/01/17 04:55 Chloride 98 mEq/L (98-107) 02/01/17 04:55 Carbon Dioxide 28.1 mEq/L (21.0-31.0) 02/01/17 04:55 Anion Gap 7.9 (7.0-16.0) 02/01/17 04:55 BUN 23 mg/dL (7-25) 02/01/17 04:55 Creatinine 0.9 mg/dL (0.6-1.2) 02/01/17 04:55 Est GFR ( Amer) > 60.0 ml/min (>90) 02/01/17 04:55 Est GFR (Non-Af Amer) > 60.0 ml/min 02/01/17 04:55 BUN/Creatinine Ratio 25.6 02/01/17 04:55 Glucose 141 mg/dL (70-105) H 02/01/17 04:55 Whole Bld Lactic Acid 1.80 mmol/L (0.60-1.99) 02/01/17 04:55 Calcium 9.5 mg/dL (8.6-10.3) 02/01/17 04:55 Magnesium 2.2 mg/dL (1.9-2.7) 01/29/17 12:50 Total Bilirubin 2.6 mg/dL (0.3-1.0) H 02/01/17 04:55 AST 24 U/L (13-39) 02/01/17 04:55 ALT 31 U/L (7-52) 02/01/17 04:55 Alkaline Phosphatase 156 U/L (34-104) H 02/01/17 04:55 Ammonia 46 umol/L (16-53) 01/31/17 07:21 Total Protein 4.9 gm/dL (6.0-8.3) L 02/01/17 04:55 Albumin 3.5 gm/dL (3.7-5.3) L 02/01/17 04:55 Globulin 1.4 gm/dL 02/01/17 04:55 Albumin/Globulin Ratio 2.5 (1.0-1.8) H 02/01/17 04:55 Free T4 0.89 ng/dL (0.82-1.77) 01/29/17 12:50 TSH 1.63 uIU/ml (0.34-5.60) 01/29/17 12:50 Urine Source [place] 02/01/17 05:30 Urine Color YELLOW 02/01/17 05:30 Urine Clarity HAZY (CLEAR) 02/01/17 05:30 Urine pH 6.0 (4.6 - 8.0) 02/01/17 05:30 Ur Specific [place] 1.010 (1.005-1.030) 02/01/17 05:30 Urine Protein NEGATIVE mg/dL (NEGATIVE) 02/01/17 05:30 Urine Glucose (UA) NEGATIVE mg/dL (NEGATIVE) 02/01/17 05:30 Urine Ketones TRACE mg/dL (NEGATIVE) 02/01/17 05:30 Urine Blood LARGE (NEGATIVE) H 02/01/17 05:30 Urine Nitrate NEGATIVE (NEGATIVE) 02/01/17 05:30 Urine Bilirubin NEGATIVE (NEGATIVE) 02/01/17 05:30 Urine Urobilinogen 0.2 E.U./dL (0.2 - 1.0) 02/01/17 05:30 Ur Leukocyte Esterase TRACE (NEGATIVE) H 02/01/17 05:30 Urine RBC 5-10 /hpf (0-5) H 02/01/17 05:30 Urine WBC 0-2 /hpf (0-5) 02/01/17 05:30 Ur Epithelial Cells OCCASIONAL /lpf (FEW) 02/01/17 05:30 Urine Bacteria FEW /hpf (NONE SEEN) 02/01/17 05:30 Urine Yeast MANY /hpf (NONE SEEN) H 02/01/17 05:30 - Physical Exam Vitals and I&O: Vital Signs Temp 97.8 F 02/02/17 00:00 Pulse 103 02/02/17 00:00 Resp 18 02/02/17 00:00 BP 104/72 02/02/17 00:00 Pulse Ox 99 02/02/17 00:00 Intake & Output 02/01/17 02/02/17 02/02/17 18:59 06:59 18:59 Intake Total 1170.000 100 Balance 1170.000 100 Weight (lbs) 72.121 kg Intake: Intake, IV Amount 150.000 100 Albumin 25% 25gm/100mL 25 100.000 100 gm In 100 ml @ 100 mls/ hr IV Q12HR [facility] Rx#: [id number] cefTRIAXone 1 gm In 50 Sodium Chloride 0.9% 50 ml @ 100 mls/hr IV Q24HR [facility] Rx#:[id number] Oral 1020 Other: # Voids 1 # Bowel Movements 1 Active Medications: Current Medications Acetaminophen (Tylenol) 325 mg PO Q4H PRN PRN Reason: MOD PAIN, FEVER 101 Stop: 03/31/17 06:40 Famotidine (Pepcid) 20 mg PO BID [facility] Stop: 03/31/17 08:59 Last Admin: 02/01/17 17:38 Dose: 20 mg Fluconazole (Diflucan) 100 mg PO DAILY [facility] Stop: 04/02/17 08:59 Last Admin: 02/01/17 09:03 Dose: 100 mg Folic Acid (Folate) 1 mg PO DAILY [facility] Stop: 04/01/17 08:59 Last Admin: 02/01/17 09:03 Dose: 1 mg Furosemide (Lasix) 40 mg PO DAILY [facility] Stop: 04/02/17 15:59 Last Admin: 02/01/17 17:13 Dose: Not Given Albumin Human (Albuminar 25%) 25 gm in 100 mls @ 100 mls/hr IV Q12HR [facility] Stop: 02/03/17 20:59 Last Infusion: 02/02/17 00:15 Dose: Infused Ceftriaxone Sodium 1 gm/ (Sodium Chloride) 50 mls @ 100 mls/hr IV Q24HR [facility] Stop: 03/31/17 08:59 Last Infusion: 02/01/17 11:20 Dose: Infused Metronidazole (Flagyl) 500 mg in 100 mls @ 100 mls/hr IV Q8HR [facility] Stop: 03/30/17 20:59 Last Admin: 02/01/17 12:32 Dose: 100 mls/hr Lactulose (Cephulac) 20 gm PO DAILY PRN PRN Reason: bowel management Stop: 03/31/17 06:40 Magnesium Hydroxide (Milk Of Magnesia) 30 ml PO DAILY PRN PRN Reason: IF NO BM FOR 3 DAYS Stop: 03/31/17 06:40 Magnesium Oxide (Mag-Oxide) 400 mg PO BID [facility] Stop: 03/31/17 16:59 Last Admin: 02/01/17 17:37 Dose: 400 mg Multivitamins/Vitamin C (Theragran) 1 tab PO DAILY [facility] Stop: 04/01/17 08:59 Last Admin: 02/01/17 09:05 Dose: 1 tab Pantoprazole Sodium (Protonix) 40 mg IVP DAILY [facility] Stop: 03/31/17 08:59 Last Admin: 02/01/17 09:03 Dose: 40 mg Senna (Senna) 8.6 mg PO HS [facility] Stop: 03/31/17 20:59 Last Admin: 02/01/17 22:10 Dose: Not Given Sodium Chloride (Nacl Tab) 0.5 gm PO DAILY [facility] Stop: 03/31/17 08:59 Last Admin: 02/01/17 09:04 Dose: 0.5 gm Spironolactone (Aldactone) 100 mg PO DAILY [facility] Stop: 04/02/17 15:59 Last Admin: 02/01/17 17:37 Dose: 100 mg General: Alert, Oriented x3, No acute distress HEENT: Atraumatic, PERRLA, EOMI Neck: Supple Cardiovascular: Regular rate, Normal S1, Normal S2 Lungs: Clear to auscultation Abdomen: Bowel sounds, Hepatomegaly, Distended Extremities: no Clubbing, no Cyanosis, no Edema - Procedures Procedures: Procedures Procedure Code Date ABD PARACENTESIS W/IMAGING 01795 01/29/17 DRAINAGE OF PERITONEAL CAVITY, PERCUTANEOUS APPROACH [id number] 01/29/17 Assessment/Plan - Problem List Patient Problems: All Active Problems ABDOMINAL DISTENTION (Acute) Acute on chronic alcoholic liver disease (Acute) K70.9 Anemia (Acute) D64.9 Chronic kidney disease (Acute) N18.9 Coagulopathy (Acute) Hypokalemia (Acute) E87.6 Sepsis (Acute) UTI (urinary tract infection) (Acute) - Assessment Assessment: Acute Alcoholic Liver Cirrhosis S/P US guided paracentesis anemia Sepsis hypokalemia CKD UTI constipation arthritis - Plan Plan: Acute Alcoholic Liver Cirrhosis ... GI consults. hepatitis panel S/P US guided paracentesis hyponatremia ... Na 130+ improved. anemia stable. Leukocytosis ...26.7K -->18.9K -->16K--> ... will repeat CBC today. May consider D/C today if WBC's are improved. Change to PO antibiotics. hypokalemia ... resolved. CKD UTI ... on PO antiobiotics. constipation now resolved. arthritis ... topical voltaren for pain control. Nutritional Asmnt/Malnutr-PDOC - Dietary Evaluation Malnutrition Findings (Please click <Entered> for more info): Nutritional Asmnt/Malnutrition Start: 01/30/17 11: 00 Text: Status: Complete Freq: Document 01/30/17 11:00 IVETTELELORACHEL (Rec: 01/30/17 11:17 SIMONRACHEL ESTRELLA- [email or web address]) Nutritional Asmnt/Malnutrition Patient General Information Nutritional Screening High Risk Diagnosis Acute liver failure S/p paracentesis Pertinent Medical Hx/Surgical Hx Alcoholic liver cirrhosis Subjective Information Patient in bed at time of visit. Per nursing notes, patient is on hospice care. Paracentesis performed on admission with 8L removed. Bilateral buttocks wound ulceration noted. Current Diet Order/ Nutrition Support Regular Patient / S.O Not Indicated Pertinent Medications pepcid, folate, lasix, lactulose, MOM, mag-oxide, flagyl, theragran, protonix, senna Pertinent Labs (01/30) Na 129, alkaline phosphatase 213, albumin 3.2 Nutritional Hx/Data Height 1.6 m Height (Calculated Centimeters) 160.0 Current Weight (lbs) 57.606 kg Weight (Calculated Kilograms) 57.6 Weight (Calculated Grams) 12425.2 [place] Body Weight 115 % [place] Body Weight 110 Body Mass Index (BMI) 22.4 Weight Status Approriate GI Symptoms GI Symptoms None Last BM Prior to admission Difficult in: None Food Allergies No Cultural/Ethnic/Faith Belief None indicated Usual diet at home Regular Skin Integrity/Comment: Nura 16, right upper arm skin teear, bruises on Bilateral lower and upper extremitites, ulceration of bilateral buttocks wound Estimated Nutritional Goals BEE in Kcals: Using Current wt Calories/Kcals/Kg 57.7kg BW (25-30 kcal/kg) Kcals Calculated 1907-7556 kcal/day Protein: Using Current wt Protein g/k.1-1.3 mg/kg Protein Calculated 65-75gm/day Fluid: ml ~1071-5814 ml/day (30-35 ml/kg ) Nutritional Problem 2. Problem Problem increased nutrient needs related to Etiology impaired skin integrity aeb Signs/Symptoms: buttocks wound 1. Problem Problem Altered nutrition related lab values related to Etiology electrolyte/fluid imbalance aeb Signs/Symptoms: Na 129 Intervention/Recommendation Comments 1. Consider modifying diet to 2gm sodium due to paracentesis /hyponatremia. 2. to consider fluid restriction as needed. 3. Encourage oral intake of meals/protein rich foods for wound healing. If oral intake is inadequate, consider protein supplementations. Expected Outcomes/Goals Expected Outcomes/Goals nutrition related lab values normalize, weight stable, oral intake to meet >75% of nutrient needs.
[2017-02-02 09:46] LABS: HEMOGLOBIN 11.1 gm/dL (12-16); MEAN CELL VOLUME 102.6 fl (81-100); MEAN CORPUSCULAR HEMOGLOBIN 35.3 pg (27.0-31.0); MEAN CORPUSCULAR HGB CONC 34.4 pg (28.0-36.0); MEAN PLATELET VOLUME 7.9 fl; NEUTROPHILE ABSOLUTE 13.3 Th/cmm (1.8-8.0); PLATELET COUNT 85 Th/cmm (150-400); RED BLOOD COUNT 3.14 Mil/cmm (3.80-5.10); RED CELL DISTRIBUTION WIDTH 14.4 % (11.5-20.0)
[2017-02-02 09:51] LABS: WHITE BLOOD COUNT 14.6 Th/cmm (4.8-10.8)
[2017-02-02 09:52] LABS: HEMATOCRIT 32.2 % (41.0-60)
[2017-02-02] MEDS: cefTRIAXone 1 GM in Sodium Chloride 0.9% 50 ML IV SCH (09:59)
[2017-02-02] MEDS: Multivitamin Tab PO SCH (10:01)
[2017-02-02 10:08] LABS: ANION GAP 7.9 (7.0-16.0); BUN - UREA NITROGEN 19 mg/dL (7-25); BUN/CREATININE RATIO 27.1; CALCIUM SERUM 9.1 mg/dL (8.6-10.3); CHLORIDE 95 mEq/L (98-107); CREATININE - SERUM 0.7 mg/dL (0.6-1.2); GLUCOSE 212 mg/dL (70-105); POTASSIUM SERUM 3.9 mEq/L (3.5-5.1); SODIUM SERUM 125 mEq/L (136-145)
[2017-02-02 10:30] LABS: TOTAL CELLS COUNTED 100
[2017-02-02 10:31] LABS: BAND NEUTROPHILE 6 % (0-10); EOSINOPHIL 2 % (0-5); NEUTROPHILS 80 % (40-80); PLATELET ESTIMATE SLIGHT DECREASED (NORMAL)
--- NOTE | 2017-02-02 10:42 | Infectious Disease Prog Note ---
Infectious Disease Subjective - Review of Systems Service Date: 02/02/17 Subjective: Doing well. no change. Infectious Disease Objective - Results Result Diagrams: 02/02/17 09:25 02/02/17 09:25 Recent Labs: Laboratory Last Values WBC 14.6 Th/cmm (4.8-10.8) H 02/02/17 09:25 RBC 3.14 Mil/cmm (3.80-5.10) L 02/02/17 09:25 Hgb 11.1 gm/dL (12-16) L 02/02/17 09:25 Hct 32.2 % (41.0-60) L D 02/02/17 09:25 MCV 102.6 fl (81-100) H 02/02/17 09:25 MCH 35.3 pg (27.0-31.0) H 02/02/17 09:25 MCHC Differential 34.4 pg (28.0-36.0) 02/02/17 09:25 RDW 14.4 % (11.5-20.0) 02/02/17 09:25 Plt Count 85 Th/cmm (150-400) L 02/02/17 09:25 MPV 7.9 fl 02/02/17 09:25 Band Neutrophils % 6 % (0-10) 02/02/17 09:25 Neutrophils (Manual) 80 % (40-80) 02/02/17 09:25 Lymphocytes 9 % (20-50) L 02/02/17 09:25 Monocytes 3 % (2-10) 02/02/17 09:25 Eosinophils 2 % (0-5) 02/02/17 09:25 Platelet Estimate SLIGHT DECREASED (NORMAL) 02/02/17 09:25 PT 14.1 SECONDS (9.5-11.5) H 01/29/17 12:50 INR 1.34 (0.5-1.4) 01/29/17 12:50 Sodium 125 mEq/L (136-145) L 02/02/17 09:25 Potassium 3.9 mEq/L (3.5-5.1) 02/02/17 09:25 Chloride 95 mEq/L (98-107) L 02/02/17 09:25 Carbon Dioxide 26.0 mEq/L (21.0-31.0) 02/02/17 09:25 Anion Gap 7.9 (7.0-16.0) 02/02/17 09:25 BUN 19 mg/dL (7-25) 02/02/17 09:25 Creatinine 0.7 mg/dL (0.6-1.2) 02/02/17 09:25 Est GFR ( Amer) > 60.0 ml/min (>90) 02/02/17 09:25 Est GFR (Non-Af Amer) > 60.0 ml/min 02/02/17 09:25 BUN/Creatinine Ratio 27.1 02/02/17 09:25 Glucose 212 mg/dL (70-105) H 02/02/17 09:25 Whole Bld Lactic Acid 1.80 mmol/L (0.60-1.99) 02/01/17 04:55 Calcium 9.1 mg/dL (8.6-10.3) 02/02/17 09:25 Magnesium 2.2 mg/dL (1.9-2.7) 01/29/17 12:50 Total Bilirubin 2.6 mg/dL (0.3-1.0) H 02/01/17 04:55 AST 24 U/L (13-39) 02/01/17 04:55 ALT 31 U/L (7-52) 02/01/17 04:55 Alkaline Phosphatase 156 U/L (34-104) H 02/01/17 04:55 Ammonia 46 umol/L (16-53) 01/31/17 07:21 Total Protein 4.9 gm/dL (6.0-8.3) L 02/01/17 04:55 Albumin 3.5 gm/dL (3.7-5.3) L 02/01/17 04:55 Globulin 1.4 gm/dL 02/01/17 04:55 Albumin/Globulin Ratio 2.5 (1.0-1.8) H 02/01/17 04:55 Free T4 0.89 ng/dL (0.82-1.77) 01/29/17 12:50 TSH 1.63 uIU/ml (0.34-5.60) 01/29/17 12:50 Urine Source [place] 02/01/17 05:30 Urine Color YELLOW 02/01/17 05:30 Urine Clarity HAZY (CLEAR) 02/01/17 05:30 Urine pH 6.0 (4.6 - 8.0) 02/01/17 05:30 Ur Specific [place] 1.010 (1.005-1.030) 02/01/17 05:30 Urine Protein NEGATIVE mg/dL (NEGATIVE) 02/01/17 05:30 Urine Glucose (UA) NEGATIVE mg/dL (NEGATIVE) 02/01/17 05:30 Urine Ketones TRACE mg/dL (NEGATIVE) 02/01/17 05:30 Urine Blood LARGE (NEGATIVE) H 02/01/17 05:30 Urine Nitrate NEGATIVE (NEGATIVE) 02/01/17 05:30 Urine Bilirubin NEGATIVE (NEGATIVE) 02/01/17 05:30 Urine Urobilinogen 0.2 E.U./dL (0.2 - 1.0) 02/01/17 05:30 Ur Leukocyte Esterase TRACE (NEGATIVE) H 02/01/17 05:30 Urine RBC 5-10 /hpf (0-5) H 02/01/17 05:30 Urine WBC 0-2 /hpf (0-5) 02/01/17 05:30 Ur Epithelial Cells OCCASIONAL /lpf (FEW) 02/01/17 05:30 Urine Bacteria FEW /hpf (NONE SEEN) 02/01/17 05:30 Urine Yeast MANY /hpf (NONE SEEN) H 02/01/17 05:30 - Physical Exam Vitals and I&O: Vital Signs Temp 98.4 F 02/02/17 04:00 Pulse 60 02/02/17 10:02 Resp 18 02/02/17 04:00 BP 105/68 02/02/17 10:02 Pulse Ox 98 02/02/17 04:00 Intake & Output 02/01/17 02/02/17 02/02/17 18:59 06:59 18:59 Intake Total 1170.000 150 Balance 1170.000 150 Weight (lbs) 72.121 kg 57.788 kg Intake: Intake, IV Amount 150.000 100 Albumin 25% 25gm/100mL 25 100.000 100 gm In 100 ml @ 100 mls/ hr IV Q12HR [facility] Rx#: [id number] cefTRIAXone 1 gm In 50 Sodium Chloride 0.9% 50 ml @ 100 mls/hr IV Q24HR [facility]RE[facility] Rx#:[id number] Oral 1020 50 Other: # Voids 1 # Bowel Movements 1 1 Active Medications: Current Medications Acetaminophen (Tylenol) 325 mg PO Q4H PRN PRN Reason: MOD PAIN, FEVER 101 Stop: 03/31/17 06:40 Famotidine (Pepcid) 20 mg PO BID [facility] Stop: 03/31/17 08:59 Last Admin: 02/02/17 10:00 Dose: 20 mg Fluconazole (Diflucan) 100 mg PO DAILY [facility] Stop: 04/02/17 08:59 Last Admin: 02/02/17 10:01 Dose: 100 mg Folic Acid (Folate) 1 mg PO DAILY [facility] Stop: 04/01/17 08:59 Last Admin: 02/02/17 10:00 Dose: 1 mg Furosemide (Lasix) 40 mg PO DAILY [facility] Stop: 04/02/17 15:59 Last Admin: 02/02/17 10:01 Dose: 40 mg Albumin Human (Albuminar 25%) 25 gm in 100 mls @ 100 mls/hr IV Q12HR [facility] Stop: 02/03/17 20:59 Last Infusion: 02/02/17 00:15 Dose: Infused Ceftriaxone Sodium 1 gm/ (Sodium Chloride) 50 mls @ 100 mls/hr IV Q24HR [facility] Stop: 03/31/17 08:59 Last Admin: 02/02/17 09:59 Dose: 100 mls/hr Metronidazole (Flagyl) 500 mg in 100 mls @ 100 mls/hr IV Q8HR [facility] Stop: 03/30/17 20:59 Last Admin: 02/01/17 12:32 Dose: 100 mls/hr Lactulose (Cephulac) 20 gm PO DAILY PRN PRN Reason: bowel management Stop: 03/31/17 06:40 Magnesium Hydroxide (Milk Of Magnesia) 30 ml PO DAILY PRN PRN Reason: IF NO BM FOR 3 DAYS Stop: 03/31/17 06:40 Magnesium Oxide (Mag-Oxide) 400 mg PO BID [facility] Stop: 03/31/17 16:59 Last Admin: 02/02/17 10:01 Dose: 400 mg Multivitamins/Vitamin C (Theragran) 1 tab PO DAILY [facility] Stop: 04/01/17 08:59 Last Admin: 02/02/17 10:01 Dose: 1 tab Pantoprazole Sodium (Protonix) 40 mg IVP DAILY [facility] Stop: 03/31/17 08:59 Last Admin: 02/02/17 10:00 Dose: 40 mg Senna (Senna) 8.6 mg PO HS [facility] Stop: 03/31/17 20:59 Last Admin: 02/01/17 22:10 Dose: Not Given Sodium Chloride (Nacl Tab) 0.5 gm PO DAILY [facility] Stop: 03/31/17 08:59 Last Admin: 02/02/17 10:00 Dose: 0.5 gm Spironolactone (Aldactone) 100 mg PO DAILY [facility] Stop: 04/02/17 15:59 Last Admin: 02/02/17 10:02 Dose: 100 mg General: no acute distress, cachectic HEENT: atraumatic, normocephalic, PERRLA, EOMI, moist mucous membrane Neck: supple, no thyromegaly, no lymphadenopathy Cardiovascular: S1S2, regular, systolic murmur Lungs: clear to auscultation bilaterally, clear to percussion Abdomen: soft, distended, no tender, no mass, no rebound Extremities: edema, no cyanosis, no clubbing Neurological: awake, alert Skin: intact - Procedures Procedures: Procedures Procedure Code Date ABD PARACENTESIS W/IMAGING 54956 01/29/17 DRAINAGE OF PERITONEAL CAVITY, PERCUTANEOUS APPROACH [id number] 01/29/17 Infectious Disease Assmt/Plan - Problem List Patient Problems: All Active Problems ABDOMINAL DISTENTION (Acute) Acute on chronic alcoholic liver disease (Acute) K70.9 Anemia (Acute) D64.9 Chronic kidney disease (Acute) N18.9 Coagulopathy (Acute) Hypokalemia (Acute) E87.6 Sepsis (Acute) UTI (urinary tract infection) (Acute) - Assessment Assessment: IMPRESSION: 1. Lactic acidosis. 2. Leukocytosis, most likely reactive versus sepsis. 3. Decompensated liver disease, end-stage liver disease, secondary alcohol abuse. 4. Alcohol abuse. 5. Protein calorie malnutrition. RECOMMENDATIONS: We will continue Rocephin and Flagyl. Nutritional Asmnt/Malnutr-PDOC - Dietary Evaluation Malnutrition Findings (Please click <Entered> for more info): Nutritional Asmnt/Malnutrition Start: 01/30/17 11: 00 Text: Status: Complete Freq: Document 01/30/17 11:00 LON (Rec: 01/30/17 11:17 LON ESTRELLA- [email or web address]) Nutritional Asmnt/Malnutrition Patient General Information Nutritional Screening High Risk Diagnosis Acute liver failure S/p paracentesis Pertinent Medical Hx/Surgical Hx Alcoholic liver cirrhosis Subjective Information Patient in bed at time of visit. Per nursing notes, patient is on hospice care. Paracentesis performed on admission with 8L removed. Bilateral buttocks wound ulceration noted. Current Diet Order/ Nutrition Support Regular Patient / S.O Not Indicated Pertinent Medications pepcid, folate, lasix, lactulose, MOM, mag-oxide, flagyl, theragran, protonix, senna Pertinent Labs (01/30) Na 129, alkaline phosphatase 213, albumin 3.2 Nutritional Hx/Data Height 1.6 m Height (Calculated Centimeters) 160.0 Current Weight (lbs) 57.606 kg Weight (Calculated Kilograms) 57.6 Weight (Calculated Grams) 45854.2 Rose Body Weight 115 % Rose Body Weight 110 Body Mass Index (BMI) 22.4 Weight Status Approriate GI Symptoms GI Symptoms None Last BM Prior to admission Difficult in: None Food Allergies No Cultural/Ethnic/Zoroastrian Belief None indicated Usual diet at home Regular Skin Integrity/Comment: Nura 16, right upper arm skin teear, bruises on Bilateral lower and upper extremitites, ulceration of bilateral buttocks wound Estimated Nutritional Goals BEE in Kcals: Using Current wt Calories/Kcals/Kg 57.7kg BW (25-30 kcal/kg) Kcals Calculated 0770-4968 kcal/day Protein: Using Current wt Protein g/k.1-1.3 mg/kg Protein Calculated 65-75gm/day Fluid: ml ~0815-7694 ml/day (30-35 ml/kg ) Nutritional Problem 2. Problem Problem increased nutrient needs related to Etiology impaired skin integrity aeb Signs/Symptoms: buttocks wound 1. Problem Problem Altered nutrition related lab values related to Etiology electrolyte/fluid imbalance aeb Signs/Symptoms: Na 129 Intervention/Recommendation Comments 1. Consider modifying diet to 2gm sodium due to paracentesis /hyponatremia. 2. MD to consider fluid restriction as needed. 3. Encourage oral intake of meals/protein rich foods for wound healing. If oral intake is inadequate, consider protein supplementations. Expected Outcomes/Goals Expected Outcomes/Goals nutrition related lab values normalize, weight stable, oral intake to meet >75% of nutrient needs.
[2017-02-02] MEDS: Albumin 25% 25gm/100mL 25 GM/100 ML BTL IV SCH (10:52)
--- NOTE | 2017-02-03 17:41 | Discharge Summary ---
DATE OF DISCHARGE: 02/02/2017 PRELIMINARY DIAGNOSES: 1. Acute alcoholic liver cirrhosis, status post ultrasound-guided paracentesis. 2. Hyponatremia. 3. Hypokalemia. 4. Anemia. 5. Leukocytosis of a white count of 26,000. 6. Chronic kidney disease. 7. Urinary tract infection. DISCHARGE DIAGNOSES: 1. Acute alcoholic liver cirrhosis, status post ultrasound-guided paracentesis. 2. Hyponatremia. 3. Hypokalemia. 4. Anemia. 5. Leukocytosis of a white count of 26,000. 6. Chronic kidney disease. 7. Urinary tract infection. BRIEF HISTORY OF PRESENT ILLNESS: This is a 61-year-old female who presents to [facility] ER for abdominal swelling and tenderness for the past few days. The patient has a history of alcohol liver cirrhosis and was seen approximately 1 month ago for similar complaints during which she underwent an ultrasound-guided paracentesis. The patient returns to the ER with similar complaints of abdominal distention, had undergone an ultrasound-guided paracentesis and 9 liters of fluid was removed. The patient had initial lab work done in the ER, which revealed a white count of 26,000, sodium 125, potassium 3.2, BUN and creatinine of 35/1.0, her AST was 35, ALT 75, alk phos 295, patient subsequently admitted for further evaluation and treatment. HOSPITAL COURSE: The patient improved during her hospital stay. The patient was started on IV Flagyl as well as IV Rocephin. Her white count started initially 26,000, which was repeated the following successive days, her white count progressively dropped to 18.9 on 01/30/2017 and decreased to 17,000 on 01/31/2017 and 14,000 on day of discharge on 02/02/2017. She was seen and evaluated by ID as well as GI. Please see dictated report. The patient's abdominal pain, discomfort slowly resolved. She had no nausea or vomiting. No fever or chills. She was subsequently discharged in stable condition, was to follow up with her regular physician in 3-5 days. The patient was given a prescription for Flagyl 500 mg 3 times a day for 7 days as well as Augmentin 500 mg 1 tablet 3 times a day for 7 days and she was told to continue her current medications. [facility]# [id number]
== END 2017-02-02 13:30 | disposition hospice, home (50) | DRG 872 ==
LOC: ER 11:21 → MSI 14:19
PROVIDERS: ADMIT Family Medicine; ATTEND Family Medicine
PROC: 0W9G3ZZ Drainage of Peritoneal Cavity, Percutaneous Approach (ICD-10-PCS; principal; 2017-01-29)
PROC: 06H033Z Insertion of Infusion Device into Inferior Vena Cava, Percutaneous Approach (ICD-10-PCS; 2017-01-29)
DX: A41.9 Sepsis, unspecified organism (principal); D69.6 Thrombocytopenia, unspecified; K70.31 Alcoholic cirrhosis of liver with ascites; E87.1 Hypo-osmolality and hyponatremia; E44.1 Mild protein-calorie malnutrition; N39.0 Urinary tract infection, site not specified; K72.90 Hepatic failure, unspecified without coma; R79.1 Abnormal coagulation profile; D64.9 Anemia, unspecified; N18.9 Chronic kidney disease, unspecified; E87.6 Hypokalemia; Z66 Do not resuscitate; K59.00 Constipation, unspecified; M19.90 Unspecified osteoarthritis, unspecified site; J44.9 Chronic obstructive pulmonary disease, unspecified; F10.10 Alcohol abuse, uncomplicated; Z68.22 Body mass index [BMI] 22.0-22.9, adult; Z79.899 Other long term (current) drug therapy; Z88.0 Allergy status to penicillin
CPT/HCPCS: 36415-UA; 76942-TC; 80048-TC; 80053-TC; 81001-TC; 82140-TC; 83036-90; 83605; 83735-TC; 84439-90; 84443-TC; 85007-TC; 85027-TC; 85610-TC; 87086-90; 87380-90; 90799; 93005; C9113; J0696; J1956; J2001; J3370; J3430; J3480; J7040; P9046; P9047; Z7610

== ENCOUNTER 2017-02-08 09:57 | Inpatient (IN) | payer OTHER ==
--- NOTE | 2017-02-08 10:09 | ED Physician Chart ---
ED Chief Complaint/HPI - Patient Information Date Seen:: 02/08/17 Time Seen:: 09:50 Chief Complaint:: Abdominal Pain History of Present Illness:: onset x one day of intermittent, diffuse, crampy abdominal pain and distention; pt denies trauma, H/As, S/T, neck pain, C/P, SOB, cough, A/N/V/D/C, fever, chills, or urinary s/s Allergies:: Allergies Allergy/AdvReac Type Severity Reaction Status Date / Time Penicillins [PCN] Allergy Verified 11/28/16 17:09 Historian:: Patient, EMS Review:: Nurse's Note Reviewed, EMS run form Reviewed ED Review of Systems - Review of Systems General/Constitutional: No fever, No chills, No weight loss, No weakness, No diaphoresis, No edema, No loss of appetite Skin: No skin lesions, No rash, No bruising Head: No headache, No light-headedness Eyes: No loss of vision, No pain, No diplopia ENT: No earache, No nasal drainage, No sore throat, No tinnitus Neck: No neck pain, No swelling, No thyromegaly, No stiffness, No mass noted Cardio Vascular: No chest pain, No palpitations, No PND, No orthopnea, No edema Pulmonary: No SOB, No cough, No sputum, No wheezing GI: No nausea, No vomiting, No diarrhea, Pain, No melena, No hematochezia, No constipation, No hematemesis G/U: No dysuria, No frequency, No hematuria 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: No vaginal discharge, No abnormal vaginal bleed, No contraction Musculoskeletal: No bone or joint pain, No back pain, No muscle pain Endocrine: No polyuria, No polydipsia Psychiatric: No prior psych history, No depression, No anxiety, No suicidal ideation, No homicidal ideation, No auditory hallucination, No visual hallucination Hematopoietic: No bruising, No lymphadenopathy Allergic/Immuno: No urticaria, No angioedema Neurological: No syncope, No focal symptoms, No weakness, No paresthesia, No headache, No seizure, No dizziness, No confusion, No vertigo ED Past Medical History - Past Medical History Obtainable: Yes Past Medical History: Other (Cirrhosis) Family History: Cancer Social History: Non Smoker, Alcohol, No Drug Use, Single Surgical History: None Psychiatricy History: None Medication: Reviewed Family Medical History - Family Member Mother History Unknown: Yes Ethnicity: Non- Living Status: Hx Family Cancer: No Hx Family Coronary Artery Disease: No Hx Family Congestive Heart Failure: No Hx Family Hypertension: No Hx Family Stroke: No Hx Family Diabetes: No Hx Family Seizures: No Hx Family Dementia: No Hx Family AIDS: No Hx Family HIV: No Hx Family COPD: No Hx Family Hepatitis: No Hx Family Psychiatric Problems: No Hx Family Tuberculosis: No ED Physical Exam - Physical Examination General/Constitutional: Awake, Well-developed, well-nourished, Alert, No distress, GCS 15, Non-toxic appearing, Ambulatory Head: Atraumatic Eyes: Lids, conjuctiva normal, PERRL, EOMI Skin: Nl inspection, No rash, No skin lesions, No ecchymosis, Well hydrated, No lymphadenopathy ENMT: External ears, nose nl, TM canals nl, Nasal exam nl, Lips, teeth, gums nl , Oropharynx nl, Tonsils nl Neck: Nontender, Full ROM w/o pain, No JVD, No nuchal rigidity, No bruit, No mass, No stridor Respiratory: Nl effort/Exclusion, Clear to Auscultation, No Wheeze/Rhonchi/Rales Cardio Vascular: RRR, No murmur, gallop, rubs, NL S1 S2, Carotid/Femoral/Distal pulses equal bilaterally GI: No tenderness/rebounding/guarding, No organomegaly, No hernia, Normal BS's, No mass/bruits, No McBurney tenderness Other GI comments:: + Distention; + Ascites : No CVA tenderness Extremities: No tenderness or effusion, Full ROM, normal strength in all extremities, No edema, Normal digits & nails Neuro/Psych: Alert/oriented, DTR's symmetric, Normal sensory exam, Normal motor strength, Judgement/insight normal, Mood normal, Normal gait, No focal deficits Misc: Normal back, No paraspinal tenderness ED Labs/Radiology/EKG Results - Lab Results Comments:: WBC: 17.0; Na+: 123; K+: 3.4; BUN: 40; Elevated LFTs - Radiology Results Comments:: + Ascites - EKG Interpretations EKG Time:: 10:25 Rate & Rhythm: 106; ST Comments:: non-specific st-t changes ED Septic Shock - . Is Septic Shock (SBP<90, OR Lactate>4 mmol\L) present?: No ED Reassessment (Disposition) - Reassessment Reassessment Condition:: Improved - Diagnosis Diagnosis:: Dx: Leukocytosis; Sepsis; Cirrhosis; Ascites; Abdominal Pain; Abdominal Distention; Hyponatremia; Hypokalemia; Dehydration - Aftercare/Follow up Instructions Aftercare/Follow-Up Instructions:: Counseled pt regarding lab results/diagnosis & need follow up, Counseled pt & family regarding lab results/diagnosis & need follow up - Patient Disposition Discharge/Transfer:: Acute Care w/in this hosp Accepting Physician:: Dr. Mccullough Time Called:: 1400 Time Responded:: 14:00 Admitted to:: Med/Surg Spoke to:: Dr. Mccullough Admitting Medical Physician:: Dr. mccullough Condition at Disposition:: Stable, Improved
[2017-02-08 10:36] LABS: % BASOPHILS 0.1 % (0.0-2.0); % EOSINOPHILS 0.9 % (0.0-5.0); % LYMPHOCYTES 10.1 % (20.0-50.0); % MONOCYTES 6.7 % (2.0-10.0); % NEUTROPHILS 82.2 % (40.0-80.0); HEMOGLOBIN 12.1 gm/dL (12-16); MEAN CELL VOLUME 101.9 fl (81-100); MEAN CORPUSCULAR HEMOGLOBIN 34.5 pg (27.0-31.0); MEAN CORPUSCULAR HGB CONC 33.8 pg (28.0-36.0); MEAN PLATELET VOLUME 7.9 fl; PLATELET COUNT 244 Th/cmm (150-400)
[2017-02-08 10:46] LABS: HEMATOCRIT 35.6 % (41.0-60)
[2017-02-08 10:55] LABS: INR 2.35 (0.5-1.4); PROTHROMBIN TIME (TEST) 25.6 SECONDS (9.5-11.5)
[2017-02-08 11:02] LABS: ALB/GLOB RATIO 1.5 (1.0-1.8); ANION GAP 11.7 (7.0-16.0); BILIRUBIN,TOTAL 2.3 mg/dL (0.3-1.0); BUN/CREATININE RATIO 33.3; CALCIUM SERUM 8.6 mg/dL (8.6-10.3); CARBON DIOXIDE 19.7 mEq/L (21.0-31.0); CREATININE - SERUM 1.2 mg/dL (0.6-1.2); POTASSIUM SERUM 3.4 mEq/L (3.5-5.1)
[2017-02-08 11:03] LABS: AMYLASE SERUM 21 U/L (29-103); LIPASE 7 U/L (11-82)
--- NOTE | 2017-02-08 11:57 | Diagnostic Imaging Report ---
Exam: Ultrasound examination abdomen. HISTORY: Abdominal pain distention Findings: Real-time ultrasound examination of the abdomen performed multiple planes. The study demonstrates ascitic fluid in the abdomen. The liver parenchyma is intact. The gallbladder is distended measuring 6 cm long diameters. The gallbladder wall thickening most likely due to ascitic fluid. The common bile duct is not seen. Pancreas not seen. The kidneys demonstrate no evidence of obstructive uropathy or nephrolithiasis. Left kidney is difficult to visualize. Spleen is not seen. IMPRESSION 1. Ascitic fluid in the abdomen 2. Gallbladder distended with gallbladder wall thickening up to 6 mm most likely due to ascitic fluid. 3. The study is limited due to large amount of bowel gas and surgical fluid. 4. Pancreas not seen. 5. Spleen are seen.
[2017-02-08] MEDS ORDERED: Levofloxacin 500mg/100mL 500 MG/100 ML BAG IV ONE ×2 (14:18→14:45)
[2017-02-08] MEDS ORDERED: Potassium Chloride 20 mEq ER Tab PO ONE ×2 (14:24→14:43)
[2017-02-08] MEDS ORDERED: Sodium Chloride 0.9% 1,000 ML IV ONE (14:25)
[2017-02-08] MEDS ORDERED: cefTRIAXone 1 GM in Sodium Chloride 0.9% 50 ML IV SCH (18:00)
[2017-02-08] MEDS: metroNIDAZOLE 500mg/NS 100mL 500 MG/100 ML BAG IV SCH (22:46)
[2017-02-09] MEDS: metroNIDAZOLE 500mg/NS 100mL 500 MG/100 ML BAG IV SCH ×2 (05:17→13:25)
[2017-02-09 05:59] LABS: % BASOPHILS 2.3 % (0.0-2.0); % EOSINOPHILS 0.7 % (0.0-5.0); % LYMPHOCYTES 12.4 % (20.0-50.0); % MONOCYTES 3.8 % (2.0-10.0); % NEUTROPHILS 80.8 % (40.0-80.0); HEMATOCRIT 36.9 % (41.0-60); HEMOGLOBIN 12.5 gm/dL (12-16); MEAN CELL VOLUME 101.7 fl (81-100); MEAN CORPUSCULAR HEMOGLOBIN 34.5 pg (27.0-31.0); MEAN CORPUSCULAR HGB CONC 33.9 pg (28.0-36.0); MEAN PLATELET VOLUME 8.1 fl; NEUTROPHILE ABSOLUTE 12.5 Th/cmm (1.8-8.0); PLATELET COUNT 246 Th/cmm (150-400); RED BLOOD COUNT 3.63 Mil/cmm (3.80-5.10); RED CELL DISTRIBUTION WIDTH 15.9 % (11.5-20.0)
[2017-02-09 06:04] LABS: WHITE BLOOD COUNT 15.5 Th/cmm (4.8-10.8)
[2017-02-09 06:16] LABS: ALB/GLOB RATIO 1.5 (1.0-1.8); ANION GAP 11.1 (7.0-16.0); BILIRUBIN,TOTAL 2.9 mg/dL (0.3-1.0); BUN/CREATININE RATIO 28.7; CALCIUM SERUM 8.8 mg/dL (8.6-10.3); CARBON DIOXIDE 22.3 mEq/L (21.0-31.0); CREATININE - SERUM 1.5 mg/dL (0.6-1.2); POTASSIUM SERUM 4.4 mEq/L (3.5-5.1)
--- NOTE | 2017-02-09 07:32 | History and Physical ---
History of Present Illness - HPI Chief Complaint: abdominal pain HPI: 61 year old female who presents to [facility] ER for abdominal pain with distention. Patient has a history of chronic alcoholic liver cirrhosis. Patient denies any chest pain or shortness of breath. fever chills or urinary symptoms. Patient was here a few weeks ago for the same symptoms and underwent US guided paracentesis. While in the ER patient was noted to have WBC' s 15.5 PT/INR 25.6/2.35 Na 123 K 3.4 BUN/Cr 40/1.2. Abd US revealed ascites. Patient was subsequently admitted for further evaluation and treatment. Vital Signs: Last Vital Signs Temp 98.2 F 02/09/17 04:00 Pulse 111 02/09/17 04:00 Resp 18 02/09/17 04:00 BP 95/59 02/09/17 04:00 Pulse Ox 96 02/09/17 04:00 Past Medical History Cardiovascular: Report: No Pertinent Hx Pulmonary: Report: No Pertinent Hx TECHNICAL IMPLEMENTATION LEAD: Report: No Pertinent Hx GI: Report: Other (chronic liver cirrhosis.) Psych: Report: No Pertinent Hx Musculoskeletal: Report: No Pertinent Hx Rheumatologic: Report: No pertinent Hx Infectious Disease: Report: No Pertinent Hx Renal/: Report: No Pertinent Hx Endocrine: Report: No Pertinent Hx Dermatology: Report: No Pertinent Hx - Past Surgical History Past Surgical History: No pertinent Hx Family Medical History - Family Member Mother History Unknown: Yes Ethnicity: Non- Living Status: Hx Family Cancer: No Hx Family Coronary Artery Disease: No Hx Family Congestive Heart Failure: No Hx Family Hypertension: No Hx Family Stroke: No Hx Family Diabetes: No Hx Family Seizures: No Hx Family Dementia: No Hx Family AIDS: No Hx Family HIV: No Hx Family COPD: No Hx Family Hepatitis: No Hx Family Psychiatric Problems: No Hx Family Tuberculosis: No Social History Smoke: No Alcohol: Heavy Drugs: None Lives: With Family - Medications Home Medications: Home Medication Medication Instructions Recorded Type Sodium Chloride Tab [NaCL Tab] 500 mg PO DAILY 01/29/17 History Folic Acid [Folate*] 1 mg PO DAILY tab 02/02/17 Rx Magnesium Oxide [Mag-Oxide] 400 mg PO BID tab 02/02/17 Rx metroNIDAZOLE [Flagyl] 500 mg PO TID 7 Days #21 tab 02/02/17 Rx - Allergies Allergies/Adverse Reactions: Allergies Allergy/AdvReac Type Severity Reaction Status Date / Time Penicillins [PCN] Allergy Verified 11/28/16 17:09 Review of Systems - Review of Systems Constitutional: Report: Weakness, Malaise Eyes: Report: Other (scleral icterus) ENT: Report: No Significant Respiratory: Report: No Significant Cardiovascular: Report: No Significant Gastrointestinal: Report: Abdominal Pain, Other (abdominal distension) Genitourinary: Report: No Significant Musculoskeletal: Report: No Significant Skin: Report: Ganesh Neurological: Report: No Significant Physical Exam - Physical Exam HEENT: Report: Ears Nose Throat within normal limits, Pharnyx within normal limits Neck: Report: Within normal limits Cardiovascular Systems: Report: +s1/s2 noted, Regular, Rate and Rhythm Respiratory: Report: Breath Sounds are within normal limits, Clear to Auscultation of lung gill Abdomen: Report: Hepatomegaly Noted, Other (abdominal distension) Back: Report: Inspection of back is within normal limits. Extremities: Report: Non-tender to palpation. Skin: Report: Color of skin is within normal limits Neuro/Psych: Report: Mood affect is within normal limits, A+Ox3 - Lab Results All Lab Results last 24 hours: Laboratory Results - last 24 hr 02/08/17 02/09/17 02/09/17 18:58 05:20 05:20 WBC 15.5 H RBC 3.63 L Hgb 12.5 Hct 36.9 L MCV 101.7 H MCH 34.5 H MCHC Differential 33.9 RDW 15.9 Plt Count 246 MPV 8.1 Neutrophils % 80.8 H Lymphocytes % 12.4 L Monocytes % 3.8 Eosinophils % 0.7 Basophils % 2.3 H Sodium 126 L Potassium 4.4 Chloride 97 L Carbon Dioxide 22.3 Anion Gap 11.1 BUN 43 H Creatinine 1.5 H Est GFR ( Amer) 45.4 Est GFR (Non-Af Amer) 37.5 BUN/Creatinine Ratio 28.7 Glucose 93 D POC Glucose 94 Calcium 8.8 Total Bilirubin 2.9 H AST 20 ALT 20 Alkaline Phosphatase 269 H Total Protein 4.9 L Albumin 2.9 L Globulin 2.0 Albumin/Globulin Ratio 1.5 - Assessment Assessment: Current Active Problems Problem Status Onset SEVERE ABDOMINAL DISTENTION Acute SEVERE ABDOMINAL DISTENTION Acute Chronic Alcoholic Liver Cirrhosis ascites w/ abdominal distension Sepsis hypokalemia hyponatremia CKD - Plan Plan: GI consult ID consult repeat CBC,CMP tomorrow wound consult IV Vancomycin IV Flagyl will add PO KCL
[2017-02-09] MEDS ORDERED: Lactulose 10 Gm/15 mL 30mL UDC PO SCH (09:00)
[2017-02-09] MEDS ORDERED: Potassium Chloride 20 mEq ER Tab PO SCH (09:00)
--- NOTE | 2017-02-09 14:34 | Diagnostic Imaging Report ---
Paracentesis (ultrasound-guided) HISTORY: Ascites Using ultrasound guidance and sterile technique, 4 L of yellow tinted ascitic fluid was aspirated from the right lower abdomen. The patient tolerated the procedure with no immediate apparent clinical complications. IMPRESSION: Paracentesis as noted above
--- NOTE | 2017-02-09 18:24 | Consultation ---
Consult Note - Consult Note Service Date: 02/09/17 Referring Physician: Donnell Ignacio Consult Note: PHYSICIAN Consultation Note: Date of Admission: 02/08/17 Purpose of Consultation: Chief Complaint: Patient KWESI COX was admitted to location Medical[facility] Unit I with ASCITES CIRRHOSIS. History of Present Illness: 61-year-old female history of alcohol abuse, asthma with acute, constant, severe , generalized weakness admitted to the hospital for drainage of tense ascites. wbc count 15,000. antibiotics given and ID consult was called. 4L of fluid was taken out with abd paracentesis Past Medical History: End-stage liver disease, asthma, alcohol abuse. Allergies Allergy/AdvReac Type Severity Reaction Status Date / Time Penicillins [PCN] Allergy Verified 11/28/16 17:09 Vital Signs Temp 96.7 F 02/09/17 16:00 Pulse 104 02/09/17 16:00 Resp 18 02/09/17 16:00 BP 109/72 02/09/17 16:00 Pulse Ox 100 02/09/17 16:00 Intake & Output 02/08/17 02/09/17 02/09/17 18:59 06:59 18:59 Intake Total 200 200 450 Balance 200 200 450 Weight (lbs) 66.905 kg 66.905 kg Intake: Intake, IV Amount 200 metroNIDAZOLE 500mg/NS 200 100mL 500 mg In 100 ml @ 100 mls/hr IV Q8HR [facility] Rx #:[id number] Oral 200 450 Other: # Voids 4 # Bowel Movements 1 2 Stool Characteristics Soft Soft Laboratory Results - last 24 hr 02/08/17 02/09/17 02/09/17 18:58 05:20 05:20 WBC 15.5 H RBC 3.63 L Hgb 12.5 Hct 36.9 L MCV 101.7 H MCH 34.5 H MCHC Differential 33.9 RDW 15.9 Plt Count 246 MPV 8.1 Neutrophils % 80.8 H Lymphocytes % 12.4 L Monocytes % 3.8 Eosinophils % 0.7 Basophils % 2.3 H Sodium 126 L Potassium 4.4 Chloride 97 L Carbon Dioxide 22.3 Anion Gap 11.1 BUN 43 H Creatinine 1.5 H Est GFR ( Amer) 45.4 Est GFR (Non-Af Amer) 37.5 BUN/Creatinine Ratio 28.7 Glucose 93 D POC Glucose 94 Calcium 8.8 Total Bilirubin 2.9 H AST 20 ALT 20 Alkaline Phosphatase 269 H Ammonia Total Protein 4.9 L Albumin 2.9 L Globulin 2.0 Albumin/Globulin Ratio 1.5 Random Vancomycin 02/09/17 02/09/17 05:20 05:20 WBC RBC Hgb Hct MCV MCH MCHC Differential RDW Plt Count MPV Neutrophils % Lymphocytes % Monocytes % Eosinophils % Basophils % Sodium Potassium Chloride Carbon Dioxide Anion Gap BUN Creatinine Est GFR ( Amer) Est GFR (Non-Af Amer) BUN/Creatinine Ratio Glucose POC Glucose Calcium Total Bilirubin AST ALT Alkaline Phosphatase Ammonia 67 H Total Protein Albumin Globulin Albumin/Globulin Ratio Random Vancomycin 18.7 Home Medication Medication Instructions Recorded Type Sodium Chloride Tab [NaCL Tab] 500 mg PO DAILY 01/29/17 History Folic Acid [Folate*] 1 mg PO DAILY tab 02/02/17 Rx Magnesium Oxide [Mag-Oxide] 400 mg PO BID tab 02/02/17 Rx metroNIDAZOLE [Flagyl] 500 mg PO TID 7 Days #21 tab 02/02/17 Rx Current Medications Generic Name Dose Route Start Last Admin Trade Name Madhavi PRN Reason Stop Dose Admin Folic Acid 1 mg 02/09/17 09:00 02/09/17 09:00 Folate PO 04/10/17 08:59 1 mg DAILY SHREYAS Administration Furosemide 20 mg 02/09/17 09:00 02/09/17 08:59 Lasix PO 04/10/17 08:59 20 mg DAILY SHREYAS Administration Metronidazole 500 mg in 100 mls @ 100 mls/hr 02/08/17 21:00 02/09/17 13:25 Flagyl IV 04/09/17 20:59 100 mls/hr Q8HR SHREYAS Administration Vancomycin HCl 1 gm/ Sodium 250 mls @ 165 mls/hr 02/09/17 11:00 02/09/17 11: 16 Chloride IV 04/10/17 10:59 165 mls/hr Q12HR SHREYAS Administration Lactulose 15 gm 02/09/17 09:00 02/09/17 08:59 Cephulac PO 04/10/17 08:59 Not Given DAILY SHREYAS Magnesium Oxide 400 mg 02/09/17 09:00 02/09/17 16:46 Mag-Oxide PO 04/10/17 08:59 400 mg BID SHREYAS Administration Miscellaneous 1 ea 02/08/17 22:22 Vancomycin Iv Per Pharmacy 04/09/17 22:21 PRN PRN PROTOCOL Potassium Chloride 20 meq 02/09/17 09:00 02/09/17 09:00 Klor-Con PO 04/10/17 08:59 20 meq DAILY SHREYAS Administration Sodium Chloride 0.5 gm 02/09/17 09:00 02/09/17 09:00 Nacl Tab PO 04/10/17 08:59 0.5 gm DAILY SHREYAS Administration Spironolactone 25 mg 02/09/17 09:00 02/09/17 09:00 Aldactone PO 04/10/17 08:59 25 mg DAILY SHREYAS Administration Review of Systems: A 12 point ROS was reviewed with the pertinent positive and negatives noted in the HPI. Social History Smoking Status Former smoker. Alcohol status she had a history of drinking alcohol in the past, she stopped drinking alcohol 4 years ago. However she has started drinking alcohol again. Family Medical History Unknown Physical Exam: General: cachectic, not indistress, non toxic. HEENT: Head atraumatic, bitemporal wasting. Oral cavity moist, pink tongue, eyes [pallor +, icterus +, PERRLA, EOMI. Neck: Supple, no JVD, no use of acc neck muscles. Cardio: S1 abd S2 WNL, no acute distress. Respiratory: Vesicular breath sound, no crackles no wheezing. Decreased at the bases. Abdominal: Soft, nontender, distended. Ascites present. No hepatosplenomegaly presented. Genital/Urinary: Deferred. Extremities: No cyanosis, no clubbing. Edema present 4+. Pulses are palpable. Neurological: Alert, awake, oriented 3. Assessment: 1. leukocytosis, reactive, peritonitis, 2. End-stage liver disease. 3. Alcohol abuse. 4. Anemia, likely GI bleed. 5. Jaundice. 6. Alcohol abuse. Plan: Change antibiotic to levaquin. dc central line in right femoral. patient is going home on home hospice. May consider PD cath or pleurex cath as palliative measure and prevent repeat paracentesis and er visits. DW patient and her . Thank you Dr Bush for involving me in taking care of this patient. Darryl, Stevie Druan M.D. [id number]
--- NOTE | 2017-02-10 02:24 | Consultation ---
DATE OF CONSULTATION: 02/09/2017 INPATIENT GASTROINTESTINAL CONSULTATION REFERRING PHYSICIAN: Dr. Ignacio. REASON FOR CONSULTATION: Cirrhosis and ascites. HISTORY: This is a 61-year-old female who was recently told she had cirrhosis approximately 2 months ago. It was due to alcohol consumption that was heavy and therefore she has stopped the consumption of alcohol and has been sober for the past 2 months. She has had a number of abdominal paracentesis due to ascites formation and is now in the hospital because of abdominal pain and distention. For that reason, she is having a paracentesis today. She denies any confusion. Denies upper GI bleeding. Denies nausea, vomiting. Denies lower GI bleeding. PAST MEDICAL HISTORY: Cirrhosis. PAST SURGICAL HISTORY: None to add recently. FAMILY HISTORY: Noncontributory. SOCIAL HISTORY: Denies tobacco or IV drug usage. Has been sober from alcohol for 2 months. ALLERGIES: PENICILLIN. CURRENT MEDICATIONS: Folic acid, Lasix, lactulose, magnesium oxide, Flagyl, vancomycin, potassium, Aldactone, vancomycin. REVIEW OF SYSTEMS: Ten point review of system was performed. The pertinent positive was the abdominal distention, abdominal discomfort, cirrhosis. All the systems were otherwise negative. PHYSICAL EXAMINATION: VITAL SIGNS: Temperature 97.8, breathing 18, pulse of 105, blood pressure 95/55, satting 96%. GENERAL: In no apparent distress. EYES: Icteric bilaterally. NECK: Soft, supple. CHEST: Clear. No effort. CARDIOVASCULAR: Regular rate and rhythm. ABDOMEN: Soft, nontender, distended. SKIN: Warm, dry. PSYCHOLOGIC: Alert and oriented x 3. LABORATORY DATA: Show a T-bili 2.9, AST 20, ALT 20, alkaline phosphatase 269, lipase is 7, INR is 2.35. White count 15.5, hemoglobin 12.5, platelets 246, abdominal ultrasound shows ascites. Gallbladder is distended secondary to ascites fluid. IMPRESSION: This is a 61-year-old female with alcoholic cirrhosis complicated by ascites, is having a paracentesis today, the fluid should be sent for fluid analysis. The patient was also advised to establish care with a admissions gate attendant through her primary care provider so that she can receive ongoing care and management of her cirrhosis. She was also advised to keep sober and consider joining to keep that sobriety. PLAN: 1. Paracentesis per Radiology. 2. Continue diuretics. 3. Continue lactulose. 4. Establish care with Hepatology. 5. Check fluid analysis. Thank you for allowing me to participate. Please call me if any questions. JOB# [id number]
--- NOTE | 2017-02-15 23:18 | Discharge Summary ---
DATE OF DISCHARGE: 02/10/2017 PRELIMINARY DIAGNOSES: 1. Abdominal pain. 2. Chronic alcoholic liver cirrhosis. 3. Ascites with abdominal distention. 4. Sepsis. 5. Hypokalemia. 6. Hyponatremia. 7. Chronic kidney disease. DISCHARGE DIAGNOSES: 1. Abdominal pain. 2. Chronic alcoholic liver cirrhosis. 3. Ascites with abdominal distention. 4. Sepsis. 5. Hypokalemia. 6. Hyponatremia. 7. Chronic kidney disease. BRIEF HISTORY OF PRESENT ILLNESS: This is a 61-year-old female who presents to [facility] ER for abdominal pain with distention. The patient has a history of chronic alcoholic liver cirrhosis, was seen just a few weeks prior to admission and had recently underwent ultrasound-guided paracentesis. The patient denies any chest pain or shortness of breath. Denies any fever, chills, or urinary symptoms. While in the ER, the patient was noted to have a WBC of 15.5. PT/INR was noted to be 25.6/2.35. Sodium was low at 123, potassium was low at 3.4, BUN was 40, and creatinine 1.2. An abdominal ultrasound revealed ascites. The patient was subsequently admitted for further evaluation and treatment. HOSPITAL COURSE: The patient improved during her hospital stay. The patient underwent an ultrasound-guided paracentesis during which 4 liters of yellowish-tinted ascitic fluid was aspirated from the right lower abdomen. The patient noted decreased pain and discomfort. She was subsequently discharged in stable condition. The patient was to be discharged home under hospice. The patient was to follow up with her regular physician. [facility]# [id number]
== END 2017-02-09 22:27 | disposition hospice, home (50) | DRG 871 ==
LOC: ER 09:57 → MSI 15:45
PROVIDERS: ADMIT Family Medicine; ATTEND Family Medicine
PROC: 0W9G3ZZ Drainage of Peritoneal Cavity, Percutaneous Approach (ICD-10-PCS; principal; 2017-02-09)
DX: A41.9 Sepsis, unspecified organism (principal); K65.8 Other peritonitis; R64 Cachexia; K70.31 Alcoholic cirrhosis of liver with ascites; K72.90 Hepatic failure, unspecified without coma; E87.1 Hypo-osmolality and hyponatremia; K92.2 Gastrointestinal hemorrhage, unspecified; E86.0 Dehydration; E87.6 Hypokalemia; R14.0 Abdominal distension (gaseous); N18.9 Chronic kidney disease, unspecified; J45.909 Unspecified asthma, uncomplicated; F10.10 Alcohol abuse, uncomplicated; D64.9 Anemia, unspecified; Z88.0 Allergy status to penicillin; Z79.899 Other long term (current) drug therapy; Z87.891 Personal history of nicotine dependence; Z68.26 Body mass index [BMI] 26.0-26.9, adult
CPT/HCPCS: 36415-UA; 76700-TC; 76942-TC; 80053-TC; 80061-TC; 80202-TC; 82140-TC; 82150-TC; 82550-TC; 82948-90; 83605; 83690-TC; 83880-TC; 84484-TC; 85025-TC; 85610-TC; 89051-TC; 90799; 93005; 94760; J0696; J1956; J3370; J7030

== ENCOUNTER 2017-02-19 11:48 | Emergency (ER) | payer OTHER ==
--- NOTE | 2017-02-19 12:07 | ED Physician Chart ---
ED Chief Complaint/HPI - Patient Information Date Seen:: 02/19/17 Time Seen:: 12:07 Chief Complaint:: Ascites History of Present Illness:: 61 yo female has severe ascites due to end stage alcoholic liver disease. The patient has been on hospice care. The ascites has reaccumulated since last paracentesis 2 weeks ago. Abdominal bloating. Denies SOB. Allergies:: Allergies Allergy/AdvReac Type Severity Reaction Status Date / Time Penicillins [PCN] Allergy Verified 11/28/16 17:09 Vitals:: Vital Signs - 8 hr 02/19/17 11:55 Temp 97.3 F HR 82 RR 16 BP 104/68 O2 Sat % 95 ED Review of Systems - Review of Systems General/Constitutional: No fever, No chills Skin: Bruising Head: No headache Eyes: No loss of vision ENT: No earache Neck: No neck pain Cardio Vascular: No chest pain Pulmonary: No SOB GI: No nausea, No vomiting Musculoskeletal: No bone or joint pain ED Past Medical History - Past Medical History Past Medical History: Other (liver cirrhosis) Social History: Smoker, Alcohol, No Drug Use Surgical History: None Family Medical History - Family Member Mother History Unknown: Yes Ethnicity: Non- Living Status: Hx Family Cancer: No Hx Family Coronary Artery Disease: No Hx Family Congestive Heart Failure: No Hx Family Hypertension: No Hx Family Stroke: No Hx Family Diabetes: No Hx Family Seizures: No Hx Family Dementia: No Hx Family AIDS: No Hx Family HIV: No Hx Family COPD: No Hx Family Hepatitis: No Hx Family Psychiatric Problems: No Hx Family Tuberculosis: No ED Physical Exam - Physical Examination General/Constitutional: Awake, Alert Head: Atraumatic Eyes: PERRL, EOMI Other Eyes comments:: jaundice Other Skin comments:: jaundice ENMT: Nasal exam nl Neck: No nuchal rigidity Respiratory: Clear to Auscultation, No Wheeze/Rhonchi/Rales Cardio Vascular: RRR, No murmur, gallop, rubs, NL S1 S2 Other GI comments:: Significant abdominal distention Extremities: normal strength in all extremities Neuro/Psych: No focal deficits ED Assessment - Assessment General Assessment: End stage liver disease Severe ascites Critical Care Time: 45 min Excludes all billable procedures: Yes This condition life threatening/high prob of deterioration: No - Procedures Procedures:: Paracentesis Informed Consent: Procedure/risk/benefits explained by MD: Yes (6L fluid was removed wo complication. Patient tolerated the procedure well) ED Septic Shock - . Is Septic Shock (SBP<90, OR Lactate>4 mmol\L) present?: No - <6hrs of presentation: Vital Signs: Vital Signs - 8 hr 02/19/17 11:55 Temp 97.3 F HR 82 RR 16 BP 104/68 O2 Sat % 95 ED Discharge Plan - Patient Disposition Admit/Discharge/Transfer: HOSPICE IN THE HOME Condition at Disposition: Improved Instructions: Ascites
[2017-02-19 12:32] LABS: BASOPHILE ABSOLUTE 0.9 Th/cumm (0-0.2); EOSINOPHILE ABSOLUTE 0.1 Th/cmm (0.1-0.4); HEMATOCRIT 39.7 % (41.0-60); HEMOGLOBIN 13.7 gm/dL (12-16); LYMPHOCYTE ABSOLUTE 2.3 Th/cmm (1.5-3.0); MANUAL DIFF REQUIRED? YES; MEAN CELL VOLUME 100.4 fl (81-100); MEAN CORPUSCULAR HEMOGLOBIN 34.6 pg (27.0-31.0); MEAN CORPUSCULAR HGB CONC 34.5 pg (28.0-36.0); MEAN PLATELET VOLUME 7.6 fl; MONOCYTE ABSOLUTE 1.1 Th/cmm (0.3-1.0); NEUTROPHILE ABSOLUTE 13.3 Th/cmm (1.8-8.0); RED BLOOD COUNT 3.95 Mil/cmm (3.80-5.10); RED CELL DISTRIBUTION WIDTH 15.7 % (11.5-20.0)
[2017-02-19 12:34] LABS: WHITE BLOOD COUNT 17.7 Th/cmm (4.8-10.8)
[2017-02-19 12:35] LABS: PLATELET COUNT 461 Th/cmm (150-400)
[2017-02-19 12:45] LABS: INR 1.41 (0.5-1.4)
--- NOTE | 2017-02-21 09:09 | Diagnostic Imaging Report ---
Exam: Paracentesis. HISTORY: Ascites. Findings: After obtaining informed consent the patient was prepped and draped distal fashion. Utilizing ultrasonographic guidance 6 L of fluid was aspirated from left lower quadrant. Patient tolerated procedure well without complications. IMPRESSION: Successful left lower quadrant paracentesis 6 L of fluid obtained.
== END 2017-02-19 16:14 | disposition hospice, home (50) ==
LOC: ER 11:48
DX: R18.8 Other ascites (principal); K72.90 Hepatic failure, unspecified without coma; F17.200 Nicotine dependence, unspecified, uncomplicated; Z88.0 Allergy status to penicillin
CPT/HCPCS: 36415-UA; 76942-TC; 83605; 85007-TC; 85027-TC; 85610-TC; Z7502

== ENCOUNTER 2017-03-19 10:25 | Emergency (ER) | payer OTHER ==
--- NOTE | 2017-03-19 12:46 | ED Physician Chart ---
ED Chief Complaint/HPI - Patient Information Date Seen:: 03/19/17 Time Seen:: 12:10 Chief Complaint:: Ascites History of Present Illness:: 61 yo female has end stage liver disease on hospice care. She has ascites which requires periodic paracentesis. Her last paracentesis was done 2 weeks ago. The ascites re-accumulated and another paracentesis is needed. Allergies:: Allergies Allergy/AdvReac Type Severity Reaction Status Date / Time Penicillins [PCN] Allergy Verified 11/28/16 17:09 Vitals:: Vital Signs - 8 hr 03/19/17 10:54 Temp 97.6 F HR 112 RR 16 BP 107/74 O2 Sat % 98 ED Review of Systems - Review of Systems General/Constitutional: No fever Skin: Skin lesions Eyes: No pain ENT: No nasal drainage Neck: No neck pain Cardio Vascular: No chest pain Pulmonary: SOB GI: No nausea, No vomiting Musculoskeletal: No bone or joint pain ED Past Medical History - Past Medical History Past Medical History: Other (end stage liver disease) Social History: Non Smoker, Alcohol (former), No Drug Use Surgical History: None Family Medical History - Family Member Mother History Unknown: Yes Ethnicity: Non- Living Status: Hx Family Cancer: No Hx Family Coronary Artery Disease: No Hx Family Congestive Heart Failure: No Hx Family Hypertension: No Hx Family Stroke: No Hx Family Diabetes: No Hx Family Seizures: No Hx Family Dementia: No Hx Family AIDS: No Hx Family HIV: No Hx Family COPD: No Hx Family Hepatitis: No Hx Family Psychiatric Problems: No Hx Family Tuberculosis: No ED Physical Exam - Physical Examination General/Constitutional: Awake, Alert Eyes: PERRL Other Skin comments:: jaundice, spider angiomas Neck: No nuchal rigidity Respiratory: Clear to Auscultation Cardio Vascular: RRR, No murmur, gallop, rubs, NL S1 S2 Other GI comments:: significantly distended Extremities: normal strength in all extremities Neuro/Psych: No focal deficits ED Assessment - Assessment General Assessment: End stage liver disease Ascites - Procedures Procedures:: Ultrasound guided paracentesis done at 12:46PM: Betadine cleaned, drapped, 1% lidocaine was used to achieve local anesthesia, 18 gauge needle was inserted in area with abundant fluid under ultrasound guidance. 6L fluid was drained. Patient tolerated the procedure without any complication. ED Septic Shock - . Is Septic Shock (SBP<90, OR Lactate>4 mmol\L) present?: No - <6hrs of presentation: Vital Signs: Vital Signs - 8 hr 03/19/17 10:54 Temp 97.6 F HR 112 RR 16 BP 107/74 O2 Sat % 98 ED Reassessment (Disposition) - Reassessment Reassessment Condition:: Improved - Patient Disposition Discharge/Transfer:: Home ED Discharge Plan - Patient Disposition Admit/Discharge/Transfer: PT DISCHARGED HOME Condition at Disposition: Stable Instructions: Ascites, Paracentesis Additional Instructions: Pt. to DC home with family. Follow-up with PMD. Care to be continued by [facility].
--- NOTE | 2017-03-19 13:42 | Diagnostic Imaging Report ---
Paracentesis (ultrasound-guided) HISTORY: Ascites The exam was performed by Dr. Schmid. 5 L of yellow tinted ascitic fluid was aspirated from the left lower quadrant of the abdomen. The patient tolerated the procedure with no immediate apparent clinical complications.
== END 2017-03-19 16:00 | disposition home or self-care (01) ==
LOC: ER 10:25
DX: R18.8 Other ascites (principal); Z88.0 Allergy status to penicillin
CPT/HCPCS: 76942-TC

== ENCOUNTER 2017-04-02 11:36 | Emergency (ER) | payer OTHER ==
--- NOTE | 2017-04-02 11:52 | ED Physician Chart ---
ED Chief Complaint/HPI - Patient Information Date Seen:: 04/02/17 Time Seen:: 11:49 Chief Complaint:: Ascites History of Present Illness:: 61 yo female who was a hospice patient due to end stage liver disease. She had developed ascites during past 3 months. She had been receiving paracentesis every 2 weeks to relieve the rapid accumulating ascites. She returned today for a repeat paracentesis. Allergies:: Allergies Allergy/AdvReac Type Severity Reaction Status Date / Time Penicillins [PCN] Allergy Verified 11/28/16 17:09 Vitals:: Vital Signs - 8 hr 04/02/17 11:41 Temp 98.4 F HR 84 RR 18 BP 115/70 O2 Sat % 98 ED Review of Systems - Review of Systems General/Constitutional: No fever Skin: Skin lesions ENT: No earache Neck: No neck pain Cardio Vascular: No chest pain Pulmonary: SOB GI: No vomiting Musculoskeletal: No bone or joint pain ED Past Medical History - Past Medical History Past Medical History: Other (End stage liver disease) Social History: Non Smoker, No Alcohol (former drinker) Surgical History: None Family Medical History - Family Member Mother History Unknown: Yes Ethnicity: Non- Living Status: Hx Family Cancer: No Hx Family Coronary Artery Disease: No Hx Family Congestive Heart Failure: No Hx Family Hypertension: No Hx Family Stroke: No Hx Family Diabetes: No Hx Family Seizures: No Hx Family Dementia: No Hx Family AIDS: No Hx Family HIV: No Hx Family COPD: No Hx Family Hepatitis: No Hx Family Psychiatric Problems: No Hx Family Tuberculosis: No ED Physical Exam - Physical Examination General/Constitutional: Awake Eyes: PERRL Other Skin comments:: jaundice Neck: No nuchal rigidity Respiratory: No Wheeze/Rhonchi/Rales Cardio Vascular: RRR, No murmur, gallop, rubs, NL S1 S2 Other GI comments:: distended Extremities: normal strength in all extremities ED Assessment - Assessment General Assessment: Ascites End stage liver disease - Procedures Procedures:: ultrasound guided paracentesis: Betadine cleaned, drapped, 1% lidocaine was used to achieve local anesthesia, 18 gauge needle was inserted in area with abundant fluid under ultrasound guidance. 6.5 L fluid was drained. Patient tolerated the procedure without any complication. Informed Consent: Procedure/risk/benefits explained by MD: Yes ED Septic Shock - . Is Septic Shock (SBP<90, OR Lactate>4 mmol\L) present?: No - <6hrs of presentation: Vital Signs: Vital Signs - 8 hr 04/02/17 11:41 Temp 98.4 F HR 84 RR 18 BP 115/70 O2 Sat % 98 ED Reassessment (Disposition) - Reassessment Reassessment Condition:: Improved - Patient Disposition Discharge/Transfer:: Home (hospice care) ED Discharge Plan - Patient Disposition Instructions: Ascites, Paracentesis
--- NOTE | 2017-04-02 14:27 | Diagnostic Imaging Report ---
Paracentesis (ultrasound-guided) HISTORY: Ascites The exam was performed by Dr. Schmid Using ultrasound guidance, 6.5 L of ascitic fluid was aspirated from the left lower quadrant of the abdomen. The patient reportedly tolerated the procedure with no immediate apparent clinical complications. IMPRESSION: Paracentesis as noted above
== END 2017-04-02 17:40 | disposition home or self-care (01) ==
LOC: ER 11:36
DX: R18.8 Other ascites (principal); K72.90 Hepatic failure, unspecified without coma
CPT/HCPCS: 76942-TC; J2001; Z7610

== ENCOUNTER 2017-04-16 14:27 | Emergency (ER) | payer OTHER ==
--- NOTE | 2017-04-16 14:51 | ED Physician Chart ---
ED Chief Complaint/HPI - Patient Information Date Seen:: 04/16/17 Time Seen:: 14:51 Chief Complaint:: Ascites History of Present Illness:: 61 yo female had reaccumulation of ascites after last paracentesis 2 weeks ago. She was brought by BLS from home to ER for paracentesis. Allergies:: Allergies Allergy/AdvReac Type Severity Reaction Status Date / Time Penicillins [PCN] Allergy Verified 11/28/16 17:09 ED Review of Systems - Review of Systems General/Constitutional: No fever, No chills Skin: Skin lesions Head: No headache Eyes: No pain ENT: No earache Neck: No neck pain Cardio Vascular: No chest pain Pulmonary: No SOB GI: No nausea, No vomiting Musculoskeletal: No bone or joint pain Family Medical History - Family Member Mother History Unknown: Yes Ethnicity: Non- Living Status: Hx Family Cancer: No Hx Family Coronary Artery Disease: No Hx Family Congestive Heart Failure: No Hx Family Hypertension: No Hx Family Stroke: No Hx Family Diabetes: No Hx Family Seizures: No Hx Family Dementia: No Hx Family AIDS: No Hx Family HIV: No Hx Family COPD: No Hx Family Hepatitis: No Hx Family Psychiatric Problems: No Hx Family Tuberculosis: No ED Physical Exam - Physical Examination General/Constitutional: Awake, Alert Head: Atraumatic Eyes: PERRL Other Skin comments:: jaundice, spider angiomas Neck: No nuchal rigidity Respiratory: Clear to Auscultation Cardio Vascular: RRR, No murmur, gallop, rubs, NL S1 S2 Other GI comments:: significantly distended Extremities: normal strength in all extremities Neuro/Psych: No focal deficits ED Assessment - Assessment General Assessment: Ascites End stage liver disease - Procedures Procedures:: Ultrasound-guided paracentesis: betadine prepared and draped at [facility], ultrasound identified fluid pocket, penetration was gained with yellow fluid coming out. Total of 8.5 L fluid drained. The patient tolerated the procedure without complication. Informed Consent: Procedure/risk/benefits explained by MD: Yes ED Septic Shock - . Is Septic Shock (SBP<90, OR Lactate>4 mmol\L) present?: No ED Reassessment (Disposition) - Reassessment Reassessment Condition:: Improved - Patient Disposition Discharge/Transfer:: Home ED Discharge Plan - Patient Disposition Admit/Discharge/Transfer: PT DISCHARGED HOME Condition at Disposition: Improved Instructions: Paracentesis
--- NOTE | 2017-04-17 09:08 | Diagnostic Imaging Report ---
Ultrasound-guided paracentesis HISTORY: Ascites COMPARISON: Previous paracentesis procedure on 04/02/2017 FINDINGS: Ultrasound-guided paracentesis was performed by Dr. Schmid . Using ultrasound guidance 8.5 L of yellow fluid was drained from the left lower quadrant. The patient called the procedure with no immediate complications. Please refer to the primary doctor's report for complete details. IMPRESSION: Ultrasound-guided paracentesis as above.
== END 2017-04-16 16:50 | disposition home or self-care (01) ==
LOC: ER 14:27
DX: K72.90 Hepatic failure, unspecified without coma (principal); Z88.0 Allergy status to penicillin
CPT/HCPCS: 76942-TC; Z7610

== ENCOUNTER 2017-06-29 18:55 | Inpatient (IN) | payer OTHER ==
--- NOTE | 2017-06-29 19:43 | ED Physician Chart ---
ED Chief Complaint/HPI - Patient Information Date Seen:: 06/29/17 Time Seen:: 19:42 Chief Complaint:: Abdominal wound infection History of Present Illness:: 62 yo female had end stage liver disease on hospice care. She received paracentesis every two weeks until an indwelling peritoneal catheter was placed 2 months ago. The ascites drainage through the catheter became once a week by nurse at a convalescent facility. The skin around the insertion site of the catheter became red with pus and odor for 4 days. In addition, patient noticed skin lesions in bilateral lower extremities for about 2 weeks. These lesions were sporadic, small, non-painful pus-filling vesicles. Allergies:: Allergies Allergy/AdvReac Type Severity Reaction Status Date / Time Penicillins [PCN] Allergy Verified 11/28/16 17:09 Vitals:: Vital Signs - 8 hr 06/29/17 19:32 Temp 100 F HR 126 RR 16 BP 104/67 O2 Sat % 95 ED Review of Systems - Review of Systems General/Constitutional: No fever Skin: Skin lesions Head: No headache Eyes: No pain ENT: No nasal drainage Neck: No neck pain Cardio Vascular: No chest pain Pulmonary: No SOB GI: No nausea, No vomiting Musculoskeletal: No bone or joint pain Psychiatric: No prior psych history Neurological: No focal symptoms ED Past Medical History - Past Medical History Past Medical History: Other (End stage liver disease) Social History: Non Smoker, Alcohol (former alcohol drinker), No Drug Use Surgical History: None Family Medical History - Family Member Mother History Unknown: Yes Ethnicity: Non- Living Status: Hx Family Cancer: No Hx Family Coronary Artery Disease: No Hx Family Congestive Heart Failure: No Hx Family Hypertension: No Hx Family Stroke: No Hx Family Diabetes: No Hx Family Seizures: No Hx Family Dementia: No Hx Family AIDS: No Hx Family HIV: No Hx Family COPD: No Hx Family Hepatitis: No Hx Family Psychiatric Problems: No Hx Family Tuberculosis: No Father History Unknown: Yes Living Status: Hx Family Cancer: No Hx Family Coronary Artery Disease: No Hx Family Congestive Heart Failure: No Hx Family Hypertension: No Hx Family Stroke: No Hx Family Diabetes: Yes Hx Family Seizures: No Hx Family Dementia: No Hx Family AIDS: No Hx Family HIV: No Hx Family COPD: No Hx Family Hepatitis: No Hx Family Psychiatric Problems: No Hx Family Tuberculosis: No ED Physical Exam - Physical Examination General/Constitutional: Awake, Alert Head: Atraumatic Eyes: PERRL Other Skin comments:: skin lesions in bilateral lower extremities, sporadic, small (0.5-1cm), non- tender, pus-filling vesicles with surrounding erythema ENMT: Nasal exam nl Neck: No nuchal rigidity Respiratory: No Wheeze/Rhonchi/Rales Cardio Vascular: RRR, No murmur, gallop, rubs, NL S1 S2 Other GI comments:: Significantly distended, RLQ indwelling peritoneal catheter with purulent drainage from the insertion site. Erythema extended from the surrounding skin of the insertion site to periumbilical area. Extremities: normal strength in all extremities Neuro/Psych: No focal deficits ED Assessment - Assessment General Assessment: Cellulitis Leukocytosis Hyperkalemia End stage liver disease Cirrhosis Ascites Assessment/Comments:: CBC, CMP, UA Vancomycin Zosyn Kayexalate Admit to med surg ED Septic Shock - . Is Septic Shock (SBP<90, OR Lactate>4 mmol\L) present?: No - <6hrs of presentation: Vital Signs: Vital Signs - 8 hr 06/29/17 19:32 Temp 100 F HR 126 RR 16 BP 104/67 O2 Sat % 95 ED Reassessment (Disposition) - Reassessment Reassessment Condition:: Improved - Patient Disposition Discharge/Transfer:: Acute Care w/in this hosp Admitting Psych Physician:: Jerome Schmidt ED Discharge Plan - Patient Disposition Admit/Discharge/Transfer: Acute Care w/in this hosp
[2017-06-29 20:09] LABS: HEMATOCRIT 43.7 % (41.0-60); HEMOGLOBIN 14.4 gm/dL (12-16); MANUAL DIFF REQUIRED? YES; MEAN CELL VOLUME 96.1 fl (81-100); MEAN CORPUSCULAR HEMOGLOBIN 31.6 pg (27.0-31.0); MEAN CORPUSCULAR HGB CONC 32.9 pg (28.0-36.0); MEAN PLATELET VOLUME 6.7 fl; PLATELET COUNT 481 Th/cmm (150-400); RED BLOOD COUNT 4.55 Mil/cmm (3.80-5.10); RED CELL DISTRIBUTION WIDTH 16.6 % (11.5-20.0)
[2017-06-29 20:14] LABS: WHITE BLOOD COUNT 13.8 Th/cmm (4.8-10.8)
[2017-06-29 20:24] LABS: ALBUMIN 2.8 gm/dL (3.7-5.3); ALKALINE PHOSPHATASE 121 U/L (34-104); ANION GAP 12.2 (7.0-16.0); BILIRUBIN,TOTAL 0.9 mg/dL (0.3-1.0); BUN - UREA NITROGEN 22 mg/dL (7-25); CALCIUM SERUM 10.5 mg/dL (8.6-10.3); CARBON DIOXIDE 21.1 mEq/L (21.0-31.0); CHLORIDE 102 mEq/L (98-107); CREATININE - SERUM 0.9 mg/dL (0.6-1.2); GFR AFRICAN-AMERICAN > 60.0 ml/min (>90); GFR NON AFRICAN-AMERICAN > 60.0 ml/min; GLUCOSE 123 mg/dL (70-105); POTASSIUM SERUM 5.3 mEq/L (3.5-5.1); SGOT 27 U/L (13-39); SGPT/ALT 14 U/L (7-52); SODIUM SERUM 130 mEq/L (136-145); TOTAL PROTEIN,SERUM 5.5 gm/dL (6.0-8.3)
[2017-06-29 20:39] LABS: BAND NEUTROPHILE 6 % (0-10); EOSINOPHIL 0 % (0-5); LYMPHOCYTE 5 % (20-50); MONOCYTE 2 % (2-10); NEUTROPHILS 86 % (40-80); TOTAL CELLS COUNTED 100
[2017-06-29 20:40] LABS: BASOPHIL 1 % (0-3)
[2017-06-29] MEDS ORDERED: Piperacillin Sodium/Tazobact 3.375 gm Vial IV ONE (21:04)
[2017-06-30 00:40] VITALS: BP 107/68
[2017-06-30] MEDS ORDERED: Piperacillin Sodium/Tazobact 3.375 gm Vial IV ONE (03:43)
--- NOTE | 2017-06-30 08:45 | History and Physical ---
History of Present Illness - HPI Chief Complaint: Redness around abdominal catheter. HPI: Patient is a patient that has permanent abdominal catheter for drainage ascitis , 4 days ago she noticed redness around catheter and pus coming from wound. Vital Signs: Last Vital Signs Temp 98.2 F 06/30/17 08:00 Pulse 96 06/30/17 08:00 Resp 18 06/30/17 08:00 BP 106/76 06/30/17 08:00 Pulse Ox 100 06/30/17 08:00 Past Medical History Cardiovascular: Report: No Pertinent Hx Pulmonary: Report: No Pertinent Hx [employer]: Report: No Pertinent Hx GI: Report: Other (End stage Liver disease, ascitis) Psych: Report: Anxiety, Addictions Musculoskeletal: Report: Muscle Atrophy, Weakness Rheumatologic: Report: No pertinent Hx Infectious Disease: Report: No Pertinent Hx Renal/: Report: No Pertinent Hx Endocrine: Report: No Pertinent Hx Dermatology: Report: Cellulitis Family Medical History - Family Member Mother History Unknown: Yes Ethnicity: Non- Living Status: Hx Family Cancer: No Hx Family Coronary Artery Disease: No Hx Family Congestive Heart Failure: No Hx Family Hypertension: No Hx Family Stroke: No Hx Family Diabetes: No Hx Family Seizures: No Hx Family Dementia: No Hx Family AIDS: No Hx Family HIV: No Hx Family COPD: No Hx Family Hepatitis: No Hx Family Psychiatric Problems: No Hx Family Tuberculosis: No Father History Unknown: Yes Living Status: Hx Family Cancer: No Hx Family Coronary Artery Disease: No Hx Family Congestive Heart Failure: No Hx Family Hypertension: No Hx Family Stroke: No Hx Family Diabetes: Yes Hx Family Seizures: No Hx Family Dementia: No Hx Family AIDS: No Hx Family HIV: No Hx Family COPD: No Hx Family Hepatitis: No Hx Family Psychiatric Problems: No Hx Family Tuberculosis: No Social History Smoke: Quit Alcohol: Other (Former heavy drinker, just quiet) Drugs: None Lives: With Family Domestic Violence: Negative - Medications Home Medications: Home Medication Medication Instructions Recorded Type Sodium Chloride Tab [NaCL Tab] 500 mg PO DAILY 01/29/17 History Folic Acid [Folate*] 1 mg PO DAILY tab 02/02/17 Rx Magnesium Oxide [Mag-Oxide] 400 mg PO BID tab 02/02/17 Rx - Allergies Allergies/Adverse Reactions: Allergies Allergy/AdvReac Type Severity Reaction Status Date / Time Penicillins [PCN] Allergy Verified 06/29/17 21:10 Review of Systems - Review of Systems Constitutional: Report: Weakness Eyes: Report: No Significant ENT: Report: No Significant Respiratory: Report: SOB with Excertion Cardiovascular: Report: No Significant Gastrointestinal: Report: Other (Abdominal distension) Genitourinary: Report: No Significant Musculoskeletal: Report: No Significant Skin: Report: Other (Redness around abdominal catheter) Neurological: Report: Weakness Physical Exam - Physical Exam HEENT: Report: Ears Nose Throat within normal limits Neck: Report: Within normal limits Cardiovascular Systems: Report: Regular, Rate and Rhythm Respiratory: Report: Breath Sounds are within normal limits Abdomen: Report: Other (abdomen is distended with ascitis. There is a catheter in right side of abdomen, with redness a pus supuration) Back: Report: Inspection of back is within normal limits. Extremities: Report: Other (There is some red papulas in both legs) Skin: Report: Color of skin is within normal limits Neuro/Psych: Report: Mood affect is within normal limits - Assessment Assessment: Patient is awake, alert, calm, in no acute distress. Dx: Cellulites, Hyperkalemia, End stage liver disease, Cirrhosis, ascitis. - Plan Plan: Patient in IV AB, continue with home meds, pain control. Consult with ID and GI requested.
--- NOTE | 2017-06-30 11:16 | Consultation ---
Consult Note - Consult Note Service Date: 06/30/17 Referring Physician: Jerome Schmidt Consult Note: PHYSICIAN Consultation Note: Date of Admission: 06/29/17 Purpose of Consultation: Cellulitis of abdominal wall. Chief Complaint: Patient KWESI COX was admitted to location Medical[facility]Surgical Unit I with ABD WOUND CELLULITIS, END STAGE LIVER DISEAS. History of Present Illness: 62-year-old male with no significant past medical history ascites secondary to cirrhosis had permanent abdominal catheter for drainage of ascites. He developed redness assistance with the drainage of pus around the insertion site. She came to the ER for further evaluation and management. He denies any fever or chills. On initial evaluation, his temperature was 100F and WBC count was 13,800. He was tachycardic. Vancomycin IV was started. Infectious disease consultation was called for antibiotic management. Past Medical History: Allergies Allergy/AdvReac Type Severity Reaction Status Date / Time Penicillins [PCN] Allergy Verified 06/29/17 21:10 Vital Signs Temp 98.2 F 06/30/17 08:00 Pulse 96 06/30/17 08:00 Resp 18 06/30/17 08:00 BP 106/76 06/30/17 08:00 Pulse Ox 100 06/30/17 08:00 Intake & Output 06/29/17 06/30/17 06/30/17 18:59 06:59 18:59 Weight (lbs) 70.959 kg Other: # Voids 2 # Bowel Movements 1 Weight Source Bedscale Home Medication Medication Instructions Recorded Type Sodium Chloride Tab [NaCL Tab] 500 mg PO DAILY 01/29/17 History Folic Acid [Folate*] 1 mg PO DAILY tab 02/02/17 Rx Magnesium Oxide [Mag-Oxide] 400 mg PO BID tab 02/02/17 Rx Current Medications Generic Name Dose Route Start Last Admin Trade Name Freq PRN Reason Stop Dose Admin Folic Acid 1 mg 06/30/17 09:00 06/30/17 09:14 Folate PO 08/29/17 08:59 1 mg DAILY SHREYAS Administration Vancomycin HCl 1 gm/ Sodium 250 mls @ 165 mls/hr 06/30/17 21:00 Chloride IV 08/29/17 20:59 Q12H SHREYAS Ibuprofen 800 mg 06/29/17 22:59 Motrin PO 08/28/17 22:58 TID PRN Pain or Fever >101 Magnesium Oxide 400 mg 06/30/17 09:00 06/30/17 09:14 Mag-Oxide PO 08/29/17 08:59 400 mg BID SHREYAS Administration Miscellaneous 1 06/29/17 22:44 Vancomycin Iv Per Pharmacy 08/28/17 22:43 PRN PRN PROTOCOL Miscellaneous 1 06/29/17 22:44 Zosyn Iv Per Pharmacy 08/28/17 22:43 PRN PRN PROTOCOL Sodium Chloride 0.5 gm 06/30/17 09:00 06/30/17 09:13 Nacl Tab PO 08/29/17 08:59 0.5 gm DAILY SHREYAS Administration Review of Systems: A 12 point ROS was reviewed with the pertinent positive and negatives noted in the HPI. Social History Smoking Status Never smoker Drug Use No Alcohol Use No Family Medical History Family Medical History Start: 06/29/17 22: 20 Freq: ONCE Status: Active Document 06/29/17 22:40 RADHA (Rec: 06/30/17 04:59 RADHA DELORES-WOW- [id number]) Family Medical History Father History Unknown Yes Living Status Hx Family Cancer No Hx Family Coronary Artery Disease No Hx Family Congestive Heart Failure No Hx Family Hypertension No Hx Family Stroke No Hx Family Diabetes Yes Hx Family Seizures No Hx Family Dementia No Hx Family AIDS No Hx Family HIV No Hx Family COPD No Hx Family Hepatitis No Hx Family Psychiatric Problems No Hx Family Tuberculosis No Mother Ethnicity Non- Living Status Hx Family Cancer No Hx Family Coronary Artery Disease No Hx Family Congestive Heart Failure No Hx Family Hypertension No Hx Family Stroke No Hx Family Diabetes No Hx Family Seizures No Hx Family Dementia No Hx Family AIDS No Hx Family HIV No Hx Family COPD No Hx Family Hepatitis No Hx Family Psychiatric Problems No Hx Family Tuberculosis No Physical Exam: General: Comfortable, cachectic. Not in acute distress. HEENT: Head: Normocephalic, atraumatic. Oral cavity: Moist, pink tongue. Eyes : pallor is present, icterus present Neck: Supple, no JVD, no use of X his neck muscles. Cardio: S1 and S2 within normal limits regular rhythm no murmur no gallop. Respiratory: Vesicular breath sound, no crackles, no wheezing. Abdominal: Soft, distended, bowel sounds present. Genital/Urinary: Deferred. Extremities: No cyanosis, no clubbing, no edema. Neurological: Alert, awake, oriented 3. Assessment: 1. Sepsis. 2. Abdominal wall cellulitis. Rule out abscess. 3. History is liver disease. 4. Protein calorie malnutrition. 5. Cirrhosis. 6. PD catheter and site infection. Plan: Will continue vancomycin and start Levaquin. Check CT scan abdomen pelvis and AFP. check lactic acid. may consult Dr aLdd for change of her PD catheter. Thank you Dr. Schmidt for involving me in taking care of this patient. Signed, Stevie Duran M.D. [id number]
--- NOTE | 2017-06-30 14:51 | Diagnostic Imaging Report ---
CT abdomen and pelvis without intravenous contrast Indication: Abscess Comparison: None, Technique: Axial images were obtained from the lung bases to the bilateral proximal femurs without IV contrast. Coronal reconstructions were made. total DLP: 550 , CTDI10.4 FINDINGS: Bibasal hypoventilatory and subsegmental passive atelectatic changes are noted. Assessment of the solid organs is limited due to lack of IV contrast. There is severe abdominal and pelvic ascites. Shunt catheter is noted terminating within the right upper quadrant. Cirrhotic liver is noted. No focal lesions. No focal splenic lesions. Assessment of the pancreas is limited due to patient's ascites. Pancreatic head calcifications the sequela of chronic inflammatory process. There is a 2 cm left adrenal nodule with Hounsfield units less than 10. 4 mm left renal hilar calcification is seen additional punctate left renal hilar calcifications. No hydronephrosis. There is mild distal fecal impaction. Areas of large bowel wall thickening are noted. Appendix is not visualized. Diverticulosis is noted. Diffuse atherosclerosis is noted. Anasarca is noted. Old left rib fractures are noted. IMPRESSION: Severe abdominal and pelvic ascites. Assessment for abscess is limited due to severe ascites, correlate clinically. Cirrhotic liver. Scattered areas of large bowel wall thickening likely related to inflammatory processes/probably from patient's ascites. Diverticulosis. Assessment for diverticulitis is limited due to patient's ascites. Left renal hilar calcifications probably vascular. No evidence of hydronephrosis. 2 cm left adrenal nodule with Hounsfield units most suggestive of a lipid rich adenoma. Shunt catheter noted terminating along the left upper quadrant. Mild distal fecal impaction. Atherosclerotic vascular disease. Anasarca.
--- NOTE | 2017-06-30 22:50 | Consultation ---
DATE OF CONSULTATION: 06/30/2017 REASON FOR CONSULTATION: Ascites. This consult was obtained through the courtesy of Dr. Jerome Schmidt for this 62-year-old with history of decompensated cirrhosis who had a PleurX catheter placed into her abdomen, who presented now with infected site and with massive ascites. The patient complains of abdominal pain, itching at this site, some blisters. [facility] a [facility] and they were doing this paracentesis on a regular basis. PAST MEDICAL HISTORY: Decompensated cirrhosis. PAST SURGICAL HISTORY: Negative except for the catheter placed. SOCIAL HISTORY: The patient is ex-alcoholic, quit 6 months ago, ex-smoker, quit 5 years ago. FAMILY HISTORY: Noncontributory. HOME MEDICATIONS: Folic acid, magnesium. ALLERGIES: PENICILLIN. REVIEW OF SYSTEMS: No unintentional weight loss. No hematemesis, melena or hematochezia. PHYSICAL EXAMINATION: GENERAL: The patient is awake, oriented to self, place, and time, mild distress. VITAL SIGNS: Blood pressure is 115/72, heart rate 107, respiratory rate 18, temperature is 98.6. HEAD AND NECK: Pupils reactive to light. Extraocular muscles intact. Sclerae are anicteric, conjunctivae not pale. Oral cavity, no lesion. NECK: Supple. CHEST: Good air entry. LUNGS: Clear to auscultation. CARDIOVASCULAR: Regular rate and rhythm. No murmur or gallop. ABDOMEN: Usually distended. There is a site of his bowel sounds. There is a catheter on the right side. EXTREMITIES: Lower extremities, no edema. CENTRAL NERVOUS SYSTEM: Grossly nonfocal. LABORATORY DATA: White count 13.8, platelets 481. Sodium was 130, potassium 5.3. Liver enzymes are normal except albumin is 2.8. CAT scan showed ascites. ASSESSMENT AND PLAN: 1. Ascites. 2. Possible spontaneous bacterial peritonitis and possible infected PleurX tube site. RECOMMENDATIONS: 1. Continue his IV antibiotics. 2. Paracentesis in the morning. 3. If there is infection, then consider changing the catheter. 4. Chronic liver disease. Already patient's labs has been sent including hepatitis panel, and alpha fetoprotein to monitor at this time picture is kind of mixed with cirrhosis. We usually get low platelet count which is not, but we get low albumin, which is the case he has. We will monitor the labs. I do the workup for chronic liver disease and further recommendations to follow. Thank you, Dr. Schmidt for allowing me to participate in the care of the patient. If you have any further questions, please let me know. JOB# [id number] MTDD
--- NOTE | 2017-07-01 13:13 | Discharge Summary ---
General Discharge Summary - Discharge Summary Date of Admission: 06/29/17 Admitting Diagnosis: Cellulites, Hyperkalemia, End Stage Liver Disease, Cirrhosis, Ascitis Discharge Date: 07/01/17 Discharge Diagnosis: Celluylites, Hyperkalemia, ESLD, Cirrhosis, Ascitis. Hospital Course: Patient responded to treatment, and by insurance request was transferred to other hospital Treatment: She received IV AB, Pain control, ascitis was drainage, she was evaluated by GI Disposition: TRANSFER TO ACUTE HOSP Home Medications: Home Medication Medication Instructions Recorded Type Sodium Chloride Tab [NaCL Tab] 500 mg PO DAILY 01/29/17 History Folic Acid [Folate*] 1 mg PO DAILY tab 02/02/17 Rx Magnesium Oxide [Mag-Oxide] 400 mg PO BID tab 02/02/17 Rx Activity: As Tolerated Discharge Diet: 2 Gram Sodium Consults and Follow-Up: Jerome Schmidt [Primary Care Provider] - Consulting Speciality: Cardiac, GI
== END 2017-07-01 01:26 | disposition short-term general hospital (02) | DRG 919 ==
LOC: ER 18:55 → MSI 21:54
PROVIDERS: ADMIT General Practice; ATTEND General Practice
DX: T85.79XA Infection and inflammatory reaction due to other internal prosthetic devices, implants and grafts, initial encounter (principal); A41.9 Sepsis, unspecified organism; R18.8 Other ascites; E46 Unspecified protein-calorie malnutrition; L03.311 Cellulitis of abdominal wall; Z51.5 Encounter for palliative care; Y83.8 Other surgical procedures as the cause of abnormal reaction of the patient, or of later complication, without mention of misadventure at the time of the procedure; K74.60 Unspecified cirrhosis of liver; K72.90 Hepatic failure, unspecified without coma; E87.5 Hyperkalemia; Z88.0 Allergy status to penicillin; Z83.3 Family history of diabetes mellitus; Z72.89 Other problems related to lifestyle; Z79.899 Other long term (current) drug therapy; Y92.89 Other specified places as the place of occurrence of the external cause; Z68.27 Body mass index [BMI] 27.0-27.9, adult
CPT/HCPCS: 36415-UA; 80053-TC; 82140-TC; 83605; 85007-TC; 85025-TC; 85027-TC; 87070-90; 87075-90; 87205-90; 93005; J2543; J3370; J7040